=== PATIENT | male | born 1940 | race Caucasian/White ===

== ENCOUNTER 2017-12-10 13:46 | Inpatient (IN) | payer MEDICARE, OTHER ==
--- NOTE | 2017-12-10 14:18 | ED Physician Chart ---
ED Chief Complaint/HPI - Patient Information Date Seen:: 12/10/17 Time Seen:: 14:05 Chief Complaint:: depression History of Present Illness:: Last night patient stated he couldn't breathe so he told the nurse it his custodial facility that he likely would shoot himself. He denies any self -harm ideation at present. Allergies:: Allergies Allergy/AdvReac Type Severity Reaction Status Date / Time No Known Allergies Allergy Verified 12/10/17 14:01 Vitals:: Vital Signs - 8 hr 12/10/17 14:02 Temp 98.8 F HR 81 RR 16 BP 121/72 O2 Sat % 90 Historian:: Patient Review:: Transfer documents Reviewed ED Review of Systems - Review of Systems General/Constitutional: No fever, No chills Skin: Skin lesions Head: No headache Eyes: No loss of vision ENT: No earache Neck: No neck pain Cardio Vascular: No chest pain Pulmonary: No SOB GI: No nausea, No vomiting, No diarrhea G/U: No dysuria Musculoskeletal: No bone or joint pain Endocrine: No polyuria, No polydipsia Psychiatric: Prior psych history, Depression, Suicidal ideation Hematopoietic: No bruising Allergic/Immuno: No urticaria Neurological: No syncope, No focal symptoms, No weakness ED Past Medical History - Past Medical History Past Medical History: HTN, DM, Asthma/COPD, Other (.) Family History: None Social History: Non Smoker, No Alcohol, Care Facility, Other (patient states he used to smoke cigarettes and formerly drank alcohol in moderation) Surgical History: other (malignant melanoma with lymph node dissection left groin) Psychiatricy History: Depression Medication: Reviewed Family Medical History - Family Member Mother History Unknown: Yes ED Physical Exam - Physical Examination General/Constitutional: Alert Other Gen/Cons comments:: Chronically ill-appearing; in no acute distress; states the year is either 2016 oh 2018 Head: Atraumatic Eyes: Lids, conjuctiva normal Other Skin comments:: Facial capillaries noted; skin (especially legs) are pale ENMT: External ears, nose nl Other ENMT comments:: Declines examination of his throat Neck: No nuchal rigidity Respiratory: Nl effort/Exclusion Other Respiratory comments:: 1 out of 4 scattered expiratory wheezing Other Cardio Vascular comments:: Heart sounds are faint; pulse is regular GI: No tenderness/rebounding/guarding : No CVA tenderness Other Extremities comments:: Redness and crusting distal left lower leg; 4 out of 4 swelling left ankle and left foot Neuro/Psych: No focal deficits Misc: Normal back ED Labs/Radiology/EKG Results - Lab Results Results: Laboratory Results - last 24 hr 12/10/17 12/10/17 14:20 14:20 WBC 7.2 RBC 2.68 L Hgb 8.1 L Hct 24.5 L MCV 91.4 MCH 30.4 MCHC Differential 33.2 RDW 20.8 H Plt Count 157 MPV 6.1 Neutrophils % 87.2 H Lymphocytes % 5.6 L Monocytes % 4.2 Eosinophils % 2.6 Basophils % 0.4 Sodium 135 L Potassium 4.6 Chloride 94 L Carbon Dioxide 41.3 H Anion Gap 4.3 L BUN 25 Creatinine 0.9 Est GFR ( Amer) TNP Est GFR (Non-Af Amer) TNP BUN/Creatinine Ratio 27.8 Glucose 118 H Calcium 9.0 Total Bilirubin 0.5 AST 18 ALT 45 Alkaline Phosphatase 126 H Total Protein 6.1 Albumin 2.5 L Globulin 3.6 Albumin/Globulin Ratio 0.7 L Triglycerides 109 Cholesterol 145 LDL Cholesterol Direct 89 HDL Cholesterol 37 - EKG Interpretations Rate & Rhythm: normal sinus rhythm with a rate of 74; [place]: normal Comments:: ST segment elevation in inferior leads most likely due to early repolarization. ED Assessment - Assessment General Assessment: Patient refuses venous Doppler of left leg ED Septic Shock - . Is Septic Shock (SBP<90, OR Lactate>4 mmol\L) present?: No - <6hrs of presentation: Vital Signs: Vital Signs - 8 hr 12/10/17 14:02 Temp 98.8 F HR 81 RR 16 BP 121/72 O2 Sat % 90 ED Reassessment (Disposition) - Reassessment Reassessment Condition:: Unchanged - Diagnosis Diagnosis:: Suicide ideation; depression; anemia; COPD - Patient Disposition Admitted to:: [facility] Admitting Medical Physician:: Alan Fleming Admitting Psych Physician:: Drea Spencer Condition at Disposition:: Stable, Improved
[2017-12-10 14:37] LABS: % BASOPHILS 0.4 % (0.0-2.0); % EOSINOPHILS 2.6 % (0.0-5.0); % LYMPHOCYTES 5.6 % (20.0-50.0); % MONOCYTES 4.2 % (2.0-10.0); % NEUTROPHILS 87.2 % (40.0-80.0); EOSINOPHILE ABSOLUTE 0.2 Th/cmm (0.1-0.4); HEMATOCRIT 24.5 % (41.0-60); HEMOGLOBIN 8.1 gm/dL (12-16); LYMPHOCYTE ABSOLUTE 0.4 Th/cmm (1.5-3.0); MEAN CELL VOLUME 91.4 fl (80-99); MEAN CORPUSCULAR HEMOGLOBIN 30.4 pg (27.0-31.0); MEAN CORPUSCULAR HGB CONC 33.2 pg (28.0-36.0); MEAN PLATELET VOLUME 6.1 fl; MONOCYTE ABSOLUTE 0.3 Th/cmm (0.3-1.0); NEUTROPHILE ABSOLUTE 6.3 Th/cmm (1.8-8.0); PLATELET COUNT 157 Th/cmm (150-400); RED BLOOD COUNT 2.68 Mil/cmm (3.80-5.80); RED CELL DISTRIBUTION WIDTH 20.8 % (11.5-20.0); WHITE BLOOD COUNT 7.2 Th/cmm (4.8-10.8)
[2017-12-10 14:48] LABS: ALB/GLOB RATIO 0.7 (1.0-1.8); ALBUMIN 2.5 gm/dL (4.2-5.5); ALKALINE PHOSPHATASE 126 U/L (34-104); BILIRUBIN,TOTAL 0.5 mg/dL (0.3-1.0); BUN - UREA NITROGEN 25 mg/dL (7-25); CHLORIDE 94 mEq/L (98-107); CHOLESTEROL 145 mg/dL (<200); CREATININE - SERUM 0.9 mg/dL (0.7-1.3); GLUCOSE 118 mg/dL (70-105); HDL -HIGH DENSITY LIPOPROTEIN 37 mg/dL (23-92); POTASSIUM SERUM 4.6 mEq/L (3.5-5.1); SGOT 18 U/L (13-39); SGPT/ALT 45 U/L (7-52); SODIUM SERUM 135 mEq/L (136-145); TOTAL PROTEIN,SERUM 6.1 gm/dL (6.0-8.3); TRIGLYCERIDES 109 mg/dL (<150)
[2017-12-10 15:10] LABS: ANION GAP 4.3 (7.0-16.0); CARBON DIOXIDE 41.3 mEq/L (21.0-31.0)
[2017-12-10 17:01] LABS: A1C % 6.3 % (4.0-6.0)
[2017-12-10 20:03] VITALS: BP 124/60
[2017-12-10] MEDS ORDERED: Non-Formulary Item 1 EA (Acetaminophen [Pain Reliever] 650 MG) PO PRN (21:38)
[2017-12-10] MEDS ORDERED: ALBUTEROL SULFATE HHN PRN (21:38)
[2017-12-10] MEDS ORDERED: INSULIN ASPART SLIDING SCALE 100 UNITS/ML UNIT SUBQ SCH (21:45)
[2017-12-10] MEDS: Albuterol/Ipratropium Neb 3 ML AERS HHN PRN (22:32)
[2017-12-11] MEDS: Albuterol/Ipratropium Neb 3 ML AERS HHN PRN (00:38)
[2017-12-11] MEDS ORDERED: Albuterol Nebulizer 2.5mg/3mL HHN SCH (07:00)
[2017-12-11] MEDS: Albuterol Nebulizer 2.5mg/3mL HHN SCH ×2 (07:02→11:06)
[2017-12-11] MEDS ORDERED: INSULIN ASPART SLIDING SCALE 100 UNITS/ML UNIT SUBQ SCH (07:30)
--- NOTE | 2017-12-11 08:36 | History and Physical ---
History of Present Illness - HPI Chief Complaint: depression w/ suicidal ideations HPI: 77 year old male who is severely depression noted at the SNF to have told the nurse that he likely "shoot himself." Patient has a previous history of HTN,DM, Asthma,COPD, malignant melanoma w/ lymph node dissection L groin. 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 Pertinent Hx GI: Report: No Pertinent Hx Psych: Report: Depression Musculoskeletal: Report: No Pertinent Hx Rheumatologic: Report: No pertinent Hx Infectious Disease: Report: No Pertinent Hx Renal/: Report: No Pertinent Hx Endocrine: Report: Diabetes Dermatology: Report: Melanoma - Past Surgical History Past Surgical History: Other (L groin dissection for malignant melanoma) Family Medical History - Family Member Mother History Unknown: Yes Social History Smoke: No Alcohol: None Drugs: None Lives: [facility] - Medications Home Medications: Home Medication Medication Instructions Recorded Type Acetaminophen [Pain Reliever] 650 mg PO Q4H PRN 12/10/17 History Acetaminophen [Pain Reliever] 650 mg PO Q6H PRN 12/10/17 History Acetylcysteine 20% [Mucomyst 20%] 0.5 ml INH Q4H PRN 12/10/17 History Albuterol Sulfate 3 ml HHN Q4H PRN 12/10/17 History Amiodarone HCl 200 mg PO BID 12/10/17 History Ascorbic Acid [Vitamin C] 500 mg PO DAILY 12/10/17 History Citalopram Hydrobromide [Celexa] 20 mg PO DAILY 12/10/17 History Diltiazem [Cardizem] 30 mg PO TID 12/10/17 History Furosemide [Lasix] 20 mg PO Q12H 12/10/17 History Guaifenesin [Mucus Relief] 600 mg PO BID 12/10/17 History Insulin Aspart Sliding Scale See Protocol SUBQ PRN 12/10/17 History [NovoLOG INSULIN SLIDING SCALE] Insulin Detemir [Levemir Insulin] 35 iu SUBQ HS 12/10/17 History Ipratropium/Albuterol Sulfate 3 ml INH Q2H PRN 12/10/17 History [Iprat-Albut 0.5-3(2.5) mg/3 ml] Menthol-Zinc Oxide 0.44 - 20.625 % TP BID 12/10/17 History Metoprolol Tartrate 25 mg PO BID 12/10/17 History Midodrine HCl 1 tab PO Q8H PRN 12/10/17 History Multivitamin with Minerals 1 tab PO DAILY 12/10/17 History [Multivitamins with Minerals] Pantoprazole Sodium 1 tab PO DAILY 12/10/17 History Rivaroxaban [Xarelto] 20 mg PO DAILY 12/10/17 History Trazodone HCl 1 tab PO HS 12/10/17 History - Allergies Allergies/Adverse Reactions: Allergies Allergy/AdvReac Type Severity Reaction Status Date / Time No Known Allergies Allergy Verified 12/10/17 14:01 Review of Systems - Review of Systems Constitutional: Report: No Significant Eyes: Report: No Significant ENT: Report: No Significant Respiratory: Report: No Significant Cardiovascular: Report: No Significant Gastrointestinal: Report: No Significant Genitourinary: Report: No Significant Musculoskeletal: Report: No Significant Skin: Report: No Significant Neurological: Report: No Significant Physical Exam - Physical Exam HEENT: Report: Ears Nose Throat within normal limits, Pharnyx within normal limits Neck: Report: Within normal limits Cardiovascular Systems: Report: +s1/s2 noted, Regular, Rate and Rhythm Respiratory: Report: Breath Sounds are within normal limits, Clear to Auscultation of lung gomez Abdomen: Report: Non-tender to palpation Back: Report: Inspection of back is within normal limits. Skin: Report: Color of skin is within normal limits Neuro/Psych: Report: Depressed affect - Assessment Assessment: severe depression HTN DM Anemia r/o GIB r/o CA h/o malignant melanoma w/ lymph node dissection L groin - Plan Plan: will order stool occult cbc, cmp tomorrow hem/onc consult GI consult chest xray KUB PT/PTT/INR doppler US venous pending
[2017-12-11] MEDS ORDERED: Diltiazem 30 mg Tab PO SCH (09:00)
[2017-12-11] MEDS ORDERED: Menthol/Zinc Oxide Oint 113gm Tube TP SCH (09:00)
[2017-12-11] MEDS ORDERED: Pantoprazole 40 mg EC Tab PO SCH ×2 (09:00)
[2017-12-11] MEDS ORDERED: Multivitamin w/ Minerals Tab PO SCH (09:00)
[2017-12-11 09:30] LABS: INR 1.02 (0.5-1.4); PROTHROMBIN TIME (TEST) 10.6 SECONDS (9.5-11.5)
[2017-12-11 10:11] LABS: HEMATOCRIT 24.1 % (41.0-60); MEAN CELL VOLUME 92.1 fl (80-99); MEAN CORPUSCULAR HEMOGLOBIN 29.4 pg (27.0-31.0); MEAN CORPUSCULAR HGB CONC 31.9 pg (28.0-36.0); MEAN PLATELET VOLUME 6.4 fl; PLATELET COUNT 166 Th/cmm (150-400); RED BLOOD COUNT 2.62 Mil/cmm (3.80-5.80); RED CELL DISTRIBUTION WIDTH 20.9 % (11.5-20.0); WHITE BLOOD COUNT 7.2 Th/cmm (4.8-10.8)
[2017-12-11 10:24] LABS: ALB/GLOB RATIO 0.7 (1.0-1.8); ALBUMIN 2.4 gm/dL (4.2-5.5); ALKALINE PHOSPHATASE 115 U/L (34-104); ANION GAP 6.4 (7.0-16.0); BILIRUBIN,TOTAL 0.5 mg/dL (0.3-1.0); BUN - UREA NITROGEN 21 mg/dL (7-25); CALCIUM SERUM 8.9 mg/dL (8.6-10.3); CHLORIDE 96 mEq/L (98-107); CREATININE - SERUM 0.9 mg/dL (0.7-1.3); GLUCOSE 159 mg/dL (70-105); POTASSIUM SERUM 4.4 mEq/L (3.5-5.1); SGOT 14 U/L (13-39); SGPT/ALT 35 U/L (7-52); SODIUM SERUM 137 mEq/L (136-145)
[2017-12-11 10:27] LABS: HEMOGLOBIN 7.7 gm/dL (12-16)
--- NOTE | 2017-12-11 10:28 | Diagnostic Imaging Report ---
Portable chest x-ray HISTORY: Shortness of breath The heart size is difficult to assess with portable technique. There is severe bilateral pulmonary infiltrates (right greater than left). The overall appearance suggests chronic change. Pleural thickening along with abnormal streaky pulmonary parenchymal density noted within the left upper hemithorax. Again, the findings appear chronic. Atherosclerotic calcination seen in the aorta. Diffuse degenerative changes are seen to the spine. IMPRESSION: 1. Severe bilateral interstitial lung changes along with pleural thickening within the left apical area. The overall appearance suggests chronic change. Superimposed pneumonia cannot be excluded. Clinical correlation is needed.
--- NOTE | 2017-12-11 10:29 | Diagnostic Imaging Report ---
KUB abdominal film HISTORY: Pain, melanoma There is a nonspecific gas pattern of nondilated bowel. Stool noted within the ascending colon and rectal regions. No free. No air. Surgical clips are seen in the right upper quadrant of the abdomen consistent with a prior cholecystectomy. IMPRESSION: 1. Nonspecific bowel gas pattern 2. Findings consistent with a prior cholecystectomy
[2017-12-11 11:09] LABS: BAND NEUTROPHILE 3 % (0-10); LYMPHOCYTE 3 % (20-50); MONOCYTE 4 % (2-10); NEUTROPHILS 90 % (40-80); PLATELET ESTIMATE ADEQUATE (NORMAL); TOTAL CELLS COUNTED 100
--- NOTE | 2017-12-11 13:18 | Psychosocial Evaluation ---
DATE OF SERVICE: 12/11/2017 Also, this is a discharge summary as the patient was sent to the med/surg unit because of low oxygen. IDENTIFYING INFORMATION: The patient is a 77-year-old male. REASON FOR ADMISSION: The patient was admitted because of depression. When I talked to the patient, he answered all my questions "I don't know." He was not interested in answering any of my questions. He asked me to leave. He was very irritable. I was unable to get any information from this patient because of his behavior. The patient was sent from the [facility] because of depression. He reported to them that he wanted to harm himself; however, when I asked the patient about that, he would not answer me. He would not answer any question regarding sleep, appetite, suicide, or homicide. He was irritable. PAST PSYCHIATRIC HISTORY: Depression. The patient has been on citalopram 20 mg a day and trazodone. MEDICAL HISTORY: He has a history of hypertension and COPD. He is on oxygen. Apparently, oxygen went down to 86, so he has to be transferred to medical floor. ALLERGIES: The patient has no known drug allergies. FAMILY AND SOCIAL HISTORY: Unobtainable because the patient refused to participate. Apparently, he has been living in a nursing facility at the [facility]. MENTAL STATUS EXAMINATION: The patient was alert, but irritable. He would not tell me the date, where he is, and why he is here. He has been reported to be depressed and told the staff at the care home that he was suicidal. Unable to test his intelligence. He denies about suicide or homicide, but would not answer me. He would not participate in memory testing or do any formal mental status exam. His insight and judgment are impaired. IMPRESSION: AXIS I: Depression, not otherwise specified. ASSETS: He was accepting. Negative poor coping skills. PLAN: The patient will be transferred to the medical floor. We will keep him on suicide precaution. We will continue with Celexa. The patient was discharged to the med/surg unit. Expect him to come back when he is medically cleared to adjust his medications. JOB# [id number]
--- NOTE | 2017-12-11 20:57 | Consultation ---
DATE OF CONSULTATION: 12/11/2017 REFERRING PHYSICIAN: Alan Fleming D.O. REASON FOR CONSULTATION: Melanoma and anemia. HISTORY OF PRESENT ILLNESS: The patient is a 77-year-old male who was admitted to geropsych unit because of saying he is going to shoot himself. The patient was found to be anemic and history of melanoma. Therefore, I was asked to evaluate. PAST MEDICAL HISTORY: Hypertension, diabetes, asthma, COPD, psychosis, melanoma as mentioned above. MEDICATIONS: Reviewed. SOCIAL HISTORY: Resides in a nursing facility. PAST SURGICAL HISTORY: Melanoma resection and lymph node dissection from left groin. PHYSICAL EXAMINATION: GENERAL: The patient is not in a good mood, not very cooperative, but he let me examine his back to previous melanoma that he said it is in the upper back. VITAL SIGNS: Stable. HEENT: Atraumatic. NECK: No lymphadenopathy. CHEST: Good air entry. ABDOMEN: Soft. No organomegaly, obese. BACK: Scars of previous infection on the upper abdomen. EXTREMITIES: Edema of left lower extremity. LABORATORY DATA: Hemoglobin 7.7, normal MCV, white count and platelets are normal PT, PTT normal. Creatinine 0.9. Chest x-ray was reviewed, no neoplasm or interstitial infiltrate. ASSESSMENT: 1. Anemia of normocytic index. Stool occult blood was ordered. I will get ferritin, iron binding capacity, B12 and folate level. 2. History of melanoma with lymph node dissection from left groin. The swelling in left lower extremity could be related to lymph node dissection, left groin. However, venous duplex to evaluate for deep vein thrombosis will be required. Initial order was placed and the patient refused. I will place another order and I spoke with the patient. He seems to agree and follow CBC. There is no need for transfusion today. There is no clinical evidence of recurrence of melanoma at this time. Thank you, Dr. Fleming for the opportunity to participate in the care of this interesting case for you. JOB# [id number]
[2017-12-11] MEDS ORDERED: Insulin Detemir 100 units/mL 10mL Vial SUBQ SCH (21:00)
[2017-12-13 04:08] LABS: FOLIC ACID 13.7 ng/mL (>3.0)
[2017-12-13 04:08] LABS: FERRITIN 209 ng/mL (30-400); IRON LC 52 ug/dL (38-169); TIBC (LC) 187 ug/dL (250-450); UIBC 135 ug/dL (111-343)
--- NOTE | 2017-12-20 17:27 | Progress Notes ---
DATE: 12/20/2017 Case was discussed with staff of the patient, reviewed records. The patient continued to be depressed, continues to be ____ himself, but in general, he is better. His affect is more animated. He is able to converse more. He denies any current intent to harm himself or anybody. He is eating better, 75% of his meals. The swelling in his left lower extremity and he did the study, it was negative for DVT. So far, he is compliant with the medication with no side effects. He is on Remeron 7.5 mg at bedtime with no side effects. Thank you very much for allowing me to participate in the care of this most interesting gentleman. JOB# [id number]
== END 2017-12-11 11:26 | DRG 885 ==
LOC: ER 13:46 → GERO2 16:00
PROVIDERS: ADMIT Psychiatry & Neurology Psychiatry; ATTEND Psychiatry & Neurology Psychiatry
DX: F32.2 Major depressive disorder, single episode, severe without psychotic features (principal); E43 Unspecified severe protein-calorie malnutrition; R45.851 Suicidal ideations; D64.9 Anemia, unspecified; E11.9 Type 2 diabetes mellitus without complications; J44.9 Chronic obstructive pulmonary disease, unspecified; I10 Essential (primary) hypertension; Z79.4 Long term (current) use of insulin; Z87.891 Personal history of nicotine dependence; Z85.820 Personal history of malignant melanoma of skin
CPT/HCPCS: 36415-UA; 71045-TC; 74000-TC; 80053-TC; 80061-TC; 82607-90; 82728-90; 82746-90; 83036-90; 83540-90; 83550-90; 83880-TC; 84443-TC; 85007-TC; 85025-TC; 85027-TC; 85610-TC; 85730-TC; 86592-TC; 93005; 94640; 94760; J0696; J1815; J7613; Z7610

== ENCOUNTER 2017-12-11 09:56 | Inpatient (IN) | payer MEDICARE, OTHER ==
[2017-12-11 12:17] VITALS: BP 116/54
[2017-12-11] MEDS ORDERED: ERYTHROMYCIN LACT IV SCH (12:45)
[2017-12-11] MEDS ORDERED: SODIUM CHLORIDE 0.9% IV SCH (12:45)
[2017-12-11 13:34] LABS: HEMATOCRIT 24.1 % (41.0-60); MEAN CELL VOLUME 92.2 fl (80-99); MEAN CORPUSCULAR HEMOGLOBIN 30.2 pg (27.0-31.0); MEAN CORPUSCULAR HGB CONC 32.8 pg (28.0-36.0); MEAN PLATELET VOLUME 6.3 fl; PLATELET COUNT 189 Th/cmm (150-400); RED BLOOD COUNT 2.62 Mil/cmm (3.80-5.80); RED CELL DISTRIBUTION WIDTH 20.6 % (11.5-20.0)
[2017-12-11 13:46] LABS: HEMOGLOBIN 7.9 gm/dL (12-16); MANUAL DIFF REQUIRED? YES
[2017-12-11 14:08] LABS: BAND NEUTROPHILE 2 % (0-10); LYMPHOCYTE 7 % (20-50); MONOCYTE 4 % (2-10); NEUTROPHILS 86 % (40-80); TOTAL CELLS COUNTED 100
[2017-12-11 14:09] LABS: EOSINOPHIL 1 % (0-5); PLATELET ESTIMATE ADEQUATE (NORMAL)
[2017-12-11 15:15] LABS: ALB/GLOB RATIO 0.7 (1.0-1.8); ALBUMIN 2.4 gm/dL (4.2-5.5); ALKALINE PHOSPHATASE 114 U/L (34-104); BILIRUBIN,TOTAL 0.5 mg/dL (0.3-1.0); BUN - UREA NITROGEN 21 mg/dL (7-25); CALCIUM SERUM 9.1 mg/dL (8.6-10.3); CHLORIDE 96 mEq/L (98-107); CREATININE - SERUM 0.9 mg/dL (0.7-1.3); GLUCOSE 129 mg/dL (70-105); POTASSIUM SERUM 4.4 mEq/L (3.5-5.1); SGOT 14 U/L (13-39); SGPT/ALT 34 U/L (7-52); SODIUM SERUM 137 mEq/L (136-145)
[2017-12-11 15:20] LABS: CARBON DIOXIDE 40.4 mEq/L (21.0-31.0)
[2017-12-11] MEDS: Albuterol Nebulizer 2.5mg/3mL HHN PRN ×2 (15:22→18:44)
[2017-12-11] MEDS ORDERED: INSULIN ASPART SLIDING SCALE 100 UNITS/ML UNIT SUBQ SCH (16:30)
--- NOTE | 2017-12-11 17:01 | History and Physical ---
History of Present Illness - HPI Chief Complaint: Low O2 HPI: 77 year old male who is was originally admitted to [facility] for severe depression and for possible thoughts of hurting himself. Patient was noted to have increased chest congestion and low O2 and was subsequently transferred to med/surg for further evaluation and treatment. Patient has a history of HTN,DM, Asthma, COPD, malignant melonoma w/ lymph node dissection to the L groin. 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 Pertinent Hx GI: Report: No Pertinent Hx Psych: Report: Depression Musculoskeletal: Report: No Pertinent Hx Rheumatologic: Report: No pertinent Hx Infectious Disease: Report: No Pertinent Hx Renal/: Report: No Pertinent Hx Endocrine: Report: Diabetes Dermatology: Report: Melanoma - Past Surgical History Past Surgical History: Other (s/p L groin dissection of a malignant melonoma) Family Medical History - Family Member Mother History Unknown: Yes Social History Smoke: No Alcohol: None Drugs: None Lives: Senior Living - Medications Home Medications: Home Medication Medication Instructions Recorded Type Acetaminophen [Pain Reliever] 650 mg PO Q4H PRN 12/10/17 History Pantoprazole Sodium 1 tab PO DAILY 12/10/17 History Acetaminophen [Tylenol] 650 mg PO Q6H PRN tab 12/11/17 Rx Acetylcysteine 20% [Mucomyst 20%] 0.5 ml HHN [id number] vial 12/11/17 Rx Albuterol Nebulizer 2.5mg/3mL 1.25 mg HHN [id number] each 12/11/17 Rx [Albuterol Neb UD*] Albuterol/Ipratropium Neb [Duoneb 3 ml HHN Q2H PRN aers 12/11/17 Rx Neb] Amiodarone [Cordarone] 200 mg PO BID tab 12/11/17 Rx Ascorbic Acid [Vitamin C] 500 mg PO DAILY tab 12/11/17 Rx Citalopram Hydrobromide [celeXA] 20 mg PO DAILY tab 12/11/17 Rx Diltiazem [Cardizem*] 30 mg PO TID tab 12/11/17 Rx Furosemide [Lasix] 20 mg PO Q12H tab 12/11/17 Rx Insulin Aspart Sliding Scale See Protocol SUBQ ACHS unit 12/11/17 Rx [NovoLOG INSULIN SLIDING SCALE] Insulin Detemir [Levemir Insulin] 35 units SUBQ HS vial 12/11/17 Rx Lorazepam [Ativan] 0.5 mg PO Q6HR PRN tab 12/11/17 Rx Menthol/Zinc Oxide [Calmoseptine] 0 - 1 appl TP BID appl 12/11/17 Rx Metoprolol Tartrate [Lopressor] 25 mg PO BID tab 12/11/17 Rx Midodrine [Proamatine] 5 mg PO Q8H PRN tab 12/11/17 Rx Multivitamin w/ Minerals 1 tab PO DAILY tab 12/11/17 Rx [Theragran M] Pantoprazole [Protonix] 40 mg PO DAILY ect 12/11/17 Rx Rivaroxaban [Xarelto] 20 mg PO DAILY tab 12/11/17 Rx Zolpidem Tartrate [Ambien] 5 mg PO HS PRN tab 12/11/17 Rx guaiFENesin [Mucinex] [address] 12/11/17 Rx traZODone HCl [Desyrel*] 50 mg PO HS tab 12/11/17 Rx - Allergies Allergies/Adverse Reactions: Allergies Allergy/AdvReac Type Severity Reaction Status Date / Time No Known Allergies Allergy Verified 12/10/17 14:01 Review of Systems - Review of Systems Constitutional: Report: No Significant Eyes: Report: No Significant ENT: Report: No Significant Respiratory: Report: No Significant Cardiovascular: Report: No Significant Gastrointestinal: Report: No Significant Genitourinary: Report: No Significant Musculoskeletal: Report: No Significant Skin: Report: No Significant Neurological: Report: No Significant Physical Exam - Physical Exam HEENT: Report: Ears Nose Throat within normal limits, Pharnyx within normal limits Neck: Report: Within normal limits Cardiovascular Systems: Report: +s1/s2 noted, Regular, Rate and Rhythm Respiratory: Report: Other (decreased breath sounds) Abdomen: Report: Non-tender to palpation, Tender to palpation Back: Report: Inspection of back is within normal limits. Extremities: Report: Non-tender to palpation. - Lab Results All Lab Results last 24 hours: Laboratory Results - last 24 hr 12/11/17 12/11/17 12/11/17 12:38 13:20 13:20 WBC 8.0 RBC 2.62 L Hgb 7.9 L* Hct 24.1 L MCV 92.2 MCH 30.2 MCHC Differential 32.8 RDW 20.6 H Plt Count 189 MPV 6.3 Band Neutrophils % 2 Neutrophils (Manual) 86 H Lymphocytes 7 L Monocytes 4 Eosinophils 1 Platelet Estimate ADEQUATE Sodium 137 Potassium 4.4 Chloride 96 L Carbon Dioxide 40.4 H Anion Gap 5.0 L BUN 21 Creatinine 0.9 Est GFR ( Amer) TNP Est GFR (Non-Af Amer) TNP BUN/Creatinine Ratio 23.3 Glucose 129 H POC Glucose 130 H Calcium 9.1 Total Bilirubin 0.5 AST 14 ALT 34 Alkaline Phosphatase 114 H Total Protein 6.0 Albumin 2.4 L Globulin 3.6 Albumin/Globulin Ratio 0.7 L - Assessment Assessment: acute bronchitis COPD asthma HTN DM Anemia r/o GIB h/o malignant melanoma w/ lymph node dissection of the L groin - Plan Plan: see orders
[2017-12-11] MEDS: INSULIN ASPART SLIDING SCALE 100 UNITS/ML UNIT SUBQ SCH ×2 (18:19→22:00)
[2017-12-11] MEDS ORDERED: Pneumococcal Vaccine 0.5 mL Vial IM ONE (19:26)
--- NOTE | 2017-12-11 23:19 | Consultation ---
DATE OF CONSULTATION: 12/11/2017 GASTROENTEROLOGY CONSULTATION TYPE OF CONSULTATION: Gastroenterology. REQUESTING PHYSICIAN: Alan Fleming DO REASON FOR CONSULTATION: Anemia. HISTORY OF PRESENT ILLNESS: A 77-year-old male admitted [facility] to the [facility]. We were asked to evaluate the patient for anemia. The patient is a poor historian. He reports never having had an upper endoscopy, but perhaps a colonoscopy 10 years ago that was unremarkable. He denies abdominal pain, nausea, vomiting, diarrhea or constipation. He does have poor oral intake and complains of early satiety after 2 bites of food. Past medical history notable for diabetes mellitus, hypertension, asthma, COPD, and malignant melanoma of the back, status post removal. PAST MEDICAL HISTORY: As above, also notable for asthma, COPD, and cholecystectomy. SOCIAL HISTORY: Past tobacco, past alcohol, no drugs. FAMILY HISTORY: Noncontributory. REVIEW OF SYSTEMS: A comprehensive 12-point review of system was conducted and is only positive for those signs and symptoms present in present illness. MEDICATIONS: Here are albuterol, azithromycin, Rocephin and insulin sliding scale. PHYSICAL EXAMINATION: VITAL SIGNS: Temperature of 97.8, blood pressure 116/54, pulse of 76, respirations 20, O2 sat 94% on 3 liters O2 nasal cannula. GENERAL: The patient is well-developed elderly male in no acute distress. HEENT: Sclerae nonicteric. Oropharynx is clear. CARDIOVASCULAR: Regular rate and rhythm. LUNGS: Clear to auscultation bilaterally. ABDOMEN: Soft, nontender, nondistended. EXTREMITIES: No clubbing, cyanosis or edema. RECTAL: Deferred. LABORATORY DATA AND IMAGING: WBC 8, hemoglobin 7.9, MCV is 92, and platelet count is 189. Creatinine is 0.9. Liver enzymes are normal except for alkaline phosphatase mildly elevated to 114, albumin is 2.4. KUB done earlier today shows nonspecific bowel gas pattern with findings consistent with cholecystectomy. IMPRESSION: 1. Anemia, multifactorial, could be from slow gastrointestinal blood loss including peptic ulcer disease, gastritis, neoplasm, angiodysplasia, hemorrhoids, etc. 2. Depression with possible suicidal ideation. 3. History of malignant melanoma status post removal. 4. History of diabetes mellitus and hypertension. RECOMMENDATIONS: 1. Check anemia labs. 2. Upper endoscopy and colonoscopy offered to the patient, but he refuses. He is aware of risk of missed or delayed diagnosis of potential polyp or bleeding lesion that can be corrected right away. He is aware that a delay in diagnosis may result in untimely care including morbidity and mortality. I will try to convince the patient further if stool OB is positive and/or there is evidence of iron deficiency. 3. Monitor hemoglobin, transfuse as necessary. 4. Diet as tolerated. Thank you, Dr. Alan Fleming for involving us in the care of your patient. If you have any further questions, please call us. JOB# [id number]
--- NOTE | 2017-12-12 00:34 | Consultation ---
DATE OF CONSULTATION: 12/11/[address] Alan Fleming. HISTORY AND PHYSICAL: This 77-year-old male patient came to the Emergency Room in the nursing home facility. The patient said he would shoot himself. He could inflict injury to himself and hence patient was transferred to the hospital. The patient complained of chest pain, shortness of breath and cardiac consult is requested. PAST MEDICAL HISTORY: Congestive heart failure, major depression, bipolar, COPD, hypertension, diabetes mellitus type 2, asthma, malignant melanoma with resection of the groin. FAMILY HISTORY: Unremarkable. SOCIAL HISTORY: No history of smoking, alcohol abuse. ALLERGIES: No known allergies. PHYSICAL EXAMINATION: VITAL SIGNS: Blood pressure 130/80, pulse 70, respirations 20. HEAD: Normocephalic. No lumps or bumps. EYES: Pupils equal, reactive to light. Fundi showing nicking. Sclerae white, conjunctivae pink. NECK: Carotid 2+. Normal upstroke. JVD flat. Thyroid not palpable. Lymph nodes not palpable. CHEST: Shows increased AP diameter. No kyphosis, scoliosis. LUNGS: Bilateral bronchovesicular breath sounds. HEART: PMI fifth intercostal space with lateral to midclavicular line. S1, S2. No S3, S4, soft systolic murmur. ABDOMEN: Soft. Liver, spleen not palpable. No organomegaly. Bowel sounds active. NEUROLOGIC: Unremarkable. EXTREMITIES: Peripheral pulses 2+. No pedal edema. CLINICAL IMPRESSION: Acute respiratory failure, acute exacerbation of chronic obstructive pulmonary disease, congestive heart failure, diastolic dysfunction, chronic, iron deficiency anemia, diabetes mellitus type 2, hypertension, asthma, malignant melanoma resection. PLAN: Admit the patient. We will put on the monitor, echocardiogram, control the heart rate and continue present care. JOB# [id number]
[2017-12-12] MEDS: Azithromycin 250 MG in Sodium Chloride 0.9% 250 ML IV SCH ×2 (02:05→14:47)
--- NOTE | 2017-12-12 02:40 | Consultation ---
DATE OF CONSULTATION: 12/11/2017 PULMONARY/CRITICAL CARE CONSULTATION REASON FOR CONSULTATION: Help the patient with abnormal chest x-ray and hypoxemia. CONSULT NOTE: This is a 77-year-old gentleman who was transferred from other facility because of threatening himself for shooting himself subsequently, reason not clear. The patient was brought to the [facility] up here. Subsequently, initially workup reported abnormal chest x-ray and/or hypoxemia. Subsequently, the patient was started to Med-Surg unit, where I was asked to see this patient for further evaluation and necessary treatment. The patient is awake. He does not know where he is, does not know why he is here. He denies of any smoking. He denies of any chest pain and [place] Very minimal history from the patient is available to me at this particular time. On reviewing the record, there may possibly history of malignant melanoma with possibly left groin dissection, though he does not have the time frame, etc. PAST MEDICAL HISTORY: History of hypertension, history of diabetes mellitus, asthma, COPD. This is by history and other history is very sketchy. SOCIAL HISTORY: He does not know where he lives, but lives separately in a convalescent home and other occupational history, etc. are very minimal. HOME MEDICATIONS: On reviewing the record of home medicines, he has been taking multiple antihypertensive and antiarrhythmic medications and also taking antidepressants as well as insulin as well as breathing treatment as well as other multiple medications at home. PHYSICAL FINDINGS: GENERAL: This is an elderly looking gentleman, awake, does not answer much of question, appears to be hard of hearing. No respiratory distress, etc. VITAL SIGNS: The patient's recorded vitals: Temperature is 97.8, heart rate is 76, blood pressure is 116/74, respirations 20, saturation is mid 90s on 3 liters. HEENT: Examination of the head is essentially unremarkable. Pupils appear to be equal and reacting to light. Conjunctivae are pallor. Oral cavity shows poor dental hygiene with small oropharyngeal opening. No palpable nodes in the neck could be palpated. CHEST: Shows slightly increase in the PA diameter. On auscultation, occasional rales and occasional rhonchi, but otherwise unremarkable. HEART: Irregular. ABDOMEN: Soft, nontender. EXTREMITIES: Left english shows some swelling, presumably from trauma, but some slight calf tenderness on the left leg. Poor pulsations. LABORATORY DATA: The patient's CBC: White count is 7.2, hemoglobin 7.9 and neutrophils 96. INR is 0.02. Electrolytes are okay with CO2 content 40, BUN is 21, sugar is borderline high. The patient's chest x-ray: Extensive bilateral infiltrate, chronic with some cicatricial changes in the left upper lobe. Cardiac size is normal. IMPRESSION: 1. The patient has extensive pulmonary fibrosis. The exact nature is not clear, difference is because occupational versus possibly amiodarone causing pulmonary fibrosis if it is not watched for a long time. 2. Question chronic obstructive pulmonary disease. 3. Hypoxemia secondary to above. 4. Psychosis, questionable hypercarbia. 5. Questionable deep venous thrombosis of left leg. PLANS AND SUGGESTIONS: We will institute aggressive respiratory care. We will give inhalation treatment. We will check blood gases in the morning. We will get a HRCT of the chest and also DVT studies on the left leg and watch other electrolytes, etc. and see what it is, how it is and go from there for further recommendations. Thank you very much for letting me to see this patient. I will be glad to follow along with you. JOB# [id number]
[2017-12-12] MEDS: INSULIN ASPART SLIDING SCALE 100 UNITS/ML UNIT SUBQ SCH ×2 (06:43→22:38)
[2017-12-12] MEDS: Budesonide 0.5 Mg/2 mL Ud HHN SCH ×2 (07:31→19:28)
[2017-12-12] MEDS: Albuterol/Ipratropium Neb 3 ML AERS HHN SCH ×4 (07:31→19:08)
--- NOTE | 2017-12-12 08:23 | Diagnostic Imaging Report ---
CT Chest without IV contrast HISTORY: Interstitial lung disease COMPARISON: Chest x-ray performed earlier the same day. Technique: Axial images were obtained from the base of the neck to the upper abdomen without IV contrast. Reconstructions were made. Total DLP to 87, CTD I 6.6 Findings: Evaluation of the mediastinum is limited due to lack of IV contrast. Borderline prominent mediastinal lymph nodes are noted, the largest along the right paratracheal region measuring 1.3 x 0.7 cm. Moderate atherosclerotic vascular disease is noted. The aorta measures up to 3.8 cm. Heart size is normal. No pericardial effusion identified. Evaluation of the lungs demonstrates extensive emphysematous changes throughout the lungs with scattered areas of scarring. Multifocal bilateral nodular infiltrates are seen with mild bibasal consolidative changes and small bilateral pleural effusions. There is also consolidative changes and abnormal opacity of the left apex extending to the pleura with this region measuring 4.1 x 2.5 cm. The upper abdomen demonstrates small hepatic cysts. Cholecystectomy clips are noted. Degenerative changes of spine are noted. There is a 5 mm sclerotic lesion of the T10 vertebral body. IMPRESSION: Extensive emphysematous changes of the lungs with superimposed small multifocal nodular infiltrates. Additional more confluent right basal infiltrates are seen with bibasal consolidative changes and small bilateral effusions. Findings suggest pneumonia. Clinical correlation and follow-up is recommended to exclude neoplastic process. Left apical infiltrate extending to the pleura measuring 4.1 x 2.5 cm probably related to pneumonia and scarring. Neoplastic process is considered less likely. Correlation with old exams would be helpful for comparison. Follow-up is also recommended. Mild atherosclerotic vascular disease with ectatic aorta measuring up to 3.8 cm Borderline prominent mediastinal lymph nodes, nonspecific. Evidence of prior cholecystectomy. 5 mm sclerotic lesion of the T10 vertebral body, possibly a bone island. Please correlate with clinical history and old exams. Follow up surveillance is suggested.
[2017-12-12] MEDS ORDERED: D5-0.9%NS 1,000 ML IV ONE (08:32)
--- NOTE | 2017-12-12 08:34 | General Progress Note ---
Subjective - Review of Systems Service Date: 12/12/17 Subjective: Patient is awake, alert, no acute distress. However patient is irritable this AM. He has decrease appetite this AM. Objective - Results Result Diagrams: 12/11/17 13:20 12/11/17 13:20 Recent Labs: Laboratory Last Values WBC 8.0 Th/cmm (4.8-10.8) 12/11/17 13:20 RBC 2.62 Mil/cmm (3.80-5.80) L 12/11/17 13:20 Hgb 7.9 gm/dL (12-16) L* 12/11/17 13:20 Hct 24.1 % (41.0-60) L 12/11/17 13:20 MCV 92.2 fl (80-99) 12/11/17 13:20 MCH 30.2 pg (27.0-31.0) 12/11/17 13:20 MCHC Differential 32.8 pg (28.0-36.0) 12/11/17 13:20 RDW 20.6 % (11.5-20.0) H 12/11/17 13:20 Plt Count 189 Th/cmm (150-400) 12/11/17 13:20 MPV 6.3 fl 12/11/17 13:20 Band Neutrophils % 2 % (0-10) 12/11/17 13:20 Neutrophils (Manual) 86 % (40-80) H 12/11/17 13:20 Lymphocytes 7 % (20-50) L 12/11/17 13:20 Monocytes 4 % (2-10) 12/11/17 13:20 Eosinophils 1 % (0-5) 12/11/17 13:20 Platelet Estimate ADEQUATE (NORMAL) 12/11/17 13:20 Sodium 137 mEq/L (136-145) 12/11/17 13:20 Potassium 4.4 mEq/L (3.5-5.1) 12/11/17 13:20 Chloride 96 mEq/L (98-107) L 12/11/17 13:20 Carbon Dioxide 40.4 mEq/L (21.0-31.0) H 12/11/17 13:20 Anion Gap 5.0 (7.0-16.0) L 12/11/17 13:20 BUN 21 mg/dL (7-25) 12/11/17 13:20 Creatinine 0.9 mg/dL (0.7-1.3) 12/11/17 13:20 Est GFR ( Amer) TNP 12/11/17 13:20 Est GFR (Non-Af Amer) TNP 12/11/17 13:20 BUN/Creatinine Ratio 23.3 12/11/17 13:20 Glucose 129 mg/dL (70-105) H 12/11/17 13:20 POC Glucose 99 MG/DL (70 - 105) 12/12/17 06:37 Calcium 9.1 mg/dL (8.6-10.3) 12/11/17 13:20 Total Bilirubin 0.5 mg/dL (0.3-1.0) 12/11/17 13:20 AST 14 U/L (13-39) 12/11/17 13:20 ALT 34 U/L (7-52) 12/11/17 13:20 Alkaline Phosphatase 114 U/L (34-104) H 12/11/17 13:20 Total Protein 6.0 gm/dL (6.0-8.3) 12/11/17 13:20 Albumin 2.4 gm/dL (4.2-5.5) L 12/11/17 13:20 Globulin 3.6 gm/dL 12/11/17 13:20 Albumin/Globulin Ratio 0.7 (1.0-1.8) L 12/11/17 13:20 - Physical Exam Vitals and I&O: Vital Signs Temp 97.2 F 12/12/17 04:00 Pulse 89 12/12/17 07:32 Resp 20 12/12/17 07:32 BP 115/64 12/12/17 04:00 Pulse Ox 94 12/12/17 07:32 Intake & Output 12/11/17 12/12/17 12/12/17 18:59 06:59 18:59 Intake Total 200 Output Total 0 Balance 200 Weight (lbs) 77.111 kg Intake: Oral 200 Output: Stool 0 Other: # Voids 3 # Bowel Movements 0 Active Medications: Current Medications Albuterol Sulfate (Albuterol 2.5mg/3ml Neb Ud) 2.5 mg HHN Q4HRT PRN PRN Reason: Shortness of Breath or Wheeze Stop: 02/09/18 13:17 Last Admin: 12/11/17 18:44 Dose: 2.5 mg Albuterol/Ipratropium (Duoneb Neb) 3 ml HHN [id number] COUNT INCLUDES THE [facility] Stop: 02/10/18 06:59 Last Admin: 12/12/17 07:31 Dose: 3 ml Budesonide (Pulmicort) 0.5 mg HHN BIDRT COUNT INCLUDES THE [facility] Stop: 02/10/18 06:59 Last Admin: 12/12/17 07:31 Dose: 0.5 mg Ceftriaxone Sodium 1 gm/ (Sodium Chloride) 50 mls @ 100 mls/hr IV Q24HR COUNT INCLUDES THE [facility] Stop: 02/09/18 12:29 Azithromycin 250 mg/ Sodium (Chloride) 250 mls @ 250 mls/hr IV Q24HR COUNT INCLUDES THE [facility] Stop: 02/09/18 14:14 Last Admin: 12/12/17 02:05 Dose: 250 mls/hr Insulin Aspart (Novolog Insulin Sliding Scale) 0 units SUBQ ACHS DARIANA PRN Reason: Protocol Stop: 02/09/18 16:29 Last Admin: 12/12/17 06:43 Dose: Not Given General: Alert, No acute distress HEENT: Atraumatic, PERRLA, EOMI Neck: Supple Cardiovascular: Regular rate, Normal S1, Normal S2 Lungs: Other (decreased breath sounds) Abdomen: Bowel sounds, Soft, no Distended, no Obese Extremities: Edema (left lower extremity), no Clubbing, no Cyanosis Neurological: Normal gait, Normal speech Assessment/Plan - Assessment Assessment: acute bronchitis COPD/emphysema asthma HTN DM Anemia r/o GIB h/o malignant melanoma w/ lymph node dissection of the L groin left LE edema. - Plan Plan: see orders Doppler US venous to the Left LE
[2017-12-12 09:06] LABS: pH 7.43 (7.35-7.45)
[2017-12-12 09:07] LABS: ALLEN TEST YES
[2017-12-12 10:03] LABS: EOSINOPHILE ABSOLUTE 0.2 Th/cmm (0.1-0.4)
[2017-12-12 10:27] LABS: ALB/GLOB RATIO 0.8 (1.0-1.8); ALBUMIN 2.7 gm/dL (4.2-5.5); ALKALINE PHOSPHATASE 106 U/L (34-104); ANION GAP 4.9 (7.0-16.0); BILIRUBIN,DIRECT 0.14 mg/dL (0.0-0.2); BILIRUBIN,TOTAL 0.5 mg/dL (0.3-1.0); BUN - UREA NITROGEN 20 mg/dL (7-25); CALCIUM SERUM 8.9 mg/dL (8.6-10.3); CARBON DIOXIDE 38.5 mEq/L (21.0-31.0); CHLORIDE 99 mEq/L (98-107); CHOLESTEROL 141 mg/dL (<200); GLUCOSE 161 mg/dL (70-105); HDL -HIGH DENSITY LIPOPROTEIN 39 mg/dL (23-92); LDH = LACTIC DEHYDROGENASE 119 U/L (140-271); POTASSIUM SERUM 4.4 mEq/L (3.5-5.1); SGOT 12 U/L (13-39); SGPT/ALT 27 U/L (7-52); SODIUM SERUM 138 mEq/L (136-145); TOTAL PROTEIN,SERUM 5.9 gm/dL (6.0-8.3); TRIGLYCERIDES 101 mg/dL (<150)
[2017-12-12 10:38] LABS: LYMPHOCYTE ABSOLUTE 0.4 Th/cmm (1.5-3.0); MONOCYTE ABSOLUTE 0.4 Th/cmm (0.3-1.0)
[2017-12-12 10:39] LABS: RED BLOOD COUNT 2.49 Mil/cmm (3.80-5.80)
[2017-12-12 10:40] LABS: % NEUTROPHILS 89.2 % (40.0-80.0); MEAN CELL VOLUME 92.5 fl (80-99); MEAN CORPUSCULAR HEMOGLOBIN 30.2 pg (27.0-31.0); MEAN CORPUSCULAR HGB CONC 32.7 pg (28.0-36.0); MEAN PLATELET VOLUME 5.8 fl; PLATELET COUNT 248 Th/cmm (150-400); RED CELL DISTRIBUTION WIDTH 20.9 % (11.5-20.0)
[2017-12-12 10:41] LABS: % BASOPHILS 0.3 % (0.0-2.0); % EOSINOPHILS 2.1 % (0.0-5.0); % LYMPHOCYTES 3.9 % (20.0-50.0); % MONOCYTES 4.5 % (2.0-10.0); NEUTROPHILE ABSOLUTE 8.2 Th/cmm (1.8-8.0)
[2017-12-12 10:43] LABS: WHITE BLOOD COUNT 9.2 Th/cmm (4.8-10.8)
[2017-12-12 11:19] LABS: RBC RETICULOCYTE COUNT 2.49 Mil/cmm
[2017-12-12 11:26] LABS: ABSOLUTE RETICULOCYTE 67.2 Th/cmm; CORRECTED RETICULOCYTE COUNT 1.4 % (0.5-1.5); RETICULOCYTES % COUNTED 2.7 % (0.5-1.5)
--- NOTE | 2017-12-12 13:01 | GI Progress Note ---
Subjective - Review of Systems Service Date: 12/12/17 Subjective: EVENTS NOTED. POOR ORAL INTAKE. Objective - Results Result Diagrams: 12/12/17 09:30 12/12/17 09:30 Recent Labs: Laboratory Last Values WBC 9.2 Th/cmm (4.8-10.8) 12/12/17 09:30 RBC 2.49 Mil/cmm (3.80-5.80) L 12/12/17:30 Hgb 7.5 gm/dL (12-16) L* 12/12/17:30 Hct 23.0 % (40.0-54.0) L* 12/12/17:30 MCV 92.5 fl (80-99) 12/12/17:30 MCH 30.2 pg (27.0-31.0) 12/12/17:30 MCHC Differential 32.7 pg (28.0-36.0) 12/12/17:30 RDW 20.9 % (11.5-20.0) H 12/12/17:30 Plt Count 248 Th/cmm (150-400) D 12/12/17 09:30 MPV 5.8 fl 12/12/17 09:30 Neutrophils % 89.2 % (40.0-80.0) H 12/12/17:30 Band Neutrophils % 2 % (0-10) 12/11/17 13:20 Lymphocytes % 3.9 % (20.0-50.0) L 12/12/17:30 Monocytes % 4.5 % (2.0-10.0) 12/12/17 09:30 Eosinophils % 2.1 % (0.0-5.0) 12/12/17 09:30 Basophils % 0.3 % (0.0-2.0) 12/12/17 09:30 Neutrophils (Manual) 86 % (40-80) H 12/11/17 13:20 Lymphocytes 7 % (20-50) L 12/11/17 13:20 Monocytes 4 % (2-10) 12/11/17 13:20 Eosinophils 1 % (0-5) 12/11/17 13:20 Platelet Estimate ADEQUATE (NORMAL) 12/11/17 13:20 ESR > 105 mm/hr (0-20) H 12/12/17 09:30 Total Retics Counted 2.7 % (0.5-1.5) H 12/12/17 09:30 Absolute Retic 67.2 Th/cmm 12/12/17 09:30 Corrected Retic Count 1.4 % (0.5-1.5) 12/12/17 09:30 Specimen Source Arterial 12/12/17 08:55 Sample Site Left Radial 12/12/17 08:55 pH 7.43 (7.35-7.45) 12/12/17 08:55 pCO2 65.0 mmHg (35.0-45.0) H* 12/12/17 08:55 pO2 75.0 mmHg (80.0-100.0) L 12/12/17 08:55 HCO3 37.2 mEq/L (20.0-26.0) H 12/12/17 08:55 Base Excess 15.8 mEq/L (-3.0-3.0) H 12/12/17 08:55 O2 Saturation 95.0 % (92.0-100.0) 12/12/17 08:55 Lan Test YES 12/12/17 08:55 Vent Rate NA 12/12/17 08:55 Inspired O2 40 12/12/17 08:55 Tidal Volume NA 12/12/17 08:55 PEEP NA 12/12/17 08:55 Pressure (ins/psv/peep) NA 12/12/17 08:55 Critical Value E.MCGOWAN 12/12/17 08:55 Sodium 138 mEq/L (136-145) 12/12/17 09:30 Potassium 4.4 mEq/L (3.5-5.1) 12/12/17 09:30 Chloride 99 mEq/L (98-107) 12/12/17 09:30 Carbon Dioxide 38.5 mEq/L (21.0-31.0) H 12/12/17 09:30 Anion Gap 4.9 (7.0-16.0) L 12/12/17 09:30 BUN 20 mg/dL (7-25) 12/12/17 09:30 Creatinine 1.0 mg/dL (0.7-1.3) 12/12/17 09:30 Est GFR ( Amer) TNP 12/12/17 09:30 Est GFR (Non-Af Amer) TNP 12/12/17 09:30 BUN/Creatinine Ratio 20.0 12/12/17 09:30 Glucose 161 mg/dL (70-105) H 12/12/17 09:30 POC Glucose 140 MG/DL (70 - 105) H 12/12/17 12:15 Calcium 8.9 mg/dL (8.6-10.3) 12/12/17 09:30 Total Bilirubin 0.5 mg/dL (0.3-1.0) 12/12/17 09:30 Direct Bilirubin 0.14 mg/dL (0.0-0.2) 12/12/17 09:30 AST 12 U/L (13-39) L 12/12/17 09:30 ALT 27 U/L (7-52) 12/12/17 09:30 Alkaline Phosphatase 106 U/L (34-104) H 12/12/17 09:30 Lactate Dehydrogenase 119 U/L (140-271) L 12/12/17 09:30 B-Natriuretic Peptide 94.1 pg/mL (5.0-100.0) 12/12/17 09:30 Total Protein 5.9 gm/dL (6.0-8.3) L 12/12/17 09:30 Albumin 2.7 gm/dL (4.2-5.5) L 12/12/17 09:30 Globulin 3.2 gm/dL 12/12/17 09:30 Albumin/Globulin Ratio 0.8 (1.0-1.8) L 12/12/17 09:30 Triglycerides 101 mg/dL (<150) 12/12/17 09:30 Cholesterol 141 mg/dL (<200) 12/12/17 09:30 LDL Cholesterol Direct 82 mg/dL (75-193) 12/12/17 09:30 HDL Cholesterol 39 mg/dL (23-92) 12/12/17 09:30 TSH 1.64 uIU/ml (0.34-5.60) 12/12/17 09:30 - Physical Exam Vitals and I&O: Vital Signs Temp 97.4 F 12/12/17 08:00 Pulse 91 12/12/17 12:33 Resp 20 12/12/17 12:33 BP 140/87 12/12/17 08:00 Pulse Ox 94 12/12/17 12:33 Intake & Output 12/11/17 12/12/17 12/12/17 18:59 06:59 18:59 Intake Total 200 Output Total 0 Balance 200 Weight (lbs) 77.111 kg Intake: Oral 200 Output: Stool 0 Other: # Voids 3 # Bowel Movements 0 Active Medications: Current Medications Albuterol Sulfate (Albuterol 2.5mg/3ml Neb Ud) 2.5 mg HHN Q4HRT PRN PRN Reason: Shortness of Breath or Wheeze Stop: 02/09/18 13:17 Last Admin: 12/11/17 18:44 Dose: 2.5 mg Albuterol/Ipratropium (Duoneb Neb) 3 ml HHN [id number] [facility] Stop: 02/10/18 06:59 Last Admin: 12/12/17 12:32 Dose: 3 ml Budesonide (Pulmicort) 0.5 mg HHN BIDRT [facility] Stop: 02/10/18 06:59 Last Admin: 12/12/17 07:31 Dose: 0.5 mg Ceftriaxone Sodium 1 gm/ (Sodium Chloride) 50 mls @ 100 mls/hr IV Q24HR DARIANA Stop: 02/09/18 12:29 Azithromycin 250 mg/ Sodium (Chloride) 250 mls @ 250 mls/hr IV Q24HR [facility] Stop: 02/09/18 14:14 Last Admin: 12/12/17 02:05 Dose: 250 mls/hr Dextrose/Sodium Chloride (D5-0.9%Ns) 1,000 mls @ 50 mls/hr IV .Q20H ONE Stop: 12/13/17 04:31 Last Admin: 12/12/17 09:32 Dose: 50 mls/hr Insulin Aspart (Novolog Insulin Sliding Scale) 0 units SUBQ ACHS DARIANA PRN Reason: Protocol Stop: 02/09/18 16:29 Last Admin: 12/12/17 06:43 Dose: Not Given Mirtazapine (Remeron) 7.5 mg PO HS DARIANA PRN Reason: Protocol Stop: 02/10/18 20:59 General: Alert Neck: Supple Cardiovascular: Regular rate, Normal S1, Normal S2 Lungs: Other (decreased breath sounds) Abdomen: Bowel sounds, Soft, no Distended, no Obese Extremities: no Clubbing, no Cyanosis Assessment/Plan - Assessment Assessment: IMPRESSION: 1. ANEMIA - MULTIFACTORIAL; R/O SLOW GI BLOOD LOSS VS. ACD VS. HEME DISORDER, ETC. 2. HX DM AND HTN. 3. ANOREXIA. 4. DEPRESSION. RECS: 1. F/U ANEMIA LABS. 2. PATIENT OFFERED EGD AND COLONOSCOPY - HE REFUSES. 3. MONITOR HGB; TRANSFUSE PRN. 4. PER PSYCH.
[2017-12-12] MEDS: cefTRIAXone 1 GM in Sodium Chloride 0.9% 50 ML IV SCH (14:47)
[2017-12-12] MEDS ORDERED: Probiotic Screen MC PRN (15:21)
[2017-12-12] MEDS: Albuterol Nebulizer 2.5mg/3mL HHN PRN (22:24)
--- NOTE | 2017-12-13 00:11 | Consultation ---
DATE OF CONSULTATION: 12/12/2017 IDENTIFYING INFORMATION: The patient is a 77-year-old male. REASON FOR CONSULTATION: I was asked to see this patient because he was admitted first to [facility] for severe depression with thoughts of suicide; however, his oxygen level went down, so he was transferred to the medical floor. When I tried talk to the patient yesterday and today he was extremely uncooperative, did not want to participate in any meaningful conversation, though he admits to feeling depressed, but not give any further information. He wants to shoot himself and that the reason he was transferred to this facility. PAST PSYCHIATRIC HISTORY: Bipolar, depression. MEDICAL HISTORY: Congestive heart failure, chronic obstructive pulmonary disease, hypertension, diabetes mellitus type 2, asthma, malignant melanoma with resection of the groin. FAMILY AND SOCIAL HISTORY: The patient would not give me any information about his family. No substance abuse. MENTAL STATUS EXAMINATION: The patient was appropriately dressed, not well groomed. His mood is depressed. Affect is constricted. Thoughts are concrete. He would not participate in meaningful conversation and would not participate with me in a meaningful conversation, needing redirection. His insight and judgment is impaired. IMPRESSION: AXIS I: Major depression, recurrent, severe with possible psychosis. MEDICAL DIAGNOSES: Deferred to the medical doctor. His assets, he wants to get help. Negative poor coping skills. INITIAL TREATMENT PLAN: The patient will be started on Remeron. We will do group therapy, milieu therapy, and individual therapy. PLAN: The patient need to stay on 1:1 because of his intent to harm himself. The patient needs to go back to [facility] when medically cleared. Thank you very much for allowing me to participate in the care of this most interesting gentleman. JOB# [id number]
--- NOTE | 2017-12-13 02:22 | Progress Notes ---
DATE: 12/12/2017 PULMONARY/CRITICAL CARE PROGRESS NOTE PROBLEM LIST: 1. Acute respiratory failure on chronic. 2. Extensive pulmonary fibrosis. 3. 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 4. Cellulitis, question DVT of left lower extremity. 5. Psychosis. 6. History of previous cardiac arrhythmia. SUBJECTIVE: The patient is feeling okay, offers no specific new symptoms of coughing, wheezing or chest pain. He appears to be little bit more lucid today. PHYSICAL EXAMINATION: VITAL SIGNS: Temperature is 97.8, respirations 18, saturation 100% on 2 liters per minute. NECK: Veins not visualized. CHEST: Shows occasional rales with diminished air entry. HEART: Regular. ABDOMEN: Soft, nontender. EXTREMITIES: Left leg is swollen with some cellulitis in the left mid leg area. LABORATORY DATA: White count is 9.2, hemoglobin is 7.5. The patient's ABG shows compensated respiratory acidemia with pCO2 of 65, pO2 of 75 and the patient's electrolytes are okay with CO2 content of 38. Alkaline phosphatase is borderline, slightly elevated. ASSESSMENT: The patient has acute on chronic respiratory failure, possibly precipitated by multifactorial including underlying obstructive sleep apnea syndrome, psychosis, question like component with chronic obstructive pulmonary disease. PLANS AND SUGGESTIONS: We will go ahead and continue conservative inhalation treatment. Overall, prognosis is very poor. Consideration to discontinue amiodarone and substitute something else would be advised, as we do not know the amiodarone might have caused his problem and we will follow through other labs and chest x-ray, etc. in the next few days' time and go from there. JOB# [id number]
[2017-12-13] MEDS: INSULIN ASPART SLIDING SCALE 100 UNITS/ML UNIT SUBQ SCH ×4 (06:57→20:46)
[2017-12-13] MEDS: Budesonide 0.5 Mg/2 mL Ud HHN SCH ×2 (07:13→21:05)
[2017-12-13] MEDS: Albuterol/Ipratropium Neb 3 ML AERS HHN SCH ×4 (07:13→21:05)
[2017-12-13 08:08] LABS: T3 FREE 1.7 pg/mL (2.0-4.4); T4 FREE 1.23 ng/dL (0.82-1.77)
--- NOTE | 2017-12-13 08:47 | General Progress Note ---
Subjective - Review of Systems Service Date: 12/13/17 Subjective: Patient is more awake, more alert today, no acute distress. However patient is still very irritable this AM. He has decrease appetite. coughing up very little sputum Objective - Results Result Diagrams: 12/12/17 09:30 12/12/17 09:30 Recent Labs: Laboratory Last Values WBC 9.2 Th/cmm (4.8-10.8) 12/12/17 09:30 RBC 2.49 Mil/cmm (3.80-5.80) L 12/12/17 09:30 Hgb 7.5 gm/dL (12-16) L* 12/12/17 09:30 Hct 23.0 % (40.0-54.0) L* 12/12/17 09:30 MCV 92.5 fl (80-99) 12/12/17 09:30 MCH 30.2 pg (27.0-31.0) 12/12/17 09:30 MCHC Differential 32.7 pg (28.0-36.0) 12/12/17 09:30 RDW 20.9 % (11.5-20.0) H 12/12/17 09:30 Plt Count 248 Th/cmm (150-400) D 12/12/17 09:30 MPV 5.8 fl 12/12/17 09:30 Neutrophils % 89.2 % (40.0-80.0) H 12/12/17 09:30 Band Neutrophils % 2 % (0-10) 12/11/17 13:20 Lymphocytes % 3.9 % (20.0-50.0) L 12/12/17 09:30 Monocytes % 4.5 % (2.0-10.0) 12/12/17 09:30 Eosinophils % 2.1 % (0.0-5.0) 12/12/17 09:30 Basophils % 0.3 % (0.0-2.0) 12/12/17 09:30 Neutrophils (Manual) 86 % (40-80) H 12/11/17 13:20 Lymphocytes 7 % (20-50) L 12/11/17 13:20 Monocytes 4 % (2-10) 12/11/17 13:20 Eosinophils 1 % (0-5) 12/11/17 13:20 Platelet Estimate ADEQUATE (NORMAL) 12/11/17 13:20 ESR > 105 mm/hr (0-20) H 12/12/17 09:30 Total Retics Counted 2.7 % (0.5-1.5) H 12/12/17 09:30 Absolute Retic 67.2 Th/cmm 12/12/17 09:30 Corrected Retic Count 1.4 % (0.5-1.5) 12/12/17 09:30 Specimen Source Arterial 12/12/17 08:55 Sample Site Left Radial 12/12/17 08:55 pH 7.43 (7.35-7.45) 12/12/17 08:55 pCO2 65.0 mmHg (35.0-45.0) H* 12/12/17 08:55 pO2 75.0 mmHg (80.0-100.0) L 12/12/17 08:55 HCO3 37.2 mEq/L (20.0-26.0) H 12/12/17 08:55 Base Excess 15.8 mEq/L (-3.0-3.0) H 12/12/17 08:55 O2 Saturation 95.0 % (92.0-100.0) 12/12/17 08:55 Lan Test YES 12/12/17 08:55 Vent Rate NA 12/12/17 08:55 Inspired O2 40 12/12/17 08:55 Tidal Volume NA 12/12/17 08:55 PEEP NA 12/12/17 08:55 Pressure (ins/psv/peep) NA 12/12/17 08:55 Critical Value E.MCGOWAN 12/12/17 08:55 Sodium 138 mEq/L (136-145) 12/12/17 09:30 Potassium 4.4 mEq/L (3.5-5.1) 12/12/17 09:30 Chloride 99 mEq/L (98-107) 12/12/17 09:30 Carbon Dioxide 38.5 mEq/L (21.0-31.0) H 12/12/17 09:30 Anion Gap 4.9 (7.0-16.0) L 12/12/17 09:30 BUN 20 mg/dL (7-25) 12/12/17 09:30 Creatinine 1.0 mg/dL (0.7-1.3) 12/12/17 09:30 Est GFR ( Amer) TNP 12/12/17 09:30 Est GFR (Non-Af Amer) TNP 12/12/17 09:30 BUN/Creatinine Ratio 20.0 12/12/17 09:30 Glucose 161 mg/dL (70-105) H 12/12/17 09:30 POC Glucose 127 MG/DL (70 - 105) H 12/13/17 06:39 Calcium 8.9 mg/dL (8.6-10.3) 12/12/17:30 Total Bilirubin 0.5 mg/dL (0.3-1.0) 12/12/17:30 Direct Bilirubin 0.14 mg/dL (0.0-0.2) 12/12/17:30 AST 12 U/L (13-39) L 12/12/17:30 ALT 27 U/L (7-52) 12/12/17 09:30 Alkaline Phosphatase 106 U/L (34-104) H 12/12/17:30 Lactate Dehydrogenase 119 U/L (140-271) L 12/12/17 09:30 B-Natriuretic Peptide 94.1 pg/mL (5.0-100.0) 12/12/17:30 Total Protein 5.9 gm/dL (6.0-8.3) L 12/12/17:30 Albumin 2.7 gm/dL (4.2-5.5) L 12/12/17:30 Globulin 3.2 gm/dL 12/12/17:30 Albumin/Globulin Ratio 0.8 (1.0-1.8) L 12/12/17:30 Triglycerides 101 mg/dL (<150) 12/12/17:30 Cholesterol 141 mg/dL (<200) 12/12/17:30 LDL Cholesterol Direct 82 mg/dL (75-193) 12/12/17:30 HDL Cholesterol 39 mg/dL (23-92) 12/12/17:30 Free T4 1.23 ng/dL (0.82-1.77) 12/12/17:30 Free T3 1.7 pg/mL (2.0-4.4) L 12/12/17:30 TSH 1.64 uIU/ml (0.34-5.60) 12/12/17 09:30 - Physical Exam Vitals and I&O: Vital Signs Temp 98.0 F 12/13/17 04:00 Pulse 100 12/13/17 07:30 Resp 14 12/13/17 07:30 BP 120/56 12/13/17 04:00 Pulse Ox 90 12/13/17 07:30 Intake & Output 12/12/17 12/13/17 12/13/17 18:59 06:59 18:59 Intake Total 750 Output Total 0 Balance 750 Weight (lbs) 78.471 kg Intake: Oral 750 Output: Stool 0 Other: # Voids 3 # Bowel Movements 0 Active Medications: Current Medications Albuterol Sulfate (Albuterol 2.5mg/3ml Neb Ud) 2.5 mg HHN Q4HRT PRN PRN Reason: Shortness of Breath or Wheeze Stop: 02/09/18 13:17 Last Admin: 12/12/17 22:24 Dose: 2.5 mg Albuterol/Ipratropium (Duoneb Neb) 3 ml HHN [id number] [facility] Stop: 02/10/18 06:59 Last Admin: 12/13/17 07:13 Dose: 3 ml Budesonide (Pulmicort) 0.5 mg HHN BIDRT [facility] Stop: 02/10/18 06:59 Last Admin: 12/13/17 07:13 Dose: 0.5 mg Ceftriaxone Sodium 1 gm/ (Sodium Chloride) 50 mls @ 100 mls/hr IV Q24HR [facility] Stop: 02/09/18 12:29 Last Admin: 12/12/17 14:47 Dose: 100 mls/hr Azithromycin 250 mg/ Sodium (Chloride) 250 mls @ 250 mls/hr IV Q24HR [facility] Stop: 02/09/18 14:14 Last Admin: 12/12/17 14:47 Dose: 250 mls/hr Insulin Aspart (Novolog Insulin Sliding Scale) 0 units SUBQ ACHS [facility] PRN Reason: Protocol Stop: 02/09/18 16:29 Last Admin: 12/13/17 06:57 Dose: Not Given Lactobacillus Rhamnosus (Culturelle 15b) 1 each PO DAILY [facility] Stop: 02/11/18 08:59 Mirtazapine (Remeron) 7.5 mg PO HS [facility] PRN Reason: Protocol Stop: 02/10/18 20:59 Miscellaneous (Probiotic Screen) 1 ea PRN PRN PRN Reason: PROTOCOL Stop: 02/10/18 15:20 General: Alert HEENT: Atraumatic, PERRLA, EOMI Neck: Supple Cardiovascular: Regular rate, Normal S1, Normal S2 Lungs: Other (decreased breath sounds) Abdomen: Bowel sounds, Soft, no Distended, no Obese Extremities: no Clubbing, no Cyanosis Neurological: Normal gait, Normal speech Assessment/Plan - Assessment Assessment: chronic interstitial lung disease/pulmonary fibrosis CHF Cellulitis to Lower extremity psychosis dementia COPD/emphysema asthma HTN DM Chronic Anemia r/o GIB h/o malignant melanoma w/ lymph node dissection of the L groin left LE edema r/o DVT elevated ESR ?Systemic Lupus Erythematosis will check ACOSTA - Plan Plan: see orders Doppler US venous to the Left LE ACOSTA, uric acid, RA pending continue Azithromycin IV and rocephin IV
[2017-12-13] MEDS: Lactobacillus Rhamnosus GG 15 Billion CFU CAP.SPRINK PO SCH (08:52)
--- NOTE | 2017-12-13 09:05 | Diagnostic Imaging Report ---
Bilateral lower extremity DVT study HISTORY: Left calf swelling COMPARISON: None Technique: Longitudinal and transverse sonographic images of the bilateral lower extremity veins were obtained with doppler analysis. FINDINGS: Exam is limited as patient was uncooperative, refusing assessment of the left posterior tibial and peroneal vein. In addition, the right posterior tibial and peroneal veins were not visualized. The remaining veins of the bilateral lower extremity extending from the common femoral veins to popliteal vein demonstrate no evidence of DVT formation. IMPRESSION: Limited examination. The Right posterior tibial and peroneal veins were not visualized. Patient also refused assessment of the left posterior tibial and peroneal vein regions. There is no evidence of DVT within the remaining veins of the bilateral lower extremity venous system. If necessary short-term follow-up repeat exam the also be obtained.
[2017-12-13 09:50] LABS: HEMOGLOBIN 7.5 gm/dL (12-16)
--- NOTE | 2017-12-13 10:15 | GI Progress Note ---
Subjective - Review of Systems Service Date: 12/13/17 Subjective: EVENTS NOTED. POOR ORAL INTAKE. Objective - Results Result Diagrams: 12/12/17 09:30 12/12/17 09:30 Recent Labs: Laboratory Last Values WBC 9.2 Th/cmm (4.8-10.8) 12/12/17 09:30 RBC 2.49 Mil/cmm (3.80-5.80) L 12/12/17:30 Hgb 7.5 gm/dL (12-16) L* 12/12/17:30 Hct 23.0 % (40.0-54.0) L* 12/12/17:30 MCV 92.5 fl (80-99) 12/12/17:30 MCH 30.2 pg (27.0-31.0) 12/12/17:30 MCHC Differential 32.7 pg (28.0-36.0) 12/12/17:30 RDW 20.9 % (11.5-20.0) H 12/12/17:30 Plt Count 248 Th/cmm (150-400) D 12/12/17:30 MPV 5.8 fl 12/12/17 09:30 Neutrophils % 89.2 % (40.0-80.0) H 12/12/17:30 Band Neutrophils % 2 % (0-10) 12/11/17 13:20 Lymphocytes % 3.9 % (20.0-50.0) L 12/12/17:30 Monocytes % 4.5 % (2.0-10.0) 12/12/17 09:30 Eosinophils % 2.1 % (0.0-5.0) 12/12/17 09:30 Basophils % 0.3 % (0.0-2.0) 12/12/17 09:30 Neutrophils (Manual) 86 % (40-80) H 12/11/17 13:20 Lymphocytes 7 % (20-50) L 12/11/17 13:20 Monocytes 4 % (2-10) 12/11/17 13:20 Eosinophils 1 % (0-5) 12/11/17 13:20 Platelet Estimate ADEQUATE (NORMAL) 12/11/17 13:20 ESR > 105 mm/hr (0-20) H 12/12/17 09:30 Total Retics Counted 2.7 % (0.5-1.5) H 12/12/17 09:30 Absolute Retic 67.2 Th/cmm 12/12/17 09:30 Corrected Retic Count 1.4 % (0.5-1.5) 12/12/17 09:30 Specimen Source Arterial 12/12/17 08:55 Sample Site Left Radial 12/12/17 08:55 pH 7.43 (7.35-7.45) 12/12/17 08:55 pCO2 65.0 mmHg (35.0-45.0) H* 12/12/17 08:55 pO2 75.0 mmHg (80.0-100.0) L 12/12/17 08:55 HCO3 37.2 mEq/L (20.0-26.0) H 12/12/17 08:55 Base Excess 15.8 mEq/L (-3.0-3.0) H 12/12/17 08:55 O2 Saturation 95.0 % (92.0-100.0) 12/12/17 08:55 Lan Test YES 12/12/17 08:55 Vent Rate NA 12/12/17 08:55 Inspired O2 40 12/12/17 08:55 Tidal Volume NA 12/12/17 08:55 PEEP NA 12/12/17 08:55 Pressure (ins/psv/peep) NA 12/12/17 08:55 Critical Value E.MCGOWAN 12/12/17 08:55 Sodium 138 mEq/L (136-145) 12/12/17 09:30 Potassium 4.4 mEq/L (3.5-5.1) 12/12/17 09:30 Chloride 99 mEq/L (98-107) 12/12/17 09:30 Carbon Dioxide 38.5 mEq/L (21.0-31.0) H 12/12/17 09:30 Anion Gap 4.9 (7.0-16.0) L 12/12/17 09:30 BUN 20 mg/dL (7-25) 12/12/17 09:30 Creatinine 1.0 mg/dL (0.7-1.3) 12/12/17 09:30 Est GFR ( Amer) TNP 12/12/17 09:30 Est GFR (Non-Af Amer) TNP 12/12/17 09:30 BUN/Creatinine Ratio 20.0 12/12/17 09:30 Glucose 161 mg/dL (70-105) H 12/12/17 09:30 POC Glucose 127 MG/DL (70 - 105) H 12/13/17 06:39 Calcium 8.9 mg/dL (8.6-10.3) 12/12/17 09:30 Total Bilirubin 0.5 mg/dL (0.3-1.0) 12/12/17 09:30 Direct Bilirubin 0.14 mg/dL (0.0-0.2) 12/12/17 09:30 AST 12 U/L (13-39) L 12/12/17 09:30 ALT 27 U/L (7-52) 12/12/17 09:30 Alkaline Phosphatase 106 U/L (34-104) H 12/12/17 09:30 Lactate Dehydrogenase 119 U/L (140-271) L 12/12/17 09:30 B-Natriuretic Peptide 94.1 pg/mL (5.0-100.0) 12/12/17 09:30 Total Protein 5.9 gm/dL (6.0-8.3) L 12/12/17 09:30 Albumin 2.7 gm/dL (4.2-5.5) L 12/12/17:30 Globulin 3.2 gm/dL 12/12/17 09:30 Albumin/Globulin Ratio 0.8 (1.0-1.8) L 12/12/17 09:30 Triglycerides 101 mg/dL (<150) 12/12/17 09:30 Cholesterol 141 mg/dL (<200) 12/12/17 09:30 LDL Cholesterol Direct 82 mg/dL (75-193) 12/12/17 09:30 HDL Cholesterol 39 mg/dL (23-92) 12/12/17 09:30 Free T4 1.23 ng/dL (0.82-1.77) 12/12/17:30 Free T3 1.7 pg/mL (2.0-4.4) L 12/12/17 09:30 TSH 1.64 uIU/ml (0.34-5.60) 12/12/17 09:30 - Physical Exam Vitals and I&O: Vital Signs Temp 98.0 F 12/13/17 04:00 Pulse 100 12/13/17 07:30 Resp 14 12/13/17 07:30 BP 120/56 12/13/17 04:00 Pulse Ox 90 12/13/17 07:30 Intake & Output 12/12/17 12/13/17 12/13/17 18:59 06:59 18:59 Intake Total 750 Output Total 0 Balance 750 Weight (lbs) 78.471 kg Intake: Oral 750 Output: Stool 0 Other: # Voids 3 # Bowel Movements 0 Active Medications: Current Medications Albuterol Sulfate (Albuterol 2.5mg/3ml Neb Ud) 2.5 mg HHN Q4HRT PRN PRN Reason: Shortness of Breath or Wheeze Stop: 02/09/18 13:17 Last Admin: 12/12/17 22:24 Dose: 2.5 mg Albuterol/Ipratropium (Duoneb Neb) 3 ml HHN [id number] [facility] Stop: 02/10/18 06:59 Last Admin: 12/13/17 07:13 Dose: 3 ml Budesonide (Pulmicort) 0.5 mg HHN BIDRT [facility] Stop: 02/10/18 06:59 Last Admin: 12/13/17 07:13 Dose: 0.5 mg Ceftriaxone Sodium 1 gm/ (Sodium Chloride) 50 mls @ 100 mls/hr IV Q24HR [facility] Stop: 02/09/18 12:29 Last Admin: 12/12/17 14:47 Dose: 100 mls/hr Azithromycin 250 mg/ Sodium (Chloride) 250 mls @ 250 mls/hr IV Q24HR [facility] Stop: 02/09/18 14:14 Last Admin: 12/12/17 14:47 Dose: 250 mls/hr Insulin Aspart (Novolog Insulin Sliding Scale) 0 units SUBQ ACHS [facility] PRN Reason: Protocol Stop: 02/09/18 16:29 Last Admin: 12/13/17 06:57 Dose: Not Given Lactobacillus Rhamnosus (Culturelle 15b) 1 each PO DAILY [facility] Stop: 02/11/18 08:59 Last Admin: 12/13/17 08:52 Dose: 1 each Mirtazapine (Remeron) 7.5 mg PO HS [facility] PRN Reason: Protocol Stop: 02/10/18 20:59 Miscellaneous (Probiotic Screen) 1 ea MC PRN PRN PRN Reason: PROTOCOL Stop: 02/10/18 15:20 Mupirocin (Bactroban Oint) 1 appl NS BID [facility] Stop: 12/18/17 09:01 General: No acute distress Neck: Supple Cardiovascular: Regular rate Lungs: Clear to auscultation Abdomen: Bowel sounds, Soft, no Distended, no Obese Extremities: no Clubbing, no Cyanosis Neurological: Normal speech Assessment/Plan - Assessment Assessment: IMPRESSION: 1. ANEMIA - MULTIFACTORIAL; R/O SLOW GI BLOOD LOSS VS. ACD VS. HEME DISORDER, ETC. 2. HX DM AND HTN. 3. ANOREXIA. 4. DEPRESSION. RECS: 1. F/U ANEMIA LABS. 2. PATIENT OFFERED EGD AND COLONOSCOPY - HE REFUSES. 3. MONITOR HGB; TRANSFUSE PRN. 4. PER PSYCH.
[2017-12-13 12:11] LABS: FERRITIN 184 ng/mL (30-400); IRON LC 27 ug/dL (38-169); TIBC (LC) 206 ug/dL (250-450); UIBC 179 ug/dL (111-343)
[2017-12-13] MEDS: cefTRIAXone 1 GM in Sodium Chloride 0.9% 50 ML IV SCH (12:59)
[2017-12-13] MEDS: Azithromycin 250 MG in Sodium Chloride 0.9% 250 ML IV SCH (13:37)
--- NOTE | 2017-12-14 01:48 | Progress Notes ---
DATE: 12/13/2017 PROBLEM LIST: 1. Acute on chronic respiratory failure. 2. Extensive pulmonary fibrosis. 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 SYMPTOMS: Nil, feeling okay taking a breathing treatment, no respiratory distress, etc. PHYSICAL EXAMINATION: VITAL SIGNS: T-max 98.3, blood pressure 113/56 and saturation is 93 on 3 liters. NECK: Veins not visualized. CHEST: Shows diminished air entry. No other adventitious with occasional rhonchi. HEART: Regular. ABDOMEN: Soft, nontender. EXTREMITIES: Left leg still shows inflammatory changes, etc. LABORATORY DATA: The patient's so far no evidence of DVT in the system, which was reviewed. ASSESSMENT: The patient is clinically stable with persistent respiratory failure, psychosis, pulmonary fibrosis, question etiology not clear. PLANS AND SUGGESTIONS: We will continue supportive care, inhalation treatment, etc. We will recheck couple of things out on Friday and see how it is and go from there. JOB# [id number]
[2017-12-14] MEDS: INSULIN ASPART SLIDING SCALE 100 UNITS/ML UNIT SUBQ SCH ×4 (06:32→21:40)
[2017-12-14] MEDS: Budesonide 0.5 Mg/2 mL Ud HHN SCH ×2 (06:49→19:13)
[2017-12-14] MEDS: Albuterol/Ipratropium Neb 3 ML AERS HHN SCH ×4 (06:49→19:13)
[2017-12-14] MEDS: Lactobacillus Rhamnosus GG 15 Billion CFU CAP.SPRINK PO SCH (08:58)
--- NOTE | 2017-12-14 10:14 | General Progress Note ---
Subjective - Review of Systems Service Date: 12/14/17 Subjective: Patient is more awake, more alert today, no acute distress. However patient is still very irritable this AM. He has decrease appetite.more depressed. more weak. coughing up very little sputum. Objective - Results Result Diagrams: 12/12/17 09:30 12/12/17 09:30 Recent Labs: Laboratory Last Values WBC 9.2 Th/cmm (4.8-10.8) 12/12/17 09:30 RBC 2.49 Mil/cmm (3.80-5.80) L 12/12/17 09:30 Hgb 7.5 gm/dL (12-16) L* 12/12/17 09:30 Hct 23.0 % (40.0-54.0) L* 12/12/17 09:30 MCV 92.5 fl (80-99) 12/12/17 09:30 MCH 30.2 pg (27.0-31.0) 12/12/17 09:30 MCHC Differential 32.7 pg (28.0-36.0) 12/12/17 09:30 RDW 20.9 % (11.5-20.0) H 12/12/17 09:30 Plt Count 248 Th/cmm (150-400) D 12/12/17 09:30 MPV 5.8 fl 12/12/17 09:30 Neutrophils % 89.2 % (40.0-80.0) H 12/12/17 09:30 Band Neutrophils % 2 % (0-10) 12/11/17 13:20 Lymphocytes % 3.9 % (20.0-50.0) L 12/12/17 09:30 Monocytes % 4.5 % (2.0-10.0) 12/12/17 09:30 Eosinophils % 2.1 % (0.0-5.0) 12/12/17 09:30 Basophils % 0.3 % (0.0-2.0) 12/12/17 09:30 Neutrophils (Manual) 86 % (40-80) H 12/11/17 13:20 Lymphocytes 7 % (20-50) L 12/11/17 13:20 Monocytes 4 % (2-10) 12/11/17 13:20 Eosinophils 1 % (0-5) 12/11/17 13:20 Platelet Estimate ADEQUATE (NORMAL) 12/11/17 13:20 ESR > 105 mm/hr (0-20) H 12/12/17 09:30 Total Retics Counted 2.7 % (0.5-1.5) H 12/12/17 09:30 Absolute Retic 67.2 Th/cmm 12/12/17 09:30 Corrected Retic Count 1.4 % (0.5-1.5) 12/12/17 09:30 Specimen Source Arterial 12/12/17 08:55 Sample Site Left Radial 12/12/17 08:55 pH 7.43 (7.35-7.45) 12/12/17 08:55 pCO2 65.0 mmHg (35.0-45.0) H* 12/12/17 08:55 pO2 75.0 mmHg (80.0-100.0) L 12/12/17 08:55 HCO3 37.2 mEq/L (20.0-26.0) H 12/12/17 08:55 Base Excess 15.8 mEq/L (-3.0-3.0) H 12/12/17 08:55 O2 Saturation 95.0 % (92.0-100.0) 12/12/17 08:55 Lan Test YES 12/12/17 08:55 Vent Rate NA 12/12/17 08:55 Inspired O2 40 12/12/17 08:55 Tidal Volume NA 12/12/17 08:55 PEEP NA 12/12/17 08:55 Pressure (ins/psv/peep) NA 12/12/17 08:55 Critical Value E.MCGOWAN 12/12/17 08:55 Sodium 138 mEq/L (136-145) 12/12/17 09:30 Potassium 4.4 mEq/L (3.5-5.1) 12/12/17 09:30 Chloride 99 mEq/L (98-107) 12/12/17 09:30 Carbon Dioxide 38.5 mEq/L (21.0-31.0) H 12/12/17 09:30 Anion Gap 4.9 (7.0-16.0) L 12/12/17 09:30 BUN 20 mg/dL (7-25) 12/12/17 09:30 Creatinine 1.0 mg/dL (0.7-1.3) 12/12/17 09:30 Est GFR ( Amer) TNP 12/12/17 09:30 Est GFR (Non-Af Amer) TNP 12/12/17 09:30 BUN/Creatinine Ratio 20.0 12/12/17 09:30 Glucose 161 mg/dL (70-105) H 12/12/17 09:30 POC Glucose 92 MG/DL (70 - 105) 12/14/17 05:49 Calcium 8.9 mg/dL (8.6-10.3) 12/12/17 09:30 Iron 27 ug/dL (38-169) L 12/12/17:30 TIBC 206 ug/dL (250-450) L 12/12/17:30 Iron Saturation 13 % (15-55) L 12/12/17:30 Unsaturated IBC 179 ug/dL (111-343) 12/12/17:30 Ferritin 184 ng/mL (30-400) 12/12/17:30 Total Bilirubin 0.5 mg/dL (0.3-1.0) 12/12/17:30 Direct Bilirubin 0.14 mg/dL (0.0-0.2) 12/12/17 09:30 AST 12 U/L (13-39) L 12/12/17:30 ALT 27 U/L (7-52) 12/12/17 09:30 Alkaline Phosphatase 106 U/L (34-104) H 12/12/17 09:30 Lactate Dehydrogenase 119 U/L (140-271) L 12/12/17:30 B-Natriuretic Peptide 94.1 pg/mL (5.0-100.0) 12/12/17 09:30 Total Protein 5.9 gm/dL (6.0-8.3) L 12/12/17:30 Albumin 2.7 gm/dL (4.2-5.5) L 12/12/17:30 Globulin 3.2 gm/dL 12/12/17:30 Albumin/Globulin Ratio 0.8 (1.0-1.8) L 12/12/17 09:30 Triglycerides 101 mg/dL (<150) 12/12/17:30 Cholesterol 141 mg/dL (<200) 12/12/17:30 LDL Cholesterol Direct 82 mg/dL (75-193) 12/12/17 09:30 HDL Cholesterol 39 mg/dL (23-92) 12/12/17 09:30 Free T4 1.23 ng/dL (0.82-1.77) 12/12/17 09:30 Free T3 1.7 pg/mL (2.0-4.4) L 12/12/17 09:30 TSH 1.64 uIU/ml (0.34-5.60) 12/12/17 09:30 Anti-Ribosomal Ab <0.2 12/12/17 09:30 - Physical Exam Vitals and I&O: Vital Signs Temp 98.2 F 12/14/17 04:00 Pulse 106 12/14/17 07:05 Resp 14 12/14/17 07:05 BP 131/66 12/14/17 04:00 Pulse Ox 88 12/14/17 07:05 Intake & Output 12/13/17 12/14/17 12/14/17 18:59 06:59 18:59 Intake Total 550 240 Output Total 0 Balance 550 240 Weight (lbs) 78.471 kg 78.789 kg Intake: Intake, IV Amount 300 Azithromycin 250 mg In 250 Sodium Chloride 0.9% 250 ml @ 250 mls/hr IV Q24HR [facility] Rx#:[id number] cefTRIAXone 1 gm In 50 Sodium Chloride 0.9% 50 ml @ 100 mls/hr IV Q24HR [facility] Rx#:[id number] Oral 250 240 Output: Stool 0 Other: # Voids 2 3 # Bowel Movements 1 Stool Characteristics Soft Active Medications: Current Medications Albuterol Sulfate (Albuterol 2.5mg/3ml Neb Ud) 2.5 mg HHN Q4HRT PRN PRN Reason: Shortness of Breath or Wheeze Stop: 02/09/18 13:17 Last Admin: 12/12/17 22:24 Dose: 2.5 mg Albuterol/Ipratropium (Duoneb Neb) 3 ml HHN [id number] [facility] Stop: 02/10/18 06:59 Last Admin: 12/14/17 06:49 Dose: 3 ml Budesonide (Pulmicort) 0.5 mg HHN BIDRT [facility] Stop: 02/10/18 06:59 Last Admin: 12/14/17 06:49 Dose: 0.5 mg Ceftriaxone Sodium 1 gm/ (Sodium Chloride) 50 mls @ 100 mls/hr IV Q24HR [facility] Stop: 02/09/18 12:29 Last Infusion: 12/13/17 18:14 Dose: Infused Azithromycin 250 mg/ Sodium (Chloride) 250 mls @ 250 mls/hr IV Q24HR [facility] Stop: 02/09/18 14:14 Last Infusion: 12/13/17 18:14 Dose: Infused Insulin Aspart (Novolog Insulin Sliding Scale) 0 units SUBQ ACHS [facility] PRN Reason: Protocol Stop: 02/09/18 16:29 Last Admin: 12/14/17 06:32 Dose: Not Given Lactobacillus Rhamnosus (Culturelle 15b) 1 each PO DAILY [facility] Stop: 02/11/18 08:59 Last Admin: 12/14/17 08:58 Dose: 1 each Mirtazapine (Remeron) 7.5 mg PO HS [facility] PRN Reason: Protocol Stop: 02/10/18 20:59 Last Admin: 12/13/17 20:41 Dose: 7.5 mg Miscellaneous (Probiotic Screen) 1 ea PRN PRN PRN Reason: PROTOCOL Stop: 02/10/18 15:20 Mupirocin (Bactroban Oint) 1 appl NS BID [facility] Stop: 12/18/17 09:01 Last Admin: 12/14/17 08:59 Dose: 1 appl General: No acute distress HEENT: Atraumatic, PERRLA, EOMI Neck: Supple Cardiovascular: Regular rate Lungs: Clear to auscultation Abdomen: Bowel sounds, Soft, no Distended, no Obese Extremities: no Clubbing, no Cyanosis Neurological: Normal speech Assessment/Plan - Assessment Assessment: chronic interstitial lung disease/pulmonary fibrosis CHF Cellulitis to Lower extremity psychosis dementia COPD/emphysema asthma HTN DM Chronic Anemia r/o GIB h/o malignant melanoma w/ lymph node dissection of the L groin left LE edema r/o DVT elevated ESR ?Systemic Lupus Erythematosis will check ACOSTA malnutrition/dehydration ... poor PO intake. - Plan Plan: see orders Doppler US venous to the Left LE ACOSTA, uric acid, RA pending continue Azithromycin IV and rocephin IV
[2017-12-14] MEDS: D5-0.9%NS 1,000 ML IV SCH (10:16)
[2017-12-14 10:37] LABS: NEUTROPHILE ABSOLUTE 5.8 Th/cmm (1.8-8.0); RED BLOOD COUNT 2.43 Mil/cmm (3.80-5.80); RED CELL DISTRIBUTION WIDTH 20.3 % (11.5-20.0)
[2017-12-14 10:41] LABS: % BASOPHILS 0.4 % (0.0-2.0); % EOSINOPHILS 3.7 % (0.0-5.0); % LYMPHOCYTES 3.8 % (20.0-50.0); % MONOCYTES 8.2 % (2.0-10.0); % NEUTROPHILS 83.9 % (40.0-80.0); ALB/GLOB RATIO 0.8 (1.0-1.8); ALBUMIN 2.5 gm/dL (4.2-5.5); ALKALINE PHOSPHATASE 92 U/L (34-104); ANION GAP 3.9 (7.0-16.0); BILIRUBIN,TOTAL 0.4 mg/dL (0.3-1.0); BUN - UREA NITROGEN 16 mg/dL (7-25); CALCIUM SERUM 8.8 mg/dL (8.6-10.3); CARBON DIOXIDE 38.8 mEq/L (21.0-31.0); CHLORIDE 97 mEq/L (98-107); EOSINOPHILE ABSOLUTE 0.3 Th/cmm (0.1-0.4); GLUCOSE 146 mg/dL (70-105); LYMPHOCYTE ABSOLUTE 0.3 Th/cmm (1.5-3.0); MEAN CELL VOLUME 92.1 fl (80-99); MEAN CORPUSCULAR HEMOGLOBIN 30.2 pg (27.0-31.0); MEAN CORPUSCULAR HGB CONC 32.8 pg (28.0-36.0); MEAN PLATELET VOLUME 5.6 fl; MONOCYTE ABSOLUTE 0.6 Th/cmm (0.3-1.0); POTASSIUM SERUM 4.7 mEq/L (3.5-5.1); SGOT 13 U/L (13-39); SGPT/ALT 19 U/L (7-52); SODIUM SERUM 135 mEq/L (136-145); TOTAL PROTEIN,SERUM 5.7 gm/dL (6.0-8.3)
[2017-12-14 10:45] LABS: HEMATOCRIT 22.3 % (41.0-60); HEMOGLOBIN 7.3 gm/dL (12-16)
[2017-12-14 10:46] LABS: PLATELET COUNT 308 Th/cmm (150-400)
[2017-12-14] MEDS: cefTRIAXone 1 GM in Sodium Chloride 0.9% 50 ML IV SCH (11:56)
[2017-12-14] MEDS: Albuterol Nebulizer 2.5mg/3mL HHN PRN ×2 (13:21→22:40)
[2017-12-14] MEDS: Azithromycin 250 MG in Sodium Chloride 0.9% 250 ML IV SCH (14:20)
--- NOTE | 2017-12-15 00:10 | Progress Notes ---
DATE: 12/14/2017 PROBLEM LIST: 1. Acute on chronic respiratory failure, improving. 2. Extensive pulmonary fibrosis, etiology not clear. 3. CPAP dental emphysema and/or possibly associated smoking history. 4. Underlying psychosis. 5. Cellulitis on the left mid leg. SYMPTOMS: Nil, feeling okay, offers no specific new symptoms. PHYSICAL EXAMINATION: VITAL SIGNS: Temperature is 97.8, blood pressure 113/60, respirations in mid teens, saturation 99 on 2-3 liters per minute. NECK: Veins not visualized. CHEST: Shows diminished air entry with occasional rhonchi. HEART: Regular. ABDOMEN: Soft, nontender. LABORATORY DATA: The patient's white count is 7000, hemoglobin 7.3, and platelet is 308. Electrolytes are okay. ASSESSMENT: The patient is clinically stable, slightly improving. PLANS AND SUGGESTIONS: We will check, need for OT tomorrow including chest x-ray and see how it is and if is reasonably stable, unchanged can be discharged or go to [facility]. JOB# [id number]
[2017-12-15] MEDS: Albuterol Nebulizer 2.5mg/3mL HHN PRN ×2 (02:24→22:30)
[2017-12-15] MEDS: Albuterol/Ipratropium Neb 3 ML AERS HHN SCH ×4 (06:59→19:22)
[2017-12-15] MEDS: Budesonide 0.5 Mg/2 mL Ud HHN SCH ×2 (07:14→19:28)
[2017-12-15] MEDS: INSULIN ASPART SLIDING SCALE 100 UNITS/ML UNIT SUBQ SCH ×3 (07:15→16:41)
--- NOTE | 2017-12-15 08:37 | General Progress Note ---
Subjective - Review of Systems Service Date: 12/15/17 Subjective: Patient appears weak and fatigued. Patient appears pale in appearance. Hb 7.3 yesterday. consider transfusion of Packed RBC's today. flat effect, more depressed. more weak. coughing up very little today. Objective - Results Result Diagrams: 12/14/17 10:19 12/14/17 10:19 Recent Labs: Laboratory Last Values WBC 7.0 Th/cmm (4.8-10.8) D 12/14/17 10:19 RBC 2.43 Mil/cmm (3.80-5.80) L 12/14/17 10:19 Hgb 7.3 gm/dL (12-16) L* 12/14/17 10:19 Hct 22.3 % (41.0-60) L 12/14/17 10:19 MCV 92.1 fl (80-99) 12/14/17 10:19 MCH 30.2 pg (27.0-31.0) 12/14/17 10:19 MCHC Differential 32.8 pg (28.0-36.0) 12/14/17 10:19 RDW 20.3 % (11.5-20.0) H 12/14/17 10:19 Plt Count 308 Th/cmm (150-400) D 12/14/17 10:19 MPV 5.6 fl 12/14/17 10:19 Neutrophils % 83.9 % (40.0-80.0) H 12/14/17 10:19 Band Neutrophils % 2 % (0-10) 12/11/17 13:20 Lymphocytes % 3.8 % (20.0-50.0) L 12/14/17 10:19 Monocytes % 8.2 % (2.0-10.0) 12/14/17 10:19 Eosinophils % 3.7 % (0.0-5.0) 12/14/17 10:19 Basophils % 0.4 % (0.0-2.0) 12/14/17 10:19 Neutrophils (Manual) 86 % (40-80) H 12/11/17 13:20 Lymphocytes 7 % (20-50) L 12/11/17 13:20 Monocytes 4 % (2-10) 12/11/17 13:20 Eosinophils 1 % (0-5) 12/11/17 13:20 Platelet Estimate ADEQUATE (NORMAL) 12/11/17 13:20 ESR > 105 mm/hr (0-20) H 12/12/17 09:30 Total Retics Counted 2.7 % (0.5-1.5) H 12/12/17 09:30 Absolute Retic 67.2 Th/cmm 12/12/17 09:30 Corrected Retic Count 1.4 % (0.5-1.5) 12/12/17 09:30 Specimen Source Arterial 12/12/17 08:55 Sample Site Left Radial 12/12/17 08:55 pH 7.43 (7.35-7.45) 12/12/17 08:55 pCO2 65.0 mmHg (35.0-45.0) H* 12/12/17 08:55 pO2 75.0 mmHg (80.0-100.0) L 12/12/17 08:55 HCO3 37.2 mEq/L (20.0-26.0) H 12/12/17 08:55 Base Excess 15.8 mEq/L (-3.0-3.0) H 12/12/17 08:55 O2 Saturation 95.0 % (92.0-100.0) 12/12/17 08:55 Lan Test YES 12/12/17 08:55 Vent Rate NA 12/12/17 08:55 Inspired O2 40 12/12/17 08:55 Tidal Volume NA 12/12/17 08:55 PEEP NA 12/12/17 08:55 Pressure (ins/psv/peep) NA 12/12/17 08:55 Critical Value E.MCGOWAN 12/12/17 08:55 Sodium 135 mEq/L (136-145) L 12/14/17 10:19 Potassium 4.7 mEq/L (3.5-5.1) 12/14/17 10:19 Chloride 97 mEq/L (98-107) L 12/14/17 10:19 Carbon Dioxide 38.8 mEq/L (21.0-31.0) H 12/14/17 10:19 Anion Gap 3.9 (7.0-16.0) L 12/14/17 10:19 BUN 16 mg/dL (7-25) 12/14/17 10:19 Creatinine 1.0 mg/dL (0.7-1.3) 12/14/17 10:19 Est GFR ( Amer) TNP 12/14/17 10:19 Est GFR (Non-Af Amer) TNP 12/14/17 10:19 BUN/Creatinine Ratio 16.0 12/14/17 10:19 Glucose 146 mg/dL (70-105) H 12/14/17 10:19 POC Glucose 104 MG/DL (70 - 105) 12/15/17 05:29 Calcium 8.8 mg/dL (8.6-10.3) 12/14/17 10:19 Iron 27 ug/dL (38-169) L 12/12/17 09:30 TIBC 206 ug/dL (250-450) L 12/12/17 09:30 Iron Saturation 13 % (15-55) L 12/12/17 09:30 Unsaturated IBC 179 ug/dL (111-343) 12/12/17 09:30 Ferritin 184 ng/mL (30-400) 12/12/17 09:30 Total Bilirubin 0.4 mg/dL (0.3-1.0) 12/14/17 10:19 Direct Bilirubin 0.14 mg/dL (0.0-0.2) 12/12/17 09:30 AST 13 U/L (13-39) 12/14/17 10:19 ALT 19 U/L (7-52) 12/14/17 10:19 Alkaline Phosphatase 92 U/L (34-104) 12/14/17 10:19 Lactate Dehydrogenase 119 U/L (140-271) L 12/12/17 09:30 B-Natriuretic Peptide 94.1 pg/mL (5.0-100.0) 12/12/17 09:30 Total Protein 5.7 gm/dL (6.0-8.3) L 12/14/17 10:19 Albumin 2.5 gm/dL (4.2-5.5) L 12/14/17 10:19 Globulin 3.2 gm/dL 12/14/17 10:19 Albumin/Globulin Ratio 0.8 (1.0-1.8) L 12/14/17 10:19 Triglycerides 101 mg/dL (<150) 12/12/17 09:30 Cholesterol 141 mg/dL (<200) 12/12/17 09:30 LDL Cholesterol Direct 82 mg/dL (75-193) 12/12/17 09:30 HDL Cholesterol 39 mg/dL (23-92) 12/12/17 09:30 Free T4 1.23 ng/dL (0.82-1.77) 12/12/17 09:30 Free T3 1.7 pg/mL (2.0-4.4) L 12/12/17 09:30 TSH 1.64 uIU/ml (0.34-5.60) 12/12/17 09:30 Anti-Ribosomal Ab <0.2 12/12/17 09:30 - Physical Exam Vitals and I&O: Vital Signs Temp 98.0 F 12/15/17 04:00 Pulse 98 12/15/17 07:15 Resp 20 12/15/17 07:15 BP 104/62 12/15/17 04:00 Pulse Ox 95 12/15/17 07:15 Intake & Output 12/14/17 12/15/17 12/15/17 18:59 06:59 18:59 Intake Total 200 1060.833 Balance 200 1060.833 Weight (lbs) 78.562 kg 78.018 kg Intake: Intake, IV Amount 820.833 Azithromycin 250 mg In 250 Sodium Chloride 0.9% 250 ml @ 250 mls/hr IV Q24HR [facility] Rx#:[id number] D5-0.9%Ns 1,000 ml @ 50 520.833 mls/hr IV .Q20H [facility] Rx#: [id number] cefTRIAXone 1 gm In 50 Sodium Chloride 0.9% 50 ml @ 100 mls/hr IV Q24HR [facility] Rx#:[id number] Oral 200 240 Other: # Voids 2 # Bowel Movements 0 Active Medications: Current Medications Albuterol Sulfate (Albuterol 2.5mg/3ml Neb Ud) 2.5 mg HHN Q4HRT PRN PRN Reason: Shortness of Breath or Wheeze Stop: 02/09/18 13:17 Last Admin: 12/15/17 02:24 Dose: 2.5 mg Albuterol/Ipratropium (Duoneb Neb) 3 ml HHN [id number] [facility] Stop: 02/10/18 06:59 Last Admin: 12/15/17 06:59 Dose: 3 ml Budesonide (Pulmicort) 0.5 mg HHN BIDRT [facility] Stop: 02/10/18 06:59 Last Admin: 12/15/17 07:14 Dose: 0.5 mg Ceftriaxone Sodium 1 gm/ (Sodium Chloride) 50 mls @ 100 mls/hr IV Q24HR [facility] Stop: 02/09/18 12:29 Last Infusion: 12/14/17 20:40 Dose: Infused Azithromycin 250 mg/ Sodium (Chloride) 250 mls @ 250 mls/hr IV Q24HR [facility] Stop: 02/09/18 14:14 Last Infusion: 12/14/17 20:41 Dose: Infused Dextrose/Sodium Chloride (D5-0.9%Ns) 1,000 mls @ 50 mls/hr IV .Q20H [facility] Stop: 02/12/18 10:11 Last Infusion: 12/14/17 20:41 Dose: 50 mls/hr Insulin Aspart (Novolog Insulin Sliding Scale) 0 units SUBQ ACHS [facility] PRN Reason: Protocol Stop: 02/09/18 16:29 Last Admin: 12/14/17 21:40 Dose: Not Given Lactobacillus Rhamnosus (Culturelle 15b) 1 each PO DAILY [facility] Stop: 02/11/18 08:59 Last Admin: 12/14/17 08:58 Dose: 1 each Mirtazapine (Remeron) 7.5 mg PO HS [facility] PRN Reason: Protocol Stop: 02/10/18 20:59 Last Admin: 12/14/17 21:35 Dose: 7.5 mg Miscellaneous (Probiotic Screen) 1 ea MC PRN PRN PRN Reason: PROTOCOL Stop: 02/10/18 15:20 Mupirocin (Bactroban Oint) 1 appl NS BID [facility] Stop: 12/18/17 09:01 Last Admin: 12/14/17 17:34 Dose: Not Given General: No acute distress HEENT: Atraumatic, PERRLA, EOMI Neck: Supple Cardiovascular: Regular rate Lungs: Clear to auscultation Abdomen: Bowel sounds, Soft, no Distended, no Obese Extremities: no Clubbing, no Cyanosis Neurological: Normal speech Assessment/Plan - Assessment Assessment: chronic interstitial lung disease/pulmonary fibrosis CHF cellulitis to lower extremity psychosis dementia COPD/emphysema asthma HTN DM chronic anemia r/o GIB h/o malignant melanoma w/ lymph node dissection of the L groin left LE edema elevated ESR r/o SLE will check ACOSTA malnutrition/dehydration ... poor PO intake. - Plan Plan: see orders Doppler US venous to the Left LE ACOSTA, uric acid, RA pending continue Azithromycin IV and rocephin IV anemia ... will order type and screen 2 units and transfused 2 units packed RBC' s
[2017-12-15] MEDS: Lactobacillus Rhamnosus GG 15 Billion CFU CAP.SPRINK PO SCH (09:04)
--- NOTE | 2017-12-15 09:39 | Diagnostic Imaging Report ---
Portable chest x-ray HISTORY: Shortness of breath Compared to the prior exam of December 11, 2017, no change to severe diffuse bilateral interstitial lung changes along the pleural thickening in the left apical area. Findings suggest a chronic etiology. IMPRESSION: 1. No change from December 11, 2017 as noted above
[2017-12-15 13:17] LABS: BASOPHILE ABSOLUTE 0.1 Th/cumm (0-0.2); EOSINOPHILE ABSOLUTE 0.2 Th/cmm (0.1-0.4); LYMPHOCYTE ABSOLUTE 0.4 Th/cmm (1.5-3.0); MEAN CELL VOLUME 92.5 fl (80-99); MEAN CORPUSCULAR HGB CONC 32.4 pg (28.0-36.0); MEAN PLATELET VOLUME 5.6 fl; MONOCYTE ABSOLUTE 0.6 Th/cmm (0.3-1.0); PLATELET COUNT 286 Th/cmm (150-400); RED BLOOD COUNT 2.35 Mil/cmm (3.80-5.80); RED CELL DISTRIBUTION WIDTH 19.9 % (11.5-20.0); WHITE BLOOD COUNT 6.3 Th/cmm (4.8-10.8)
[2017-12-15 13:27] LABS: HEMATOCRIT 21.8 % (41.0-60)
[2017-12-15 13:31] LABS: HEMOGLOBIN 7.1 gm/dL (12-16)
[2017-12-15 14:11] LABS: BAND NEUTROPHILE 2 % (0-10); EOSINOPHIL 3 % (0-5); LYMPHOCYTE 7 % (20-50); MONOCYTE 6 % (2-10); NEUTROPHILS 82 % (40-80)
[2017-12-15 14:12] LABS: BASOPHIL 0 % (0-3)
[2017-12-15 14:13] LABS: TOTAL CELLS COUNTED 100
[2017-12-15 18:13] LABS: ANTI-NUCLEAR AB SCREEN Negative
[2017-12-15] MEDS: Azithromycin 250 MG in Sodium Chloride 0.9% 250 ML IV SCH (20:55)
[2017-12-16] MEDS: INSULIN ASPART SLIDING SCALE 100 UNITS/ML UNIT SUBQ SCH ×5 (00:02→20:57)
--- NOTE | 2017-12-16 00:15 | Progress Notes ---
DATE: 12/15/2017 SUBJECTIVE: Case discussed with staff of the patient, reviewed records. The patient has been weak, fatigued, pale with low hemoglobin and low oxygen. He had a blood transfusion. He continues to be depressed with cough. He continues to be unpredictable and impulsive. He did express suicidal ideation. He is on one-to-one and I did initiate Remeron on him with no side effects. The patient needs to stay on one-to-one. The patient needs to go to [facility] when medically cleared if he continues to be depressed and suicidal and so far he is not participating in any meaningful conversation. Thank you very much for allowing me to participate in the care of this most interesting gentleman. [facility]# [id number]
--- NOTE | 2017-12-16 00:48 | Progress Notes ---
DATE: 12/15/2017 PROBLEM LIST: 1. Acute on chronic respiratory failure. 2. Hypoxemia. 3. Underlying extensive pulmonary fibrosis with chronic obstructive pulmonary disease. SYMPTOMS: Nil, feeling okay. Denied of any symptoms, though patient using high flow oxygenation at this particular time. PHYSICAL EXAMINATION: GENERAL: Not in acute distress. VITAL SIGNS: The patient's temperature is 98, respirations 22, pulse is 100. NECK: Veins not visualized. CHEST: Shows occasional rhonchi with diminished air entry. HEART: Regular. ABDOMEN: Soft, nontender. EXTREMITIES: Shows no peripheral edema. LABORATORY DATA: The patient's white count is 6.3, hemoglobin 7.1 and patient's chest x-ray exhibits no new changes. ASSESSMENT: The patient is clinically stable. PLANS AND SUGGESTIONS: We will discuss with RT, etc., decrease FIO2 to BiPAP, etc. and see how he does and go from there. JOB# [id number]
[2017-12-16] MEDS: Albuterol Nebulizer 2.5mg/3mL HHN PRN (02:30)
[2017-12-16 06:04] LABS: RED BLOOD COUNT 2.46 Mil/cmm (3.80-5.80)
[2017-12-16 06:08] LABS: MEAN CELL VOLUME 91.8 fl (80-99); MEAN CORPUSCULAR HEMOGLOBIN 29.9 pg (27.0-31.0); MEAN CORPUSCULAR HGB CONC 32.5 pg (28.0-36.0); MEAN PLATELET VOLUME 5.9 fl; RED CELL DISTRIBUTION WIDTH 19.9 % (11.5-20.0); WHITE BLOOD COUNT 6.3 Th/cmm (4.8-10.8)
[2017-12-16 06:11] LABS: FOLIC ACID 12.3 ng/mL (>3.0)
[2017-12-16 06:15] LABS: HEMATOCRIT 22.6 % (41.0-60); HEMOGLOBIN 7.4 gm/dL (12-16); MANUAL DIFF REQUIRED? YES; PLATELET COUNT 393 Th/cmm (150-400)
[2017-12-16 06:27] LABS: ALB/GLOB RATIO 0.8 (1.0-1.8); ALBUMIN 2.5 gm/dL (4.2-5.5); ALKALINE PHOSPHATASE 83 U/L (34-104); ANION GAP 4.5 (7.0-16.0); BILIRUBIN,TOTAL 0.4 mg/dL (0.3-1.0); BUN - UREA NITROGEN 15 mg/dL (7-25); CALCIUM SERUM 9.1 mg/dL (8.6-10.3); CARBON DIOXIDE 38.3 mEq/L (21.0-31.0); CHLORIDE 99 mEq/L (98-107); GLUCOSE 86 mg/dL (70-105); POTASSIUM SERUM 4.8 mEq/L (3.5-5.1); SGOT 12 U/L (13-39); SGPT/ALT 16 U/L (7-52); SODIUM SERUM 137 mEq/L (136-145); TOTAL PROTEIN,SERUM 5.8 gm/dL (6.0-8.3)
[2017-12-16 07:08] LABS: BAND NEUTROPHILE 2 % (0-10); BASOPHIL 1 % (0-3); EOSINOPHIL 8 % (0-5); HYPOCHROMIA 1+; LYMPHOCYTE 15 % (20-50); MONOCYTE 7 % (2-10); NEUTROPHILS 67 % (40-80); OVALOCYTES 1+; PLATELET ESTIMATE ADEQUATE (NORMAL); POLYCHROMASIA 1+; TEAR DROP CELLS 1+; TOTAL CELLS COUNTED 100
[2017-12-16] MEDS: Budesonide 0.5 Mg/2 mL Ud HHN SCH ×2 (07:56→19:03)
[2017-12-16] MEDS: Albuterol/Ipratropium Neb 3 ML AERS HHN SCH ×4 (07:56→19:03)
--- NOTE | 2017-12-16 08:17 | General Progress Note ---
Subjective - Review of Systems Service Date: 12/16/17 Subjective: Patient appears weak and fatigued. Patient appears pale in appearance. Hb 7.1 yesterday. consider transfusion of Packed RBC's today. flat effect, more depressed. more weak. coughing up very little today. Patient to have PICC line insertion today for transfusion. Patient RA factor elevated. Objective - Results Result Diagrams: 12/16/17 05:40 12/16/17 05:40 Recent Labs: Laboratory Last Values WBC 6.3 Th/cmm (4.8-10.8) 12/16/17 05:40 RBC 2.46 Mil/cmm (3.80-5.80) L 12/16/17 05:40 Hgb 7.4 gm/dL (12-16) L* 12/16/17 05:40 Hct 22.6 % (41.0-60) L 12/16/17 05:40 MCV 91.8 fl (80-99) 12/16/17 05:40 MCH 29.9 pg (27.0-31.0) 12/16/17 05:40 MCHC Differential 32.5 pg (28.0-36.0) 12/16/17 05:40 RDW 19.9 % (11.5-20.0) 12/16/17 05:40 Plt Count 393 Th/cmm (150-400) D 12/16/17 05:40 MPV 5.9 fl 12/16/17 05:40 Neutrophils % [employer]BLER 12/15/17 13:10 Band Neutrophils % 2 % (0-10) 12/16/17 05:40 Lymphocytes % [employer]ER 12/15/17 13:10 Monocytes % [employer]ER 12/15/17 13:10 Eosinophils % [employer]ER 12/15/17 13:10 Basophils % [employer] ASSEMBLER 12/15/17 13:10 Neutrophils (Manual) 67 % (40-80) 12/16/17 05:40 Lymphocytes 15 % (20-50) L 12/16/17 05:40 Monocytes 7 % (2-10) 12/16/17 05:40 Eosinophils 8 % (0-5) H 12/16/17 05:40 Basophils 1 % (0-3) 12/16/17 05:40 Hypochromia 1+ 12/16/17 05:40 Platelet Estimate ADEQUATE (NORMAL) 12/16/17 05:40 Polychromasia 1+ 12/16/17 05:40 Tear Drop Cells 1+ 12/16/17 05:40 Ovalocytes 1+ 12/16/17 05:40 ESR > 105 mm/hr (0-20) H 12/12/17 09:30 Total Retics Counted 2.7 % (0.5-1.5) H 12/12/17 09:30 Absolute Retic 67.2 Th/cmm 12/12/17 09:30 Corrected Retic Count 1.4 % (0.5-1.5) 12/12/17 09:30 Specimen Source Arterial 12/12/17 08:55 Sample Site Left Radial 12/12/17 08:55 pH 7.43 (7.35-7.45) 12/12/17 08:55 pCO2 65.0 mmHg (35.0-45.0) H* 12/12/17 08:55 pO2 75.0 mmHg (80.0-100.0) L 12/12/17 08:55 HCO3 37.2 mEq/L (20.0-26.0) H 12/12/17 08:55 Base Excess 15.8 mEq/L (-3.0-3.0) H 12/12/17 08:55 O2 Saturation 95.0 % (92.0-100.0) 12/12/17 08:55 Lan Test YES 12/12/17 08:55 Vent Rate NA 12/12/17 08:55 Inspired O2 40 12/12/17 08:55 Tidal Volume NA 12/12/17 08:55 PEEP NA 12/12/17 08:55 Pressure (ins/psv/peep) NA 12/12/17 08:55 Critical Value E.MCGOWAN 12/12/17 08:55 Sodium 137 mEq/L (136-145) 12/16/17 05:40 Potassium 4.8 mEq/L (3.5-5.1) 12/16/17 05:40 Chloride 99 mEq/L (98-107) 12/16/17 05:40 Carbon Dioxide 38.3 mEq/L (21.0-31.0) H 12/16/17 05:40 Anion Gap 4.5 (7.0-16.0) L 12/16/17 05:40 BUN 15 mg/dL (7-25) 12/16/17 05:40 Creatinine 1.0 mg/dL (0.7-1.3) 12/16/17 05:40 Est GFR ( Amer) TNP 12/16/17 05:40 Est GFR (Non-Af Amer) TNP 12/16/17 05:40 BUN/Creatinine Ratio 15.0 12/16/17 05:40 Glucose 86 mg/dL (70-105) 12/16/17 05:40 POC Glucose 90 MG/DL (70 - 105) 12/16/17 06:13 Uric Acid 4.4 mg/dL (4.4-7.6) 12/15/17 13:10 Calcium 9.1 mg/dL (8.6-10.3) 12/16/17 05:40 Iron 27 ug/dL (38-169) L 12/12/17 09:30 TIBC 206 ug/dL (250-450) L 12/12/17 09:30 Iron Saturation 13 % (15-55) L 12/12/17 09:30 Unsaturated IBC 179 ug/dL (111-343) 12/12/17 09:30 Ferritin 184 ng/mL (30-400) 12/12/17 09:30 Total Bilirubin 0.4 mg/dL (0.3-1.0) 12/16/17 05:40 Direct Bilirubin 0.14 mg/dL (0.0-0.2) 12/12/17 09:30 AST 12 U/L (13-39) L 12/16/17 05:40 ALT 16 U/L (7-52) 12/16/17 05:40 Alkaline Phosphatase 83 U/L (34-104) 12/16/17 05:40 Ammonia 38 umol/L (16-53) 12/15/17 13:10 Lactate Dehydrogenase 119 U/L (140-271) L 12/12/17 09:30 B-Natriuretic Peptide 61.9 pg/mL (5.0-100.0) 12/16/17 05:40 Total Protein 5.8 gm/dL (6.0-8.3) L 12/16/17 05:40 Albumin 2.5 gm/dL (4.2-5.5) L 12/16/17 05:40 Globulin 3.3 gm/dL 12/16/17 05:40 Albumin/Globulin Ratio 0.8 (1.0-1.8) L 12/16/17 05:40 Triglycerides 101 mg/dL (<150) 12/12/17 09:30 Cholesterol 141 mg/dL (<200) 12/12/17 09:30 LDL Cholesterol Direct 82 mg/dL (75-193) 12/12/17 09:30 HDL Cholesterol 39 mg/dL (23-92) 12/12/17 09:30 Vitamin B12 1546 pg/mL (232-1245) H 12/12/17 09:30 Folic Acid 12.3 ng/mL (>3.0) 12/12/17 09:30 Free T4 1.23 ng/dL (0.82-1.77) 12/12/17 09:30 Free T3 1.7 pg/mL (2.0-4.4) L 12/12/17 09:30 TSH 1.64 uIU/ml (0.34-5.60) 12/12/17 09:30 Rheumatoid Factor 16.1 IU/mL (0.0-13.9) H 12/15/17 13:10 ACOSTA Screen Negative 12/12/17 09:30 Anti-Ribosomal Ab <0.2 12/12/17 09:30 Blood Type O NEGATIVE 12/15/17 13:10 Antibody Screen NEGATIVE 12/15/17 13:10 Crossmatch See Detail 12/15/17 13:10 - Physical Exam Vitals and I&O: Vital Signs Temp 98 F 12/16/17 04:00 Pulse 105 12/16/17 08:03 Resp 18 12/16/17 08:03 BP 113/52 12/16/17 04:00 Pulse Ox 100 12/16/17 08:03 Intake & Output 12/15/17 12/16/17 12/16/17 18:59 06:59 18:59 Intake Total 479.167 120 Balance 479.167 120 Weight (lbs) 78.018 kg Intake: Intake, IV Amount 479.167 D5-0.9%Ns 1,000 ml @ 50 479.167 mls/hr IV .Q20H [facility] Rx#: [id number] Oral 120 Other: # Voids 2 # Bowel Movements 0 Active Medications: Current Medications Albuterol Sulfate (Albuterol 2.5mg/3ml Neb Ud) 2.5 mg HHN Q4HRT PRN PRN Reason: Shortness of Breath or Wheeze Stop: 02/09/18 13:17 Last Admin: 12/16/17 02:30 Dose: 2.5 mg Albuterol/Ipratropium (Duoneb Neb) 3 ml HHN [id number] [facility] Stop: 02/10/18 06:59 Last Admin: 12/16/17 07:56 Dose: 3 ml Budesonide (Pulmicort) 0.5 mg HHN BIDRT [facility] Stop: 02/10/18 06:59 Last Admin: 12/16/17 07:56 Dose: 0.5 mg Dextrose/Sodium Chloride (D5-0.9%Ns) 1,000 mls @ 50 mls/hr IV .Q20H [facility] Stop: 02/12/18 10:11 Last Infusion: 12/15/17 14:06 Dose: Infused Azithromycin 250 mg/ Sodium (Chloride) 250 mls @ 250 mls/hr IV Q24HR [facility] Stop: 02/14/18 00:00 Ceftriaxone Sodium 1 gm/ (Sodium Chloride) 50 mls @ 100 mls/hr IV Q24HR [facility] Stop: 02/14/18 12:29 Insulin Aspart (Novolog Insulin Sliding Scale) 0 units SUBQ ACHS [facility] PRN Reason: Protocol Stop: 02/09/18 16:29 Last Admin: 12/16/17 00:02 Dose: Not Given Lactobacillus Rhamnosus (Culturelle 15b) 1 each PO DAILY [facility] Stop: 02/11/18 08:59 Last Admin: 12/15/17 09:04 Dose: 1 each Mirtazapine (Remeron) 7.5 mg PO HS [facility] PRN Reason: Protocol Stop: 02/10/18 20:59 Last Admin: 12/15/17 21:27 Dose: 7.5 mg Miscellaneous (Probiotic Screen) 1 ea MC PRN PRN PRN Reason: PROTOCOL Stop: 02/10/18 15:20 Mupirocin (Bactroban Oint) 1 appl NS BID [facility] Stop: 12/18/17 09:01 Last Admin: 12/15/17 17:59 Dose: 1 appl General: No acute distress HEENT: Atraumatic, PERRLA, EOMI Neck: Supple Cardiovascular: Regular rate Lungs: Clear to auscultation Abdomen: Bowel sounds, Soft, no Distended, no Obese Extremities: no Clubbing, no Cyanosis Neurological: Normal speech Assessment/Plan - Assessment Assessment: chronic interstitial lung disease/pulmonary fibrosis CHF cellulitis to lower extremity psychosis dementia COPD/emphysema asthma HTN DM chronic anemia r/o GIB h/o malignant melanoma w/ lymph node dissection of the L groin left LE edema Elevated Rheimatoid factor elevated ESR r/o SLE will check ACOSTA malnutrition/dehydration ... poor PO intake. - Plan Plan: see orders Doppler US venous to the Left LE ACOSTA, uric acid, RA pending continue Azithromycin IV and rocephin IV anemia ... will order type and screen 2 units and transfused 2 units packed RBC' s start solumedrol 80mg IV q12
[2017-12-16] MEDS: Lactobacillus Rhamnosus GG 15 Billion CFU CAP.SPRINK PO SCH (08:25)
[2017-12-16] MEDS ORDERED: cefTRIAXone 1 GM in Sodium Chloride 0.9% 50 ML IV SCH (12:30)
[2017-12-16 14:40] LABS: ANCA MYELOPEROXIDASE SEE REF. LAB REPORT; ANTI-CHROMATIN AUTO AB SEE REF. LAB REPORT; ASCA IGG-ANCA SEE REF. LAB REPORT
[2017-12-16] MEDS: methylPREDNISolone SS 40 mg Vial IV SCH (20:44)
[2017-12-16] MEDS: Azithromycin 250 MG in Sodium Chloride 0.9% 250 ML IV SCH ×2 (20:45→23:29)
--- NOTE | 2017-12-16 21:11 | GI Progress Note ---
Subjective - Review of Systems Service Date: 12/16/17 Subjective: EVENTS NOTED. POOR ORAL INTAKE. MORE LETHARGIC TODAY. Objective - Results Result Diagrams: 12/16/17 05:40 12/16/17 05:40 Recent Labs: Laboratory Last Values WBC 6.3 Th/cmm (4.8-10.8) 12/16/17 05:40 RBC 2.46 Mil/cmm (3.80-5.80) L 12/16/17 05:40 Hgb 7.4 gm/dL (12-16) L* 12/16/17 05:40 Hct 22.6 % (41.0-60) L 12/16/17 05:40 MCV 91.8 fl (80-99) 12/16/17 05:40 MCH 29.9 pg (27.0-31.0) 12/16/17 05:40 MCHC Differential 32.5 pg (28.0-36.0) 12/16/17 05:40 RDW 19.9 % (11.5-20.0) 12/16/17 05:40 Plt Count 393 Th/cmm (150-400) D 12/16/17 05:40 MPV 5.9 fl 12/16/17 05:40 Neutrophils % [employer]IMAL [employer] E[employer]CEMENT OFFICER 12/15/17 13:10 Band Neutrophils % 2 % (0-10) 12/16/17 05:40 Lymphocytes % [employer]IMAL [employer] OFFICER 12/15/17 13:10 Monocytes % ANIMAL [employer]CEMENT OFFICER 12/15/17 13:10 Eosinophils % ANIMAL [employer]CEMENT OFFICER 12/15/17 13:10 Basophils % ANIMAL [employer] OFFICER 12/15/17 13:10 Neutrophils (Manual) 67 % (40-80) 12/16/17 05:40 Lymphocytes 15 % (20-50) L 12/16/17 05:40 Monocytes 7 % (2-10) 12/16/17 05:40 Eosinophils 8 % (0-5) H 12/16/17 05:40 Basophils 1 % (0-3) 12/16/17 05:40 Hypochromia 1+ 12/16/17 05:40 Platelet Estimate ADEQUATE (NORMAL) 12/16/17 05:40 Polychromasia 1+ 12/16/17 05:40 Tear Drop Cells 1+ 12/16/17 05:40 Ovalocytes 1+ 12/16/17 05:40 ESR > 105 mm/hr (0-20) H 12/12/17 09:30 Total Retics Counted 2.7 % (0.5-1.5) H 12/12/17 09:30 Absolute Retic 67.2 Th/cmm 12/12/17 09:30 Corrected Retic Count 1.4 % (0.5-1.5) 12/12/17 09:30 Specimen Source Arterial 12/12/17 08:55 Sample Site Left Radial 12/12/17 08:55 pH 7.43 (7.35-7.45) 12/12/17 08:55 pCO2 65.0 mmHg (35.0-45.0) H* 12/12/17 08:55 pO2 75.0 mmHg (80.0-100.0) L 12/12/17 08:55 HCO3 37.2 mEq/L (20.0-26.0) H 12/12/17 08:55 Base Excess 15.8 mEq/L (-3.0-3.0) H 12/12/17 08:55 O2 Saturation 95.0 % (92.0-100.0) 12/12/17 08:55 Lan Test YES 12/12/17 08:55 Vent Rate NA 12/12/17 08:55 Inspired O2 40 12/12/17 08:55 Tidal Volume NA 12/12/17 08:55 PEEP NA 12/12/17 08:55 Pressure (ins/psv/peep) NA 12/12/17 08:55 Critical Value E.MCGOWAN 12/12/17 08:55 Sodium 137 mEq/L (136-145) 12/16/17 05:40 Potassium 4.8 mEq/L (3.5-5.1) 12/16/17 05:40 Chloride 99 mEq/L (98-107) 12/16/17 05:40 Carbon Dioxide 38.3 mEq/L (21.0-31.0) H 12/16/17 05:40 Anion Gap 4.5 (7.0-16.0) L 12/16/17 05:40 BUN 15 mg/dL (7-25) 12/16/17 05:40 Creatinine 1.0 mg/dL (0.7-1.3) 12/16/17 05:40 Est GFR ( Amer) TNP 12/16/17 05:40 Est GFR (Non-Af Amer) TNP 12/16/17 05:40 BUN/Creatinine Ratio 15.0 12/16/17 05:40 Glucose 86 mg/dL (70-105) 12/16/17 05:40 POC Glucose 162 MG/DL (70 - 105) H 12/16/17 20:18 Uric Acid 4.4 mg/dL (4.4-7.6) 12/15/17 13:10 Calcium 9.1 mg/dL (8.6-10.3) 12/16/17 05:40 Iron 27 ug/dL (38-169) L 12/12/17 09:30 TIBC 206 ug/dL (250-450) L 12/12/17 09:30 Iron Saturation 13 % (15-55) L 12/12/17 09:30 Unsaturated IBC 179 ug/dL (111-343) 12/12/17 09:30 Ferritin 184 ng/mL (30-400) 12/12/17 09:30 Total Bilirubin 0.4 mg/dL (0.3-1.0) 12/16/17 05:40 Direct Bilirubin 0.14 mg/dL (0.0-0.2) 12/12/17 09:30 AST 12 U/L (13-39) L 12/16/17 05:40 ALT 16 U/L (7-52) 12/16/17 05:40 Alkaline Phosphatase 83 U/L (34-104) 12/16/17 05:40 Ammonia 38 umol/L (16-53) 12/15/17 13:10 Lactate Dehydrogenase 119 U/L (140-271) L 12/12/17 09:30 B-Natriuretic Peptide 61.9 pg/mL (5.0-100.0) 12/16/17 05:40 Total Protein 5.8 gm/dL (6.0-8.3) L 12/16/17 05:40 Albumin 2.5 gm/dL (4.2-5.5) L 12/16/17 05:40 Globulin 3.3 gm/dL 12/16/17 05:40 Albumin/Globulin Ratio 0.8 (1.0-1.8) L 12/16/17 05:40 Triglycerides 101 mg/dL (<150) 12/12/17 09:30 Cholesterol 141 mg/dL (<200) 12/12/17 09:30 LDL Cholesterol Direct 82 mg/dL (75-193) 12/12/17 09:30 HDL Cholesterol 39 mg/dL (23-92) 12/12/17 09:30 Vitamin B12 1546 pg/mL (232-1245) H 12/12/17 09:30 Folic Acid 12.3 ng/mL (>3.0) 12/12/17 09:30 Free T4 1.23 ng/dL (0.82-1.77) 12/12/17 09:30 Free T3 1.7 pg/mL (2.0-4.4) L 12/12/17 09:30 TSH 1.64 uIU/ml (0.34-5.60) 12/12/17 09:30 Rheumatoid Factor 16.1 IU/mL (0.0-13.9) H 12/15/17 13:10 ACOSTA Screen Negative 12/12/17 09:30 ANCA Screen SEE REF REPORT 12/12/17 09:30 Proteinase 3 (PR3) SEE REF. LAB REPORT 12/12/17 09:30 Anti-Myeloperoxidase SEE REF. LAB REPORT 12/12/17 09:30 Anti-Ribosomal Ab <0.2 12/12/17 09:30 Chromatin Antibody SEE REF. LAB REPORT 12/12/17 09:30 S.cerevisiae IgG Ab SEE REF. LAB REPORT 12/12/17 09:30 S.cerevisiae IgA Ab SEE REF. LAB REPORT 12/12/17 09:30 Blood Type O NEGATIVE 12/15/17 13:10 Antibody Screen NEGATIVE 12/15/17 13:10 Crossmatch See Detail 12/15/17 13:10 - Physical Exam Vitals and I&O: Vital Signs Temp 98.3 F 12/16/17 16:00 Pulse 100 12/16/17 16:00 Resp 20 12/16/17 18:25 BP 120/53 12/16/17 16:00 Pulse Ox 100 12/16/17 18:25 Intake & Output 12/16/17 12/16/17 12/17/17 06:59 18:59 06:59 Intake Total 120 650 50 Balance 120 650 50 Weight (lbs) 78.018 kg 78.018 kg Intake: Intake, IV Amount 50 [id number] 1 gm In 50 Sodium Chloride 0.9% 50 ml @ 100 mls/hr IV Q24HR PENDING SALE TO [facility] Rx#:[id number] Oral 120 400 Blood Product 250 Other: # Voids 2 2 # Bowel Movements 0 1 Active Medications: Current Medications Albuterol Sulfate (Albuterol 2.5mg/3ml Neb Ud) 2.5 mg HHN Q4HRT PRN PRN Reason: Shortness of Breath or Wheeze Stop: 02/09/18 13:17 Last Admin: 12/16/17 02:30 Dose: 2.5 mg Albuterol/Ipratropium (Duoneb Neb) 3 ml HHN [id number] PENDING SALE TO [facility] Stop: 02/10/18 06:59 Last Admin: 12/16/17 19:03 Dose: 3 ml Budesonide (Pulmicort) 0.5 mg HHN BIDRT PENDING SALE TO [facility] Stop: 02/10/18 06:59 Last Admin: 12/16/17 19:03 Dose: 0.5 mg Dextrose/Sodium Chloride (D5-0.9%Ns) 1,000 mls @ 50 mls/hr IV .Q20H PENDING SALE TO [facility] Stop: 02/12/18 10:11 Last Infusion: 12/15/17 14:06 Dose: Infused Azithromycin 250 mg/ Sodium (Chloride) 250 mls @ 250 mls/hr IV Q24HR PENDING SALE TO [facility] Stop: 02/14/18 00:00 Last Admin: 12/16/17 20:45 Dose: Not Given Ceftriaxone Sodium 1 gm/ (Sodium Chloride) 50 mls @ 100 mls/hr IV Q24HR PENDING SALE TO [facility] Stop: 02/14/18 12:29 Last Infusion: 12/16/17 19:34 Dose: Infused Insulin Aspart (Novolog Insulin Sliding Scale) 0 units SUBQ ACHS PENDING SALE TO [facility] PRN Reason: Protocol Stop: 02/09/18 16:29 Last Admin: 12/16/17 20:57 Dose: Not Given Lactobacillus Rhamnosus (Culturelle 15b) 1 each PO DAILY PENDING SALE TO [facility] Stop: 02/11/18 08:59 Last Admin: 12/16/17 08:25 Dose: 1 each Methylprednisolone Sodium Succinate (Solu-Medrol) 40 mg IV Q8HR PENDING SALE TO [facility] Stop: 12/20/17 13:01 Last Admin: 12/16/17 20:44 Dose: 40 mg Mirtazapine (Remeron) 7.5 mg PO HS DARIANA PRN Reason: Protocol Stop: 02/10/18 20:59 Last Admin: 12/16/17 20:44 Dose: 7.5 mg Miscellaneous (Probiotic Screen) 1 ea MC PRN PRN PRN Reason: PROTOCOL Stop: 02/10/18 15:20 Mupirocin (Bactroban Oint) 1 appl NS BID DARIANA Stop: 12/18/17 09:01 Last Admin: 12/16/17 16:37 Dose: 1 appl General: Other (LETHARGIC) Cardiovascular: Regular rate Lungs: Other (OCC RHONCHI) Abdomen: Bowel sounds, Soft, no Distended, no Obese Extremities: no Clubbing, no Cyanosis Assessment/Plan - Assessment Assessment: IMPRESSION: 1. ANEMIA - MULTIFACTORIAL; R/O SLOW GI BLOOD LOSS VS. ACD VS. HEME DISORDER, ETC. 2. HX DM AND HTN. 3. ANOREXIA. 4. DEPRESSION. 5. RESP INSUFFICIENCY WITH PULM FIBROSIS. 6. ELEVATED ESR, RF - R/O COLLAGEN VASCULAR DZ. RECS: 1. F/U [facility] LABS. 2. PATIENT OFFERED EGD AND COLONOSCOPY - HE REFUSES. 3. MONITOR HGB; TRANSFUSE PRN. 4. PER PSYCH. 5. ENCOURAGE ORAL INTAKE.
[2017-12-16 21:14] LABS: % BASOPHILS 0.8 % (0.0-2.0); % EOSINOPHILS 4.8 % (0.0-5.0); % LYMPHOCYTES 10.6 % (20.0-50.0); % MONOCYTES 13.9 % (2.0-10.0); % NEUTROPHILS 69.9 % (40.0-80.0); EOSINOPHILE ABSOLUTE 0.3 Th/cmm (0.1-0.4); LYMPHOCYTE ABSOLUTE 0.6 Th/cmm (1.5-3.0); MEAN CELL VOLUME 90.9 fl (80-99); MONOCYTE ABSOLUTE 0.8 Th/cmm (0.3-1.0); NEUTROPHILE ABSOLUTE 3.9 Th/cmm (1.8-8.0); PLATELET COUNT 290 Th/cmm (150-400); RED BLOOD COUNT 2.61 Mil/cmm (3.80-5.80); WHITE BLOOD COUNT 5.6 Th/cmm (4.8-10.8)
[2017-12-16 21:22] LABS: HEMATOCRIT 23.7 % (41.0-60); HEMOGLOBIN 7.8 gm/dL (12-16)
--- NOTE | 2017-12-16 21:32 | Progress Notes ---
DATE: 12/16/2017 Case was discussed with staff of the patient, reviewed records. The patient continues to be on oxygen and apparently when he eats his oxygen level goes down. He continues to be unable to participate in meaningful conversation. He did express suicidal ideation prior to admission and so far I have him on Remeron and 1:1 supervision because of suicidal ideation and plans wanting to shoot himself and the patient needs to go to [facility] when medically cleared, if his physical condition permits. Thank you very much for allowing me to participate in the care of this most interesting gentleman. JOB# [id number]
--- NOTE | 2017-12-16 23:15 | Progress Notes ---
DATE: 12/16/2017 PROBLEM LIST: 1. Acute on chronic respiratory failure. 2. Psychosis. 3. 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 SYMPTOMS: The patient is noncooperative. Does not let the use of BiPAP or draw blood gases requiring periodically high oxygen to keep his head region at adequate level. Periodically he is quiet, but at this time does not offer much of his symptomatology. PHYSICAL EXAMINATION: VITAL SIGNS: The patient is afebrile, heart rate is 100 range, respiration is 18, patient's saturation is 100% on Venturi mask 50%. NECK: Veins not visualized. CHEST: Shows diminished air entry with occasional rhonchi. HEART: Regular. ABDOMEN: Soft, nontender. EXTREMITIES: Shows no peripheral edema. LABORATORY DATA: The patient's white count is 6.3, hemoglobin 7.4 and the patient has eosinophil very high. ASSESSMENT: The patient is clinically stable, not much changed. PLANS AND SUGGESTIONS: We will go ahead and continue current treatment, try to get repeat blood gasses, etc, we will empirically give high dose of steroid, see how he does and go from there. JOB# [id number]
[2017-12-16] MEDS: D5-0.9%NS 1,000 ML IV SCH (23:31)
[2017-12-17 04:12] LABS: DIL RUSSELL VIPER VENOM TIME 57.2 sec (0.0-47.0); DRVVT CONFIRM 1.2 ratio (0.8-1.2); DRVVT MIX 47.2 sec (0.0-47.0)
[2017-12-17] MEDS: methylPREDNISolone SS 40 mg Vial IV SCH ×3 (05:37→20:12)
[2017-12-17 07:22] LABS: ALB/GLOB RATIO 0.7 (1.0-1.8); ALBUMIN 2.3 gm/dL (4.2-5.5); ALKALINE PHOSPHATASE 72 U/L (34-104); ANION GAP 4.7 (7.0-16.0); BILIRUBIN,TOTAL 0.4 mg/dL (0.3-1.0); BUN - UREA NITROGEN 19 mg/dL (7-25); CALCIUM SERUM 8.8 mg/dL (8.6-10.3); CARBON DIOXIDE 37.7 mEq/L (21.0-31.0); CHLORIDE 99 mEq/L (98-107); CREATININE - SERUM 0.9 mg/dL (0.7-1.3); GLUCOSE 209 mg/dL (70-105); POTASSIUM SERUM 5.4 mEq/L (3.5-5.1); SGOT 11 U/L (13-39); SGPT/ALT 15 U/L (7-52); SODIUM SERUM 136 mEq/L (136-145); TOTAL PROTEIN,SERUM 5.4 gm/dL (6.0-8.3)
[2017-12-17] MEDS: Albuterol/Ipratropium Neb 3 ML AERS HHN SCH ×4 (07:33→18:52)
[2017-12-17] MEDS: Budesonide 0.5 Mg/2 mL Ud HHN SCH ×2 (07:33→19:11)
[2017-12-17 07:34] LABS: MEAN CELL VOLUME 95.7 fl (80-99); MEAN CORPUSCULAR HEMOGLOBIN 31.6 pg (27.0-31.0); PLATELET COUNT 233 Th/cmm (150-400); RED CELL DISTRIBUTION WIDTH 18.9 % (11.5-20.0)
[2017-12-17 07:47] LABS: HEMOGLOBIN 7.6 gm/dL (12-16); WHITE BLOOD COUNT 2.9 Th/cmm (4.8-10.8)
[2017-12-17 07:48] LABS: MANUAL DIFF REQUIRED? YES
[2017-12-17 08:14] LABS: BAND NEUTROPHILE 7 % (0-10); LYMPHOCYTE 10 % (20-50); MONOCYTE 2 % (2-10); NEUTROPHILS 81 % (40-80); TOTAL CELLS COUNTED 100
--- NOTE | 2017-12-17 08:21 | General Progress Note ---
Subjective - Review of Systems Service Date: 12/17/17 Subjective: Patient appears weak and fatigued. Patient appears pale in appearance. Hb 7.6 today after transfusion of 1 unit of Packed RBC's yesterday. flat effect, more depressed. more weak. coughing up very little today. Will transfuse another unit today. Increased swelling to the left lower leg. Objective - Results Result Diagrams: 12/17/17 06:00 12/17/17 06:00 Recent Labs: Laboratory Last Values WBC 2.9 Th/cmm (4.8-10.8) L D 12/17/17 06:00 RBC 2.40 Mil/cmm (3.80-5.80) L 12/17/17 06:00 Hgb 7.6 gm/dL (12-16) L* 12/17/17 06:00 Hct 23.0 % (41.0-60) L 12/17/17 06:00 MCV 95.7 fl (80-99) 12/17/17 06:00 MCH 31.6 pg (27.0-31.0) H 12/17/17 06:00 MCHC Differential 33.0 pg (28.0-36.0) 12/17/17 06:00 RDW 18.9 % (11.5-20.0) 12/17/17 06:00 Plt Count 233 Th/cmm (150-400) 12/17/17 06:00 MPV 6.0 fl 12/17/17 06:00 Neutrophils % 69.9 % (40.0-80.0) 12/16/17 21:00 Band Neutrophils % 7 % (0-10) 12/17/17 06:00 Lymphocytes % 10.6 % (20.0-50.0) L 12/16/17 21:00 Monocytes % 13.9 % (2.0-10.0) H 12/16/17 21:00 Eosinophils % 4.8 % (0.0-5.0) 12/16/17 21:00 Basophils % 0.8 % (0.0-2.0) 12/16/17 21:00 Neutrophils (Manual) 81 % (40-80) H 12/17/17 06:00 Lymphocytes 10 % (20-50) L 12/17/17 06:00 Monocytes 2 % (2-10) 12/17/17 06:00 Eosinophils 8 % (0-5) H 12/16/17 05:40 Basophils 1 % (0-3) 12/16/17 05:40 Hypochromia 1+ 12/16/17 05:40 Platelet Estimate ADEQUATE (NORMAL) 12/16/17 05:40 Polychromasia 1+ 12/16/17 05:40 Tear Drop Cells 1+ 12/16/17 05:40 Ovalocytes 1+ 12/16/17 05:40 ESR > 105 mm/hr (0-20) H 12/12/17 09:30 Total Retics Counted 2.7 % (0.5-1.5) H 12/12/17 09:30 Absolute Retic 67.2 Th/cmm 12/12/17 09:30 Corrected Retic Count 1.4 % (0.5-1.5) 12/12/17 09:30 Lupus Anticoag aPTT 40.5 sec (0.0-51.9) 12/12/17 09:30 dRVVT Screen 57.2 sec (0.0-47.0) H 12/12/17 09:30 dRVVT Confirm Seconds 1.2 ratio (0.8-1.2) 12/12/17 09:30 dRVVT Mix 47.2 sec (0.0-47.0) H 12/12/17 09:30 Lupus Anticoag Interp Comment: 12/12/17 09:30 Specimen Source Arterial 12/12/17 08:55 Sample Site Left Radial 12/12/17 08:55 pH 7.43 (7.35-7.45) 12/12/17 08:55 pCO2 65.0 mmHg (35.0-45.0) H* 12/12/17 08:55 pO2 75.0 mmHg (80.0-100.0) L 12/12/17 08:55 HCO3 37.2 mEq/L (20.0-26.0) H 12/12/17 08:55 Base Excess 15.8 mEq/L (-3.0-3.0) H 12/12/17 08:55 O2 Saturation 95.0 % (92.0-100.0) 12/12/17 08:55 Lan Test YES 12/12/17 08:55 Vent Rate NA 12/12/17 08:55 Inspired O2 40 02/23/18 08:55 Tidal Volume NA 12/12/17 08:55 PEEP NA 12/12/17 08:55 Pressure (ins/psv/peep) NA 12/12/17 08:55 Critical Value E.MCGOWAN 12/12/17 08:55 Sodium 136 mEq/L (136-145) 12/17/17 06:00 Potassium 5.4 mEq/L (3.5-5.1) H 12/17/17 06:00 Chloride 99 mEq/L (98-107) 12/17/17 06:00 Carbon Dioxide 37.7 mEq/L (21.0-31.0) H 12/17/17 06:00 Anion Gap 4.7 (7.0-16.0) L 12/17/17 06:00 BUN 19 mg/dL (7-25) 12/17/17 06:00 Creatinine 0.9 mg/dL (0.7-1.3) 12/17/17 06:00 Est GFR ( Amer) TNP 12/17/17 06:00 Est GFR (Non-Af Amer) TNP 12/17/17 06:00 BUN/Creatinine Ratio 21.1 12/17/17 06:00 Glucose 209 mg/dL (70-105) H 12/17/17 06:00 POC Glucose 206 MG/DL (70 - 105) H 12/17/17 05:40 Uric Acid 4.4 mg/dL (4.4-7.6) 12/15/17 13:10 Calcium 8.8 mg/dL (8.6-10.3) 12/17/17 06:00 Iron 27 ug/dL (38-169) L 12/12/17 09:30 TIBC 206 ug/dL (250-450) L 12/12/17 09:30 Iron Saturation 13 % (15-55) L 12/12/17 09:30 Unsaturated IBC 179 ug/dL (111-343) 12/12/17 09:30 Ferritin 184 ng/mL (30-400) 12/12/17 09:30 Total Bilirubin 0.4 mg/dL (0.3-1.0) 12/17/17 06:00 Direct Bilirubin 0.14 mg/dL (0.0-0.2) 12/12/17 09:30 AST 11 U/L (13-39) L 12/17/17 06:00 ALT 15 U/L (7-52) 12/17/17 06:00 Alkaline Phosphatase 72 U/L (34-104) 12/17/17 06:00 Ammonia 38 umol/L (16-53) 12/15/17 13:10 Lactate Dehydrogenase 119 U/L (140-271) L 12/12/17 09:30 B-Natriuretic Peptide 57.1 pg/mL (5.0-100.0) 12/17/17 06:00 Total Protein 5.4 gm/dL (6.0-8.3) L 12/17/17 06:00 Albumin 2.3 gm/dL (4.2-5.5) L 12/17/17 06:00 Globulin 3.1 gm/dL 12/17/17 06:00 Albumin/Globulin Ratio 0.7 (1.0-1.8) L 12/17/17 06:00 Triglycerides 101 mg/dL (<150) 12/12/17 09:30 Cholesterol 141 mg/dL (<200) 12/12/17 09:30 LDL Cholesterol Direct 82 mg/dL (75-193) 12/12/17 09:30 HDL Cholesterol 39 mg/dL (23-92) 12/12/17 09:30 Vitamin B12 1546 pg/mL (232-1245) H 12/12/17 09:30 Folic Acid 12.3 ng/mL (>3.0) 12/12/17 09:30 Free T4 1.23 ng/dL (0.82-1.77) 12/12/17 09:30 Free T3 1.7 pg/mL (2.0-4.4) L 12/12/17 09:30 TSH 1.64 uIU/ml (0.34-5.60) 12/12/17 09:30 Rheumatoid Factor 16.1 IU/mL (0.0-13.9) H 12/15/17 13:10 ACOSTA Screen Negative 12/12/17 09:30 ANCA Screen SEE REF REPORT 12/12/17 09:30 Proteinase 3 (PR3) SEE REF. LAB REPORT 12/12/17 09:30 Anti-Myeloperoxidase SEE REF. LAB REPORT 12/12/17 09:30 Anti-Ribosomal Ab <0.2 12/12/17 09:30 Chromatin Antibody SEE REF. LAB REPORT 12/12/17 09:30 S.cerevisiae IgG Ab SEE REF. LAB REPORT 12/12/17 09:30 S.cerevisiae IgA Ab SEE REF. LAB REPORT 12/12/17 09:30 Blood Type O NEGATIVE 12/15/17 13:10 Antibody Screen NEGATIVE 12/15/17 13:10 Crossmatch See Detail 12/15/17 13:10 - Physical Exam Vitals and I&O: Vital Signs Temp 98.3 F 12/17/17 04:00 Pulse 79 12/17/17 07:54 Resp 18 12/17/17 07:54 BP 127/77 12/17/17 04:00 Pulse Ox 99 12/17/17 07:54 Intake & Output 12/16/17 12/17/17 12/17/17 18:59 06:59 18:59 Intake Total 650 50 25 Output Total 0 Balance 650 50 25 Weight (lbs) 78.018 kg 78.018 kg Intake: Intake, IV Amount 50 cefTRIAXone 1 gm In 50 Sodium Chloride 0.9% 50 ml @ 100 mls/hr IV Q24HR [facility] Rx#:[id number] Oral 400 25 Blood Product 250 Output: Urine/Stool Mix 0 Other: # Voids 2 3 # Bowel Movements 1 Active Medications: Current Medications Albuterol Sulfate (Albuterol 2.5mg/3ml Neb Ud) 2.5 mg HHN Q4HRT PRN PRN Reason: Shortness of Breath or Wheeze Stop: 02/09/18 13:17 Last Admin: 12/16/17 02:30 Dose: 2.5 mg Albuterol/Ipratropium (Duoneb Neb) 3 ml HHN [id number] [facility] Stop: 02/10/18 06:59 Last Admin: 12/17/17 07:33 Dose: 3 ml Budesonide (Pulmicort) 0.5 mg HHN BIDRT [facility] Stop: 02/10/18 06:59 Last Admin: 12/17/17 07:33 Dose: 0.5 mg Dextrose/Sodium Chloride (D5-0.9%Ns) 1,000 mls @ 50 mls/hr IV .Q20H [facility] Stop: 02/12/18 10:11 Last Admin: 12/16/17 23:31 Dose: 50 mls/hr Levofloxacin (Levaquin Pb) 500 mg in 100 mls @ 100 mls/hr IV Q24HR [facility] Stop: 02/15/18 08:59 Insulin Aspart (Novolog Insulin Sliding Scale) 0 units SUBQ ACHS [facility] PRN Reason: Protocol Stop: 02/09/18 16:29 Last Admin: 12/16/17 20:57 Dose: Not Given Lactobacillus Rhamnosus (Culturelle 15b) 1 each PO DAILY [facility] Stop: 02/11/18 08:59 Last Admin: 12/16/17 08:25 Dose: 1 each Methylprednisolone Sodium Succinate (Solu-Medrol) 40 mg IV Q8HR [facility] Stop: 12/20/17 13:01 Last Admin: 12/17/17 05:37 Dose: 40 mg Mirtazapine (Remeron) 7.5 mg PO HS [facility] PRN Reason: Protocol Stop: 02/10/18 20:59 Last Admin: 12/16/17 20:44 Dose: 7.5 mg Miscellaneous (Probiotic Screen) 1 ea MC PRN PRN PRN Reason: PROTOCOL Stop: 02/10/18 15:20 Mupirocin (Bactroban Oint) 1 appl NS BID [facility] Stop: 12/18/17 09:01 Last Admin: 12/16/17 16:37 Dose: 1 appl Pantoprazole Sodium (Protonix) 40 mg IVP DAILY [facility] Stop: 02/15/18 08:59 General: Other (LETHARGIC) HEENT: Atraumatic, PERRLA, EOMI Neck: Supple Cardiovascular: Regular rate Lungs: Other (OCC RHONCHI) Abdomen: Bowel sounds, Soft, no Distended, no Obese Extremities: no Clubbing, no Cyanosis Neurological: Normal speech Assessment/Plan - Assessment Assessment: chronic interstitial lung disease/pulmonary fibrosis CHF cellulitis to lower extremity psychosis dementia COPD/emphysema asthma HTN DM chronic anemia r/o GIB h/o malignant melanoma w/ lymph node dissection of the L groin left LE edema Elevated Rheimatoid factor elevated ESR r/o SLE will check ACOSTA malnutrition/dehydration ... poor PO intake. hyperkalemia - Plan Plan: see orders Doppler US venous to the Left LE ACOSTA, uric acid, RA pending continue Azithromycin IV and rocephin IV anemia ... will order type and screen 2 units and transfused 2 units packed RBC' s start solumedrol 80mg IV q12
[2017-12-17] MEDS: Lactobacillus Rhamnosus GG 15 Billion CFU CAP.SPRINK PO SCH (08:51)
[2017-12-17] MEDS: Levofloxacin 500mg/100mL 500 MG/100 ML BAG IV SCH (08:51)
[2017-12-17] MEDS: INSULIN ASPART SLIDING SCALE 100 UNITS/ML UNIT SUBQ SCH ×4 (08:53→20:13)
[2017-12-17 10:02] LABS: pH 7.34 (7.35-7.45)
--- NOTE | 2017-12-17 10:28 | Diagnostic Imaging Report ---
CHEST X-RAY: AP view INDICATION: Shortness of breath COMPARISON: 12/15/2017 FINDINGS: Diffuse bilateral pulmonary infiltrates are again noted with small effusions. Extensive chronic lung changes are noted with areas of scarring most pronounced along the left apex. Heart size is normal. IMPRESSION: Persistent diffuse infiltrates and small bilateral effusions.
--- NOTE | 2017-12-17 18:18 | GI Progress Note ---
Subjective - Review of Systems Service Date: 12/17/17 Subjective: EVENTS NOTED. NO ORAL INTAKE. MORE LETHARGIC TODAY. NOW ON BIPAP. Objective - Results Result Diagrams: 12/17/17 06:00 12/17/17 06:00 Recent Labs: Laboratory Last Values WBC 2.9 Th/cmm (4.8-10.8) L D 12/17/17 06:00 RBC 2.40 Mil/cmm (3.80-5.80) L 12/17/17 06:00 Hgb 7.6 gm/dL (12-16) L* 12/17/17 06:00 Hct 23.0 % (41.0-60) L 12/17/17 06:00 MCV 95.7 fl (80-99) 12/17/17 06:00 MCH 31.6 pg (27.0-31.0) H 12/17/17 06:00 MCHC Differential 33.0 pg (28.0-36.0) 12/17/17 06:00 RDW 18.9 % (11.5-20.0) 12/17/17 06:00 Plt Count 233 Th/cmm (150-400) 12/17/17 06:00 MPV 6.0 fl 12/17/17 06:00 Neutrophils % 69.9 % (40.0-80.0) 12/16/17 21:00 Band Neutrophils % 7 % (0-10) 12/17/17 06:00 Lymphocytes % 10.6 % (20.0-50.0) L 12/16/17 21:00 Monocytes % 13.9 % (2.0-10.0) H 12/16/17 21:00 Eosinophils % 4.8 % (0.0-5.0) 12/16/17 21:00 Basophils % 0.8 % (0.0-2.0) 12/16/17 21:00 Neutrophils (Manual) 81 % (40-80) H 12/17/17 06:00 Lymphocytes 10 % (20-50) L 12/17/17 06:00 Monocytes 2 % (2-10) 12/17/17 06:00 Eosinophils 8 % (0-5) H 12/16/17 05:40 Basophils 1 % (0-3) 12/16/17 05:40 Hypochromia 1+ 12/16/17 05:40 Platelet Estimate ADEQUATE (NORMAL) 12/16/17 05:40 Polychromasia 1+ 12/16/17 05:40 Tear Drop Cells 1+ 12/16/17 05:40 Ovalocytes 1+ 12/16/17 05:40 ESR > 105 mm/hr (0-20) H 12/12/17 09:30 Total Retics Counted 2.7 % (0.5-1.5) H 12/12/17 09:30 Absolute Retic 67.2 Th/cmm 12/12/17 09:30 Corrected Retic Count 1.4 % (0.5-1.5) 12/12/17 09:30 Lupus Anticoag aPTT 40.5 sec (0.0-51.9) 12/12/17 09:30 dRVVT Screen 57.2 sec (0.0-47.0) H 12/12/17 09:30 dRVVT Confirm Seconds 1.2 ratio (0.8-1.2) 12/12/17 09:30 dRVVT Mix 47.2 sec (0.0-47.0) H 12/12/17 09:30 Lupus Anticoag Interp Comment: 12/12/17 09:30 Specimen Source Arterial 12/17/17 09:55 Sample Site RB 12/17/17 09:55 pH 7.34 (7.35-7.45) L 12/17/17 09:55 pCO2 77.0 mmHg (35.0-45.0) H* 12/17/17 09:55 pO2 81.0 mmHg (80.0-100.0) 12/17/17 09:55 HCO3 34.6 mEq/L (20.0-26.0) H 12/17/17 09:55 Base Excess 12.5 mEq/L (-3.0-3.0) H 12/17/17 09:55 O2 Saturation 95.0 % (92.0-100.0) 12/17/17 09:55 Lan Test NA 12/17/17 09:55 Vent Rate NA 12/17/17 09:55 Inspired O2 50 12/17/17 09:55 Tidal Volume NA 12/17/17 09:55 PEEP NA 12/17/17 09:55 Pressure (ins/psv/peep) NA 12/17/17 09:55 Critical Value YOHANNES 12/17/17 09:55 Sodium 136 mEq/L (136-145) 12/17/17 06:00 Potassium 5.4 mEq/L (3.5-5.1) H 12/17/17 06:00 Chloride 99 mEq/L (98-107) 12/17/17 06:00 Carbon Dioxide 37.7 mEq/L (21.0-31.0) H 12/17/17 06:00 Anion Gap 4.7 (7.0-16.0) L 12/17/17 06:00 BUN 19 mg/dL (7-25) 12/17/17 06:00 Creatinine 0.9 mg/dL (0.7-1.3) 12/17/17 06:00 Est GFR ( Amer) TNP 12/17/17 06:00 Est GFR (Non-Af Amer) TNP 12/17/17 06:00 BUN/Creatinine Ratio 21.1 12/17/17 06:00 Glucose 209 mg/dL (70-105) H 12/17/17 06:00 POC Glucose 203 MG/DL (70 - 105) H 12/17/17 17:17 Uric Acid 4.4 mg/dL (4.4-7.6) 12/15/17 13:10 Calcium 8.8 mg/dL (8.6-10.3) 12/17/17 06:00 Iron 27 ug/dL (38-169) L 12/12/17 09:30 TIBC 206 ug/dL (250-450) L 12/12/17 09:30 Iron Saturation 13 % (15-55) L 12/12/17 09:30 Unsaturated IBC 179 ug/dL (111-343) 12/12/17 09:30 Ferritin 184 ng/mL (30-400) 12/12/17 09:30 Total Bilirubin 0.4 mg/dL (0.3-1.0) 12/17/17 06:00 Direct Bilirubin 0.14 mg/dL (0.0-0.2) 12/12/17 09:30 AST 11 U/L (13-39) L 12/17/17 06:00 ALT 15 U/L (7-52) 12/17/17 06:00 Alkaline Phosphatase 72 U/L (34-104) 12/17/17 06:00 Ammonia 38 umol/L (16-53) 12/15/17 13:10 Lactate Dehydrogenase 119 U/L (140-271) L 12/12/17 09:30 B-Natriuretic Peptide 57.1 pg/mL (5.0-100.0) 12/17/17 06:00 Total Protein 5.4 gm/dL (6.0-8.3) L 12/17/17 06:00 Albumin 2.3 gm/dL (4.2-5.5) L 12/17/17 06:00 Globulin 3.1 gm/dL 12/17/17 06:00 Albumin/Globulin Ratio 0.7 (1.0-1.8) L 12/17/17 06:00 Triglycerides 101 mg/dL (<150) 12/12/17 09:30 Cholesterol 141 mg/dL (<200) 12/12/17 09:30 LDL Cholesterol Direct 82 mg/dL (75-193) 12/12/17 09:30 HDL Cholesterol 39 mg/dL (23-92) 12/12/17 09:30 Vitamin B12 1546 pg/mL (232-1245) H 12/12/17 09:30 Folic Acid 12.3 ng/mL (>3.0) 12/12/17 09:30 Free T4 1.23 ng/dL (0.82-1.77) 12/12/17 09:30 Free T3 1.7 pg/mL (2.0-4.4) L 12/12/17 09:30 TSH 1.64 uIU/ml (0.34-5.60) 12/12/17 09:30 Rheumatoid Factor 16.1 IU/mL (0.0-13.9) H 12/15/17 13:10 ACOSTA Screen Negative 12/12/17 09:30 ANCA Screen SEE REF REPORT 12/12/17 09:30 Proteinase 3 (PR3) SEE REF. LAB REPORT 12/12/17 09:30 Anti-Myeloperoxidase SEE REF. LAB REPORT 12/12/17 09:30 Anti-Ribosomal Ab <0.2 12/12/17 09:30 Chromatin Antibody SEE REF. LAB REPORT 12/12/17 09:30 S.cerevisiae IgG Ab SEE REF. LAB REPORT 12/12/17 09:30 S.cerevisiae IgA Ab SEE REF. LAB REPORT 12/12/17 09:30 Blood Type O NEGATIVE 12/15/17 13:10 Antibody Screen NEGATIVE 12/15/17 13:10 Crossmatch See Detail 12/15/17 13:10 - Physical Exam Vitals and I&O: Vital Signs Temp 97.7 F 12/17/17 12:00 Pulse 68 12/17/17 12:00 Resp 17 12/17/17 18:04 BP 101/80 12/17/17 12:00 Pulse Ox 100 12/17/17 18:04 Intake & Output 12/16/17 12/17/17 12/17/17 18:59 06:59 18:59 Intake Total 650 50 25 Output Total 0 Balance 650 50 25 Weight (lbs) 78.018 kg 78.018 kg Intake: Intake, IV Amount 50 cefTRIAXone 1 gm In 50 Sodium Chloride 0.9% 50 ml @ 100 mls/hr IV Q24HR [facility] Rx#:[id number] Oral 400 25 Blood Product 250 Output: Urine/Stool Mix 0 Other: # Voids 2 3 # Bowel Movements 1 Stool Characteristics Soft Active Medications: Current Medications Albuterol Sulfate (Albuterol 2.5mg/3ml Neb Ud) 2.5 mg HHN Q4HRT PRN PRN Reason: Shortness of Breath or Wheeze Stop: 02/09/18 13:17 Last Admin: 12/16/17 02:30 Dose: 2.5 mg Albuterol/Ipratropium (Duoneb Neb) 3 ml HHN Q1LIRCF [facility] Stop: 02/10/18 06:59 Last Admin: 12/17/17 15:12 Dose: 3 ml Budesonide (Pulmicort) 0.5 mg HHN BIDRT [facility] Stop: 02/10/18 06:59 Last Admin: 12/17/17 07:33 Dose: 0.5 mg Dextrose/Sodium Chloride (D5-0.9%Ns) 1,000 mls @ 50 mls/hr IV .Q20H [facility] Stop: 02/12/18 10:11 Last Admin: 12/16/17 23:31 Dose: 50 mls/hr Levofloxacin (Levaquin Pb) 500 mg in 100 mls @ 100 mls/hr IV Q24HR [facility] Stop: 02/15/18 08:59 Last Admin: 12/17/17 08:51 Dose: 100 mls/hr Insulin Aspart (Novolog Insulin Sliding Scale) 0 units SUBQ ACHS [facility] PRN Reason: Protocol Stop: 02/09/18 16:29 Last Admin: 12/17/17 12:31 Dose: Not Given Methylprednisolone Sodium Succinate (Solu-Medrol) 40 mg IV Q8HR [facility] Stop: 12/20/17 13:01 Last Admin: 12/17/17 13:35 Dose: 40 mg Mirtazapine (Remeron) 7.5 mg PO HS [facility] PRN Reason: Protocol Stop: 02/10/18 20:59 Last Admin: 12/16/17 20:44 Dose: 7.5 mg Miscellaneous (Probiotic Screen) 1 ea PRN PRN PRN Reason: PROTOCOL Stop: 02/10/18 15:20 Miscellaneous (Ppn Per Pharmacy) 1 ea PRN PRN PRN Reason: PROTOCOL Stop: 02/15/18 14:20 Mupirocin (Bactroban Oint) 1 appl NS BID [facility] Stop: 12/18/17 09:01 Last Admin: 12/17/17 17:20 Dose: 1 appl Pantoprazole Sodium (Protonix) 40 mg IVP DAILY [facility] Stop: 02/15/18 08:59 Last Admin: 12/17/17 08:51 Dose: 40 mg General: Other (LETHARGIC) Cardiovascular: Regular rate Lungs: Other (OCC RHONCHI) Abdomen: Bowel sounds, Soft, no Distended, no Obese Extremities: no Clubbing, no Cyanosis Assessment/Plan - Assessment Assessment: IMPRESSION: 1. ANEMIA - MULTIFACTORIAL; R/O SLOW GI BLOOD LOSS VS. ACD VS. HEME DISORDER, ETC. 2. HX DM AND HTN. 3. ANOREXIA. 4. DEPRESSION. 5. RESP INSUFFICIENCY WITH PULM FIBROSIS - NOW ON BIPAP. 6. ELEVATED ESR, RF - R/O COLLAGEN VASCULAR DZ. 7. ALOC. RECS: 1. MONITOR ANEMIA LABS. NO OVERT GI BLEEDING. 2. PATIENT OFFERED EGD AND COLONOSCOPY - HE REFUSES. 3. MONITOR HGB; TRANSFUSE PRN. 4. PER PSYCH. 5. TPN/PPN STARTED.
--- NOTE | 2017-12-17 22:43 | Progress Notes ---
DATE: 12/17/2017 Case was discussed with staff of the patient, reviewed records. The patient continues to be on oxygen. Apparently, he was also using BiPAP with him. He continues to appear to be very weak. He is in bed. He was not participating in any conversation. He did mention that he will harm himself, shoot himself prior to coming here, but when I tried talk to him many times throughout his stay here, he was not participating in meaningful conversation. I have him on remeron 7.5 mg at bedtime. I am not sure we can take him off 1:1 at this point because of his suicidal ideation and plan. The patient had oxygen to surround him and I discussed that with the staff that he needs to stay in 1:1 and woken. He is on antibiotic as well. He is pale. He is anemic. He was transfused a packed red blood cells. Continues to be depressed. He was inserrted PICC line for transfusion yesterday and rH factor is elevated. Please keep him on 1:1 because of his situations as well as transfer to [facility], if appropriate. Thank you very much for allowing me to participate in the care of this most interesting gentleman. JOB# [id number]
[2017-12-18] MEDS: D5-0.9%NS 1,000 ML IV SCH (00:10)
[2017-12-18] MEDS: methylPREDNISolone SS 40 mg Vial IV SCH ×3 (06:00→21:45)
[2017-12-18] MEDS: Budesonide 0.5 Mg/2 mL Ud HHN SCH ×2 (07:33→19:09)
[2017-12-18] MEDS: Albuterol/Ipratropium Neb 3 ML AERS HHN SCH ×4 (07:33→18:55)
[2017-12-18 07:39] LABS: HEMATOCRIT 30.8 % (41.0-60); HEMOGLOBIN 10.1 gm/dL (12-16); MEAN CELL VOLUME 91.6 fl (80-99); MEAN CORPUSCULAR HEMOGLOBIN 30.1 pg (27.0-31.0); MEAN CORPUSCULAR HGB CONC 32.8 pg (28.0-36.0); MEAN PLATELET VOLUME 6.1 fl; PLATELET COUNT 254 Th/cmm (150-400); RED BLOOD COUNT 3.37 Mil/cmm (3.80-5.80); RED CELL DISTRIBUTION WIDTH 18.2 % (11.5-20.0); WHITE BLOOD COUNT 4.2 Th/cmm (4.8-10.8)
[2017-12-18 07:41] LABS: MANUAL DIFF REQUIRED? YES
[2017-12-18 07:57] LABS: ALB/GLOB RATIO 0.7 (1.0-1.8); ALBUMIN 2.5 gm/dL (4.2-5.5); ALKALINE PHOSPHATASE 83 U/L (34-104); ANION GAP 3.1 (7.0-16.0); BILIRUBIN,TOTAL 0.4 mg/dL (0.3-1.0); BUN - UREA NITROGEN 27 mg/dL (7-25); CARBON DIOXIDE 39.5 mEq/L (21.0-31.0); CHLORIDE 101 mEq/L (98-107); CHOLESTEROL 146 mg/dL (<200); CREATININE - SERUM 0.9 mg/dL (0.7-1.3); GLUCOSE 169 mg/dL (70-105); MAGNESIUM 2.1 mg/dL (1.9-2.7); PHOSPHOROUS 3.4 mg/dL (2.5-5.0); POTASSIUM SERUM 4.6 mEq/L (3.5-5.1); SGOT 10 U/L (13-39); SGPT/ALT 14 U/L (7-52); SODIUM SERUM 139 mEq/L (136-145); TOTAL PROTEIN,SERUM 5.9 gm/dL (6.0-8.3); TRIGLYCERIDES 129 mg/dL (<150)
[2017-12-18 08:03] LABS: ANISOCYTOSIS 1+; BAND NEUTROPHILE 4 % (0-10); LYMPHOCYTE 5 % (20-50); MONOCYTE 8 % (2-10); NEUTROPHILS 83 % (40-80); PLATELET ESTIMATE ADEQUATE (NORMAL); TOTAL CELLS COUNTED 100
--- NOTE | 2017-12-18 08:40 | General Progress Note ---
Subjective - Review of Systems Service Date: 12/18/17 Subjective: Patient appears weak and fatigued. Patient appears pale in appearance. Hb 7.6 today after transfusion of 1 unit of Packed RBC's yesterday. flat effect, more depressed. more weak. coughing up very little today. Will transfuse another unit today. Increased swelling to the left lower leg. Patient more depressed. Doesn't want to live Objective - Results Result Diagrams: 12/18/17 06:50 12/18/17 06:50 Recent Labs: Laboratory Last Values WBC 4.2 Th/cmm (4.8-10.8) L D 12/18/17 06:50 RBC 3.37 Mil/cmm (3.80-5.80) L 12/18/17 06:50 Hgb 10.1 gm/dL (12-16) L 12/18/17 06:50 Hct 30.8 % (41.0-60) L D 12/18/17 06:50 MCV 91.6 fl (80-99) 12/18/17 06:50 MCH 30.1 pg (27.0-31.0) 12/18/17 06:50 MCHC Differential 32.8 pg (28.0-36.0) 12/18/17 06:50 RDW 18.2 % (11.5-20.0) 12/18/17 06:50 Plt Count 254 Th/cmm (150-400) 12/18/17 06:50 MPV 6.1 fl 12/18/17 06:50 Neutrophils % 69.9 % (40.0-80.0) 12/16/17 21:00 Band Neutrophils % 4 % (0-10) 12/18/17 06:50 Lymphocytes % 10.6 % (20.0-50.0) L 12/16/17 21:00 Monocytes % 13.9 % (2.0-10.0) H 12/16/17 21:00 Eosinophils % 4.8 % (0.0-5.0) 12/16/17 21:00 Basophils % 0.8 % (0.0-2.0) 12/16/17 21:00 Neutrophils (Manual) 83 % (40-80) H 12/18/17 06:50 Lymphocytes 5 % (20-50) L 12/18/17 06:50 Monocytes 8 % (2-10) 12/18/17 06:50 Eosinophils 8 % (0-5) H 12/16/17 05:40 Basophils 1 % (0-3) 12/16/17 05:40 Hypochromia 1+ 12/16/17 05:40 Platelet Estimate ADEQUATE (NORMAL) 12/18/17 06:50 Polychromasia 1+ 12/16/17 05:40 Anisocytosis 1+ 12/18/17 06:50 Tear Drop Cells 1+ 12/16/17 05:40 Ovalocytes 1+ 12/16/17 05:40 ESR > 105 mm/hr (0-20) H 12/12/17 09:30 Total Retics Counted 2.7 % (0.5-1.5) H 12/12/17 09:30 Absolute Retic 67.2 Th/cmm 12/12/17 09:30 Corrected Retic Count 1.4 % (0.5-1.5) 12/12/17 09:30 Lupus Anticoag aPTT 40.5 sec (0.0-51.9) 12/12/17 09:30 dRVVT Screen 57.2 sec (0.0-47.0) H 12/12/17 09:30 dRVVT Confirm Seconds 1.2 ratio (0.8-1.2) 12/12/17 09:30 dRVVT Mix 47.2 sec (0.0-47.0) H 12/12/17 09:30 Lupus Anticoag Interp Comment: 12/12/17 09:30 Specimen Source Arterial 12/17/17 09:55 Sample Site RB 12/17/17 09:55 pH 7.34 (7.35-7.45) L 12/17/17 09:55 pCO2 77.0 mmHg (35.0-45.0) H* 12/17/17 09:55 pO2 81.0 mmHg (80.0-100.0) 12/17/17 09:55 HCO3 34.6 mEq/L (20.0-26.0) H 12/17/17 09:55 Base Excess 12.5 mEq/L (-3.0-3.0) H 12/17/17 09:55 O2 Saturation 95.0 % (92.0-100.0) 12/17/17 09:55 Lan Test NA 12/17/17 09:55 Vent Rate NA 12/17/17 09:55 Inspired O2 50 12/17/17 09:55 Tidal Volume NA 12/17/17 09:55 PEEP NA 12/17/17 09:55 Pressure (ins/psv/peep) NA 12/17/17 09:55 Critical Value E.MCGOWAN 12/17/17 09:55 Sodium 139 mEq/L (136-145) 12/18/17 06:50 Potassium 4.6 mEq/L (3.5-5.1) 12/18/17 06:50 Chloride 101 mEq/L (98-107) 12/18/17 06:50 Carbon Dioxide 39.5 mEq/L (21.0-31.0) H 12/18/17 06:50 Anion Gap 3.1 (7.0-16.0) L 12/18/17 06:50 BUN 27 mg/dL (7-25) H 12/18/17 06:50 Creatinine 0.9 mg/dL (0.7-1.3) 12/18/17 06:50 Est GFR ( Amer) TNP 12/18/17 06:50 Est GFR (Non-Af Amer) TNP 12/18/17 06:50 BUN/Creatinine Ratio 30.0 12/18/17 06:50 Glucose 169 mg/dL (70-105) H 12/18/17 06:50 POC Glucose 168 MG/DL (70 - 105) H 12/18/17 06:34 Uric Acid 4.4 mg/dL (4.4-7.6) 12/15/17 13:10 Calcium 9.0 mg/dL (8.6-10.3) 12/18/17 06:50 Phosphorus 3.4 mg/dL (2.5-5.0) 12/18/17 06:50 Magnesium 2.1 mg/dL (1.9-2.7) 12/18/17 06:50 Iron 27 ug/dL (38-169) L 12/12/17 09:30 TIBC 206 ug/dL (250-450) L 12/12/17 09:30 Iron Saturation 13 % (15-55) L 12/12/17 09:30 Unsaturated IBC 179 ug/dL (111-343) 12/12/17 09:30 Ferritin 184 ng/mL (30-400) 12/12/17 09:30 Total Bilirubin 0.4 mg/dL (0.3-1.0) 12/18/17 06:50 Direct Bilirubin 0.14 mg/dL (0.0-0.2) 12/12/17 09:30 AST 10 U/L (13-39) L 12/18/17 06:50 ALT 14 U/L (7-52) 12/18/17 06:50 Alkaline Phosphatase 83 U/L (34-104) 12/18/17 06:50 Ammonia 38 umol/L (16-53) 12/15/17 13:10 Lactate Dehydrogenase 119 U/L (140-271) L 12/12/17 09:30 B-Natriuretic Peptide 57.1 pg/mL (5.0-100.0) 12/17/17 06:00 Total Protein 5.9 gm/dL (6.0-8.3) L 12/18/17 06:50 Albumin 2.5 gm/dL (4.2-5.5) L 12/18/17 06:50 Globulin 3.4 gm/dL 12/18/17 06:50 Albumin/Globulin Ratio 0.7 (1.0-1.8) L 12/18/17 06:50 Triglycerides 129 mg/dL (<150) 12/18/17 06:50 Cholesterol 146 mg/dL (<200) 12/18/17 06:50 LDL Cholesterol Direct 82 mg/dL (75-193) 12/12/17 09:30 HDL Cholesterol 39 mg/dL (23-92) 12/12/17 09:30 Vitamin B12 1546 pg/mL (232-1245) H 12/12/17 09:30 Folic Acid 12.3 ng/mL (>3.0) 12/12/17 09:30 Free T4 1.23 ng/dL (0.82-1.77) 12/12/17 09:30 Free T3 1.7 pg/mL (2.0-4.4) L 12/12/17 09:30 TSH 1.64 uIU/ml (0.34-5.60) 12/12/17 09:30 Rheumatoid Factor 16.1 IU/mL (0.0-13.9) H 12/15/17 13:10 ACOSTA Screen Negative 12/12/17 09:30 ANCA Screen SEE REF REPORT 12/12/17 09:30 Proteinase 3 (PR3) SEE REF. LAB REPORT 12/12/17 09:30 Anti-Myeloperoxidase SEE REF. LAB REPORT 12/12/17 09:30 Anti-Ribosomal Ab <0.2 12/12/17 09:30 Chromatin Antibody SEE REF. LAB REPORT 12/12/17 09:30 S.cerevisiae IgG Ab SEE REF. LAB REPORT 12/12/17 09:30 S.cerevisiae IgA Ab SEE REF. LAB REPORT 12/12/17 09:30 Blood Type O NEGATIVE 12/15/17 13:10 Antibody Screen NEGATIVE 12/15/17 13:10 Crossmatch See Detail 12/15/17 13:10 - Physical Exam Vitals and I&O: Vital Signs Temp 97.6 F 12/18/17 04:00 Pulse 85 12/18/17 07:50 Resp 18 12/18/17 07:50 BP 133/71 12/18/17 04:00 Pulse Ox 98 12/18/17 07:50 Intake & Output 12/17/17 12/18/17 12/18/17 18:59 06:59 18:59 Intake Total 25 1000 0 Output Total 3 0 Balance 22 1000 0 Weight (lbs) 78.018 kg 78.471 kg Intake: Intake, IV Amount 1000 D5-0.9%Ns 1,000 ml @ 50 1000 mls/hr IV .Q20H [facility] Rx#: [id number] Oral 25 0 Output: Urine 3 Stool 0 Urine/Stool Mix 0 Other: # Voids 3 4 # Bowel Movements 0 0 Stool Characteristics Soft Active Medications: Current Medications Albuterol Sulfate (Albuterol 2.5mg/3ml Neb Ud) 2.5 mg HHN Q4HRT PRN PRN Reason: Shortness of Breath or Wheeze Stop: 02/09/18 13:17 Last Admin: 12/16/17 02:30 Dose: 2.5 mg Albuterol/Ipratropium (Duoneb Neb) 3 ml HHN [id number] [facility] Stop: 02/10/18 06:59 Last Admin: 12/18/17 07:33 Dose: 3 ml Budesonide (Pulmicort) 0.5 mg HHN BIDRT [facility] Stop: 02/10/18 06:59 Last Admin: 12/18/17 07:33 Dose: 0.5 mg Furosemide (Lasix) 20 mg IVP X1 ONE Stop: 12/18/17 08:34 Levofloxacin (Levaquin Pb) 500 mg in 100 mls @ 100 mls/hr IV Q24HR DARIANA Stop: 02/15/18 08:59 Last Admin: 12/17/17 08:51 Dose: 100 mls/hr Insulin Aspart (Novolog Insulin Sliding Scale) 0 units SUBQ ACHS DARIANA PRN Reason: Protocol Stop: 02/09/18 16:29 Last Admin: 12/17/17 20:13 Dose: 2 units Methylprednisolone Sodium Succinate (Solu-Medrol) 40 mg IV Q8HR DARIANA Stop: 12/20/17 13:01 Last Admin: 12/18/17 06:00 Dose: 40 mg Mirtazapine (Remeron) 7.5 mg PO HS DARIANA PRN Reason: Protocol Stop: 02/10/18 20:59 Last Admin: 12/17/17 20:12 Dose: 7.5 mg Miscellaneous (Probiotic Screen) 1 ea PRN PRN PRN Reason: PROTOCOL Stop: 02/10/18 15:20 Miscellaneous (Ppn Per Pharmacy) 1 [facility] PRN PRN PRN Reason: PROTOCOL Stop: 02/15/18 14:20 Mupirocin (Bactroban Oint) 1 appl NS BID DARIANA Stop: 12/18/17 09:01 Last Admin: 12/17/17 17:20 Dose: 1 appl Pantoprazole Sodium (Protonix) 40 mg IVP DAILY DARIANA Stop: 02/15/18 08:59 Last Admin: 12/17/17 08:51 Dose: 40 mg General: Other (LETHARGIC) HEENT: Atraumatic, PERRLA, EOMI Neck: Supple Cardiovascular: Regular rate Lungs: Other (OCC RHONCHI) Abdomen: Bowel sounds, Soft, no Distended, no Obese Extremities: no Clubbing, no Cyanosis Neurological: Normal speech - Procedures Procedures: Procedures Procedure Code Date BLOOD TRANSFUSION SERVICE 84640 12/11/17 TRANSFUSE NONAUT RED BLOOD CELLS IN PERIPH VEIN, [facility] 54491C4 12/11/17 Assessment/Plan - Assessment Assessment: moderate malnutrition chronic interstitial lung disease/pulmonary fibrosis CHF cellulitis to lower extremity psychosis dementia COPD/emphysema asthma HTN DM chronic anemia r/o GIB h/o malignant melanoma w/ lymph node dissection of the L groin left LE edema Elevated Rheimatoid factor elevated ESR r/o SLE will check ACOSTA malnutrition/dehydration ... poor PO intake. hyperkalemia - Plan Plan: see orders Doppler US venous to the Left LE ACOSTA, uric acid, RA pending continue Azithromycin IV and rocephin IV anemia ... will order type and screen 2 units and transfused 2 units packed RBC' s start solumedrol 40mg IV q8 Start on TPN. Hospice Evaluation Nutritional Asmnt/Malnutr-PDOC - Dietary Evaluation Malnutrition Findings (Please click <Entered> for more info): Nutritional Asmnt/Malnutrition Start: 12/17/17 16: 15 Text: Status: Complete Freq: Document 12/17/17 16:15 LCHENG (Rec: 12/17/17 16:27 LCHENG [email or web address]) Nutritional Asmnt/Malnutrition Patient General Information Nutritional Screening Moderate Risk Diagnosis pulmonary fibrosis, acute resp failure Pertinent Medical Hx/Surgical Hx HTN, asthma/COPD, depression, melanoma, DM Subjective Information Pt seen lying in bed on bipap mask. Per record PO intake 0- 50%. RN reported pt had poor PO intake d/t weakness and MD ordered PPN will start soon. Current Diet Order/ Nutrition Support CCHO-60gm Pertinent Medications D5-0.9ns, novolog, levaquin, remeron, protonix Pertinent Labs 12/17 Na 136, K 5.4, Cl 99, BUN 19, Cr 0.9, glucose 209, POC 206-221 Nutritional Hx/Data Height 1.78 m Height (Calculated Centimeters) 177.8 Current Weight (lbs) 78.018 kg Weight (Calculated Kilograms) 78.0 Weight (Calculated Grams) 35320.9 Body Mass Index (BMI) 24.7 GI Symptoms GI Symptoms None Last BM 12/16 Difficult in: None Skin Integrity/Comment: reddened to sacral coccyx buttocks, left leg, left arm Estimated Nutritional Goals BEE in Kcals: Using Current wt Calories/Kcals/Kg 25-30 Kcals Calculated 6437-2831 Protein: Using Current wt Protein g/k-1.2 Protein Calculated 78-94 Fluid: ml 1950-2340ml (1ml/kcal) Nutritional Problem 1. Problem Problem inadequate food intake Etiology weakness, poor appetite Signs/Symptoms: PO intake <50%, need for PPN Intervention/Recommendation Comments 1. Start PPN. Monitor intake from nutrition support. 2. Monitor wt, labs and skin integrity 3. F/U as high risk in 2-3 days, 3/2-3/3 Expected Outcomes/Goals Expected Outcomes/Goals 1. PO intake to meet at least 75% of nutritional needs from nutrition support. 2. Wt stability, skin to remain intact, labs to approach WNL.
[2017-12-18] MEDS: INSULIN ASPART SLIDING SCALE 100 UNITS/ML UNIT SUBQ SCH ×6 (08:47→21:43)
[2017-12-18] MEDS: Levofloxacin 500mg/100mL 500 MG/100 ML BAG IV SCH (08:52)
--- NOTE | 2017-12-18 11:01 | Progress Notes ---
DATE: 12/17/2017 PROBLEM LIST: 1. Acute on chronic respiratory failure. 2. Severe pulmonary fibrosis for cicatricial emphysema. 3. Underlying history of psychosis. SYMPTOMS: Nil. Currently on a BiPAP. No respiratory distress, still periodic, restless, congested and agitated. PHYSICAL EXAMINATION: VITAL SIGNS: T-max 97.6, blood pressure 127/64 and the patient's respiration 15, saturation 97 on BiPAP. NECK: Veins not visualized. CHEST: Shows diminished air entry with occasional rhonchi. HEART: Regular. ABDOMEN: Soft, nontender. LABORATORY DATA: The patient's white count is 2.9, hemoglobin 7.6. ABG shows partially compensated respiratory acidemia with a pH of 7.3, pCO2 of 77, pO2 is 81 and this is on 50% and the patient's chest x-ray shows bilateral diffuse infiltrate with questionable small effusion which does not look significant change. ASSESSMENT: The patient has acute on chronic respiratory failure, mild degree of tracheobronchitis, superimposed on severe pulmonary fibrosis, not significantly changed. PLANS AND SUGGESTIONS: We will go and continue current treatment, decrease FIO2 and continue rest of the treatment. Overall, prognosis is very much poor for a long time survival. JOB# [id number]
--- NOTE | 2017-12-18 13:22 | GI Progress Note ---
Subjective - Review of Systems Subjective: DENIES GI BLEEDING OR ABD PAIN EATING LUNCH Objective - Results Result Diagrams: 12/18/17 06:50 12/18/17 06:50 Recent Labs: Laboratory Last Values WBC 4.2 Th/cmm (4.8-10.8) L D 12/18/17 06:50 RBC 3.37 Mil/cmm (3.80-5.80) L 12/18/17 06:50 Hgb 10.1 gm/dL (12-16) L 12/18/17 06:50 Hct 30.8 % (41.0-60) L D 12/18/17 06:50 MCV 91.6 fl (80-99) 12/18/17 06:50 MCH 30.1 pg (27.0-31.0) 12/18/17 06:50 MCHC Differential 32.8 pg (28.0-36.0) 12/18/17 06:50 RDW 18.2 % (11.5-20.0) 12/18/17 06:50 Plt Count 254 Th/cmm (150-400) 12/18/17 06:50 MPV 6.1 fl 12/18/17 06:50 Neutrophils % 69.9 % (40.0-80.0) 12/16/17 21:00 Band Neutrophils % 4 % (0-10) 12/18/17 06:50 Lymphocytes % 10.6 % (20.0-50.0) L 12/16/17 21:00 Monocytes % 13.9 % (2.0-10.0) H 12/16/17 21:00 Eosinophils % 4.8 % (0.0-5.0) 12/16/17 21:00 Basophils % 0.8 % (0.0-2.0) 12/16/17 21:00 Neutrophils (Manual) 83 % (40-80) H 12/18/17 06:50 Lymphocytes 5 % (20-50) L 12/18/17 06:50 Monocytes 8 % (2-10) 12/18/17 06:50 Eosinophils 8 % (0-5) H 12/16/17 05:40 Basophils 1 % (0-3) 12/16/17 05:40 Hypochromia 1+ 12/16/17 05:40 Platelet Estimate ADEQUATE (NORMAL) 12/18/17 06:50 Polychromasia 1+ 12/16/17 05:40 Anisocytosis 1+ 12/18/17 06:50 Tear Drop Cells 1+ 12/16/17 05:40 Ovalocytes 1+ 12/16/17 05:40 ESR > 105 mm/hr (0-20) H 12/12/17 09:30 Total Retics Counted 2.7 % (0.5-1.5) H 12/12/17 09:30 Absolute Retic 67.2 Th/cmm 12/12/17 09:30 Corrected Retic Count 1.4 % (0.5-1.5) 12/12/17 09:30 Lupus Anticoag aPTT 40.5 sec (0.0-51.9) 12/12/17 09:30 dRVVT Screen 57.2 sec (0.0-47.0) H 12/12/17 09:30 dRVVT Confirm Seconds 1.2 ratio (0.8-1.2) 12/12/17 09:30 dRVVT Mix 47.2 sec (0.0-47.0) H 12/12/17 09:30 Lupus Anticoag Interp Comment: 12/12/17 09:30 Specimen Source Arterial 12/17/17 09:55 Sample Site RB 12/17/17 09:55 pH 7.34 (7.35-7.45) L 12/17/17 09:55 pCO2 77.0 mmHg (35.0-45.0) H* 12/17/17 09:55 pO2 81.0 mmHg (80.0-100.0) 12/17/17 09:55 HCO3 34.6 mEq/L (20.0-26.0) H 12/17/17 09:55 Base Excess 12.5 mEq/L (-3.0-3.0) H 12/17/17 09:55 O2 Saturation 95.0 % (92.0-100.0) 12/17/17 09:55 Lan Test NA 12/17/17 09:55 Vent Rate NA 12/17/17 09:55 Inspired O2 50 12/17/17 09:55 Tidal Volume NA 12/17/17 09:55 PEEP NA 12/17/17 09:55 Pressure (ins/psv/peep) NA 12/17/17 09:55 Critical Value E.MCGOWAN 12/17/17 09:55 Sodium 139 mEq/L (136-145) 12/18/17 06:50 Potassium 4.6 mEq/L (3.5-5.1) 12/18/17 06:50 Chloride 101 mEq/L (98-107) 12/18/17 06:50 Carbon Dioxide 39.5 mEq/L (21.0-31.0) H 12/18/17 06:50 Anion Gap 3.1 (7.0-16.0) L 12/18/17 06:50 BUN 27 mg/dL (7-25) H 12/18/17 06:50 Creatinine 0.9 mg/dL (0.7-1.3) 12/18/17 06:50 Est GFR ( Amer) TNP 12/18/17 06:50 Est GFR (Non-Af Amer) TNP 12/18/17 06:50 BUN/Creatinine Ratio 30.0 12/18/17 06:50 Glucose 169 mg/dL (70-105) H 12/18/17 06:50 POC Glucose 224 MG/DL (70 - 105) H 12/18/17 12:34 Uric Acid 4.4 mg/dL (4.4-7.6) 12/15/17 13:10 Calcium 9.0 mg/dL (8.6-10.3) 12/18/17 06:50 Phosphorus 3.4 mg/dL (2.5-5.0) 12/18/17 06:50 Magnesium 2.1 mg/dL (1.9-2.7) 12/18/17 06:50 Iron 27 ug/dL (38-169) L 12/12/17 09:30 TIBC 206 ug/dL (250-450) L 12/12/17 09:30 Iron Saturation 13 % (15-55) L 12/12/17 09:30 Unsaturated IBC 179 ug/dL (111-343) 12/12/17 09:30 Ferritin 184 ng/mL (30-400) 12/12/17 09:30 Total Bilirubin 0.4 mg/dL (0.3-1.0) 12/18/17 06:50 Direct Bilirubin 0.14 mg/dL (0.0-0.2) 12/12/17 09:30 AST 10 U/L (13-39) L 12/18/17 06:50 ALT 14 U/L (7-52) 12/18/17 06:50 Alkaline Phosphatase 83 U/L (34-104) 12/18/17 06:50 Ammonia 38 umol/L (16-53) 12/15/17 13:10 Lactate Dehydrogenase 119 U/L (140-271) L 12/12/17 09:30 B-Natriuretic Peptide 57.1 pg/mL (5.0-100.0) 12/17/17 06:00 Total Protein 5.9 gm/dL (6.0-8.3) L 12/18/17 06:50 Albumin 2.5 gm/dL (4.2-5.5) L 12/18/17 06:50 Globulin 3.4 gm/dL 12/18/17 06:50 Albumin/Globulin Ratio 0.7 (1.0-1.8) L 12/18/17 06:50 Triglycerides 129 mg/dL (<150) 12/18/17 06:50 Cholesterol 146 mg/dL (<200) 12/18/17 06:50 LDL Cholesterol Direct 82 mg/dL (75-193) 12/12/17 09:30 HDL Cholesterol 39 mg/dL (23-92) 12/12/17 09:30 Vitamin B12 1546 pg/mL (232-1245) H 12/12/17 09:30 Folic Acid 12.3 ng/mL (>3.0) 12/12/17 09:30 Free T4 1.23 ng/dL (0.82-1.77) 12/12/17 09:30 Free T3 1.7 pg/mL (2.0-4.4) L 12/12/17 09:30 TSH 1.64 uIU/ml (0.34-5.60) 12/12/17 09:30 Rheumatoid Factor 16.1 IU/mL (0.0-13.9) H 12/15/17 13:10 ACOSTA Screen Negative 12/12/17 09:30 ANCA Screen SEE REF REPORT 12/12/17 09:30 Proteinase 3 (PR3) SEE REF. LAB REPORT 12/12/17 09:30 Anti-Myeloperoxidase SEE REF. LAB REPORT 12/12/17 09:30 Anti-Ribosomal Ab <0.2 12/12/17 09:30 Chromatin Antibody SEE REF. LAB REPORT 12/12/17 09:30 S.cerevisiae IgG Ab SEE REF. LAB REPORT 12/12/17 09:30 S.cerevisiae IgA Ab SEE REF. LAB REPORT 12/12/17 09:30 Blood Type O NEGATIVE 12/15/17 13:10 Antibody Screen NEGATIVE 12/15/17 13:10 Crossmatch See Detail 12/15/17 13:10 - Physical Exam Vitals and I&O: Vital Signs Temp 97.6 F 12/18/17 04:00 Pulse 99 12/18/17 11:50 Resp 18 12/18/17 11:50 BP 152/69 12/18/17 08:50 Pulse Ox 98 12/18/17 11:50 Intake & Output 12/17/17 12/18/17 12/18/17 18:59 06:59 18:59 Intake Total 125 1000 100 Output Total 3 0 Balance 122 1000 100 Weight (lbs) 78.018 kg 78.471 kg Intake: Intake, IV Amount 100 1000 100 D5-0.9%Ns 1,000 ml @ 50 1000 mls/hr IV .Q20H [facility] OF [facility] Rx#: [id number] Levofloxacin 500mg/100mL 100 100 500 mg In 100 ml @ 100 mls/hr IV Q24HR ON LICENSE OF [facility] Rx#: [id number] Oral 25 0 Output: Urine 3 Stool 0 Urine/Stool Mix 0 Other: # Voids 3 4 # Bowel Movements 0 0 Stool Characteristics Soft Active Medications: Current Medications Albuterol Sulfate (Albuterol 2.5mg/3ml Neb Ud) 2.5 mg HHN Q4HRT PRN PRN Reason: Shortness of Breath or Wheeze Stop: 02/09/18 13:17 Last Admin: 12/16/17 02:30 Dose: 2.5 mg Albuterol/Ipratropium (Duoneb Neb) 3 ml HHN [id number] [facility] Stop: 02/10/18 06:59 Last Admin: 12/18/17 11:46 Dose: 3 ml Budesonide (Pulmicort) 0.5 mg HHN BIDRT [facility] OF [facility] Stop: 02/10/18 06:59 Last Admin: 12/18/17 07:33 Dose: 0.5 mg Levofloxacin (Levaquin Pb) 500 mg in 100 mls @ 100 mls/hr IV Q24HR DARIANA Stop: 02/15/18 08:59 Last Infusion: 12/18/17 09:30 Dose: Infused Amino Acids/Electrolytes (Procalamine) 1,000 mls @ 60 mls/hr IV .[id number] ON LICENSE OF [facility] Stop: 02/16/18 11:59 Insulin Aspart (Novolog Insulin Sliding Scale) 0 units SUBQ ACHS DARIANA PRN Reason: Protocol Stop: 02/09/18 16:29 Last Admin: 12/18/17 13:01 Dose: 4 units Methylprednisolone Sodium Succinate (Solu-Medrol) 40 mg IV Q8HR DARIANA Stop: 12/20/17 13:01 Last Admin: 12/18/17 13:01 Dose: 40 mg Mirtazapine (Remeron) 7.5 mg PO HS DARIANA PRN Reason: Protocol Stop: 02/10/18 20:59 Last Admin: 12/17/17 20:12 Dose: 7.5 mg Miscellaneous (Probiotic Screen) 1 [facility] PRN PRN PRN Reason: PROTOCOL Stop: 02/10/18 15:20 Miscellaneous (Ppn Per Pharmacy) 1 [facility] PRN PRN PRN Reason: PROTOCOL Stop: 02/15/18 14:20 Pantoprazole Sodium (Protonix) 40 mg IVP DAILY ON [facility] OF [facility] Stop: 02/15/18 08:59 Last Admin: 12/18/17 08:50 Dose: 40 mg General: Other (LETHARGIC) HEENT: Atraumatic, PERRLA, EOMI Neck: Supple Cardiovascular: Regular rate Lungs: Other (OCC RHONCHI) Abdomen: Bowel sounds, Soft, no Distended, no Obese Extremities: no Clubbing, no Cyanosis Neurological: Normal speech - Procedures Procedures: Procedures Procedure Code Date BLOOD TRANSFUSION SERVICE 28202 12/11/17 TRANSFUSE NONAUT RED BLOOD CELLS IN PERIPH VEIN, [facility] [id number] 12/11/17 Assessment/Plan - Assessment Assessment: 77 YO MALE WITH ANEMIA NO OVERT GI BLEEDING WAS OFFERRED EGD AND COLO FOR ANEMIA WORK UP AGAIN AND REFUSES PT UNDERSTANDS THAT FAILURE TO HAVE PROPER WORK UP COULD RESULT IN MISSED DIAGNOSIS, CANCER, CURE, TREATMENT OPPORTUNITIES LEADING TO EARLY OR UNFORSEABLE DISABILITY 1.FOLLOW H/H 2.CONT SUPP CARE 3.F/U PCP 4.WILL SEE NEEDED; CALL GI IF QUESTIONS OR IF PT CHANGES HIS MIND AND AGREES TO HAVE GI WORK UP
[2017-12-18] MEDS: Amino Acids 3% / Electrolytes 1,000 ML IV SCH (14:32)
--- NOTE | 2017-12-19 03:37 | Progress Notes ---
DATE: 12/18/2017 SUBJECTIVE: Case was discussed with staff of the patient, reviewed records. The patient today was alert. He was calm and cooperative. He was able to talk. He reported that he is feeling better. He denies any current intent to harm himself or anybody. He denies any auditory or visual hallucinations. He promises that he will not harm himself, says he seems to have done much better. He is on Remeron 7.5 mg at bedtime. I recommend that he continues with that. The patient may need to go to [facility] if he is still depressed; however, if he goes back to the senior care, he will need to follow up with the psychiatrist when discharged. Thank you very much for allowing me to participate in the care of this most interesting gentleman. JOB# [id number]
[2017-12-19] MEDS: methylPREDNISolone SS 40 mg Vial IV SCH ×3 (04:31→20:39)
--- NOTE | 2017-12-19 04:46 | Progress Notes ---
DATE: 12/18/2017 PROBLEM LIST: 1. Acute on chronic respiratory failure. 2. Severe pulmonary fibrosis with cicatricial emphysema. 3. Psychosis. SYMPTOMS: Nil. Appears to be at this time pretty lucid, currently on oxymizer. No respiratory distress, etc. PHYSICAL EXAMINATION: VITAL SIGNS: Temperature is 97, pulse is 84, saturation 98 on 4 liters with oxymizer. NECK: Veins not visualized. CHEST: Shows occasional rhonchi with diminished air entry. HEART: Regular. EXTREMITIES: Shows chronic changes, left side, but otherwise unremarkable. LABORATORY DATA: The patient's white count is 4.2. Chemistries are reasonably well. ASSESSMENT: The patient is clinically better. PLANS AND SUGGESTIONS: We will continue current treatment. We will decrease to low-flow O2, see how he does, and go from there. JOB# [id number]
[2017-12-19] MEDS: Amino Acids 3% / Electrolytes 1,000 ML IV SCH (06:40)
[2017-12-19 06:58] LABS: ALB/GLOB RATIO 0.8 (1.0-1.8); ALBUMIN 2.4 gm/dL (4.2-5.5); ALKALINE PHOSPHATASE 78 U/L (34-104); ANION GAP 3.1 (7.0-16.0); BILIRUBIN,TOTAL 0.3 mg/dL (0.3-1.0); BUN - UREA NITROGEN 35 mg/dL (7-25); CALCIUM SERUM 8.7 mg/dL (8.6-10.3); CARBON DIOXIDE 39.7 mEq/L (21.0-31.0); CHLORIDE 98 mEq/L (98-107); GLUCOSE 248 mg/dL (70-105); POTASSIUM SERUM 4.8 mEq/L (3.5-5.1); SGOT 11 U/L (13-39); SGPT/ALT 14 U/L (7-52); SODIUM SERUM 136 mEq/L (136-145); TOTAL PROTEIN,SERUM 5.3 gm/dL (6.0-8.3)
[2017-12-19] MEDS: Budesonide 0.5 Mg/2 mL Ud HHN SCH ×2 (07:26→19:20)
[2017-12-19] MEDS: Albuterol/Ipratropium Neb 3 ML AERS HHN SCH ×4 (07:26→19:20)
[2017-12-19] MEDS: INSULIN ASPART SLIDING SCALE 100 UNITS/ML UNIT SUBQ SCH ×4 (08:05→20:39)
[2017-12-19] MEDS: Levofloxacin 500mg/100mL 500 MG/100 ML BAG IV SCH (08:19)
--- NOTE | 2017-12-19 08:25 | General Progress Note ---
Subjective - Review of Systems Service Date: 12/19/17 Subjective: Patient more awake and alert tody. Patient's Hb 10. No overt bleeding. Eating better (apr 75%) meals. Swelling noted to the left lower ext. Venous US neg for DVT. Discussed with son regarding patient's condition. For Hospice Eval. Objective - Results Result Diagrams: 12/18/17 06:50 03 06:20 Recent Labs: Laboratory Last Values WBC 4.2 Th/cmm (4.8-10.8) L D 12/18/17 06:50 RBC 3.37 Mil/cmm (3.80-5.80) L 12/18/17 06:50 Hgb 10.1 gm/dL (12-16) L 12/18/17 06:50 Hct 30.8 % (41.0-60) L D 12/18/17 06:50 MCV 91.6 fl (80-99) 12/18/17 06:50 MCH 30.1 pg (27.0-31.0) 12/18/17 06:50 MCHC Differential 32.8 pg (28.0-36.0) 12/18/17 06:50 RDW 18.2 % (11.5-20.0) 12/18/17 06:50 Plt Count 254 Th/cmm (150-400) 12/18/17 06:50 MPV 6.1 fl 12/18/17 06:50 Neutrophils % 69.9 % (40.0-80.0) 12/16/17 21:00 Band Neutrophils % 4 % (0-10) 12/18/17 06:50 Lymphocytes % 10.6 % (20.0-50.0) L 12/16/17 21:00 Monocytes % 13.9 % (2.0-10.0) H 12/16/17 21:00 Eosinophils % 4.8 % (0.0-5.0) 12/16/17 21:00 Basophils % 0.8 % (0.0-2.0) 12/16/17 21:00 Neutrophils (Manual) 83 % (40-80) H 12/18/17 06:50 Lymphocytes 5 % (20-50) L 12/18/17 06:50 Monocytes 8 % (2-10) 12/18/17 06:50 Eosinophils 8 % (0-5) H 12/16/17 05:40 Basophils 1 % (0-3) 12/16/17 05:40 Hypochromia 1+ 12/16/17 05:40 Platelet Estimate ADEQUATE (NORMAL) 12/18/17 06:50 Polychromasia 1+ 12/16/17 05:40 Anisocytosis 1+ 12/18/17 06:50 Tear Drop Cells 1+ 12/16/17 05:40 Ovalocytes 1+ 12/16/17 05:40 ESR > 105 mm/hr (0-20) H 12/12/17 09:30 Total Retics Counted 2.7 % (0.5-1.5) H 12/12/17 09:30 Absolute Retic 67.2 Th/cmm 12/12/17 09:30 Corrected Retic Count 1.4 % (0.5-1.5) 12/12/17 09:30 Lupus Anticoag aPTT 40.5 sec (0.0-51.9) 12/12/17 09:30 dRVVT Screen 57.2 sec (0.0-47.0) H 12/12/17 09:30 dRVVT Confirm Seconds 1.2 ratio (0.8-1.2) 12/12/17 09:30 dRVVT Mix 47.2 sec (0.0-47.0) H 12/12/17 09:30 Lupus Anticoag Interp Comment: 12/12/17 09:30 Specimen Source Arterial 12/17/17 09:55 Sample Site RB 12/17/17 09:55 pH 7.34 (7.35-7.45) L 12/17/17 09:55 pCO2 77.0 mmHg (35.0-45.0) H* 12/17/17 09:55 pO2 81.0 mmHg (80.0-100.0) 12/17/17 09:55 HCO3 34.6 mEq/L (20.0-26.0) H 12/17/17 09:55 Base Excess 12.5 mEq/L (-3.0-3.0) H 12/17/17 09:55 O2 Saturation 95.0 % (92.0-100.0) 12/17/17 09:55 Lan Test NA 12/17/17 09:55 Vent Rate NA 12/17/17 09:55 Inspired O2 50 12/17/17 09:55 Tidal Volume NA 12/17/17 09:55 PEEP NA 12/17/17 09:55 Pressure (ins/psv/peep) NA 12/17/17 09:55 Critical Value E.MCGOWAN 12/17/17 09:55 Sodium 136 mEq/L (136-145) 12/19/17 06:20 Potassium 4.8 mEq/L (3.5-5.1) 12/19/17 06:20 Chloride 98 mEq/L (98-107) 12/19/17 06:20 Carbon Dioxide 39.7 mEq/L (21.0-31.0) H 12/19/17 06:20 Anion Gap 3.1 (7.0-16.0) L 12/19/17 06:20 BUN 35 mg/dL (7-25) H 12/19/17 06:20 Creatinine 1.0 mg/dL (0.7-1.3) 12/19/17 06:20 Est GFR ( Amer) TNP 12/19/17 06:20 Est GFR (Non-Af Amer) TNP 12/19/17 06:20 BUN/Creatinine Ratio 35.0 12/19/17 06:20 Glucose 248 mg/dL (70-105) H 12/19/17 06:20 POC Glucose 246 MG/DL (70 - 105) H 12/19/17 06:48 Uric Acid 4.4 mg/dL (4.4-7.6) 12/15/17 13:10 Calcium 8.7 mg/dL (8.6-10.3) 12/19/17 06:20 Phosphorus 3.4 mg/dL (2.5-5.0) 12/18/17 06:50 Magnesium 2.1 mg/dL (1.9-2.7) 12/18/17 06:50 Iron 27 ug/dL (38-169) L 12/12/17 09:30 TIBC 206 ug/dL (250-450) L 12/12/17 09:30 Iron Saturation 13 % (15-55) L 12/12/17 09:30 Unsaturated IBC 179 ug/dL (111-343) 12/12/17 09:30 Ferritin 184 ng/mL (30-400) 12/12/17 09:30 Total Bilirubin 0.3 mg/dL (0.3-1.0) 12/19/17 06:20 Direct Bilirubin 0.14 mg/dL (0.0-0.2) 12/12/17 09:30 AST 11 U/L (13-39) L 12/19/17 06:20 ALT 14 U/L (7-52) 12/19/17 06:20 Alkaline Phosphatase 78 U/L (34-104) 12/19/17 06:20 Ammonia 38 umol/L (16-53) 12/15/17 13:10 Lactate Dehydrogenase 119 U/L (140-271) L 12/12/17 09:30 B-Natriuretic Peptide 79.4 pg/mL (5.0-100.0) 12/19/17 06:20 Total Protein 5.3 gm/dL (6.0-8.3) L 12/19/17 06:20 Albumin 2.4 gm/dL (4.2-5.5) L 12/19/17 06:20 Globulin 2.9 gm/dL 12/19/17 06:20 Albumin/Globulin Ratio 0.8 (1.0-1.8) L 12/19/17 06:20 Prealbumin 8 mg/dL (9-32) L 12/18/17 06:50 Triglycerides 129 mg/dL (<150) 12/18/17 06:50 Cholesterol 146 mg/dL (<200) 12/18/17 06:50 LDL Cholesterol Direct 82 mg/dL (75-193) 12/12/17 09:30 HDL Cholesterol 39 mg/dL (23-92) 12/12/17 09:30 Vitamin B12 1546 pg/mL (232-1245) H 12/12/17 09:30 Folic Acid 12.3 ng/mL (>3.0) 12/12/17 09:30 Free T4 1.23 ng/dL (0.82-1.77) 12/12/17 09:30 Free T3 1.7 pg/mL (2.0-4.4) L 12/12/17 09:30 TSH 1.64 uIU/ml (0.34-5.60) 12/12/17 09:30 Rheumatoid Factor 16.1 IU/mL (0.0-13.9) H 12/15/17 13:10 ACOSTA Screen Negative 12/12/17 09:30 ANCA Screen SEE REF REPORT 12/12/17 09:30 Proteinase 3 (PR3) SEE REF. LAB REPORT 12/12/17 09:30 Anti-Myeloperoxidase SEE REF. LAB REPORT 12/12/17 09:30 Anti-Ribosomal Ab <0.2 12/12/17 09:30 Chromatin Antibody SEE REF. LAB REPORT 12/12/17 09:30 S.cerevisiae IgG Ab SEE REF. LAB REPORT 12/12/17 09:30 S.cerevisiae IgA Ab SEE REF. LAB REPORT 12/12/17 09:30 Blood Type O NEGATIVE 12/15/17 13:10 Antibody Screen NEGATIVE 12/15/17 13:10 Crossmatch See Detail 12/15/17 13:10 - Physical Exam Vitals and I&O: Vital Signs Temp 97.2 F 12/19/17 04:00 Pulse 99 12/19/17 07:43 Resp 20 12/19/17 07:43 BP 157/92 12/19/17 04:00 Pulse Ox 99 12/19/17 07:43 Intake & Output 12/18/17 12/19/17 12/19/17 18:59 06:59 18:59 Intake Total 500 1218 Output Total 0 Balance 500 1218 Weight (lbs) 78.471 kg 80.331 kg Intake: Intake, IV Amount 100 968 Amino Acids 3% / 968 Electrolytes 1,000 ml @ 60 mls/hr IV .[id number] [facility] Rx#:[id number] Levofloxacin 500mg/100mL 100 500 mg In 100 ml @ 100 mls/hr IV Q24HR [facility] Rx#: [id number] Oral 400 250 Output: Stool 0 Other: # Voids 3 2 # Bowel Movements 0 1 Active Medications: Current Medications Albuterol Sulfate (Albuterol 2.5mg/3ml Neb Ud) 2.5 mg HHN Q4HRT PRN PRN Reason: Shortness of Breath or Wheeze Stop: 02/09/18 13:17 Last Admin: 12/16/17 02:30 Dose: 2.5 mg Albuterol/Ipratropium (Duoneb Neb) 3 ml HHN [id number] [facility] Stop: 02/10/18 06:59 Last Admin: 12/19/17 07:26 Dose: 3 ml Budesonide (Pulmicort) 0.5 mg HHN BIDRT [facility] Stop: 02/10/18 06:59 Last Admin: 12/19/17 07:26 Dose: 0.5 mg Levofloxacin (Levaquin Pb) 500 mg in 100 mls @ 100 mls/hr IV Q24HR [facility] Stop: 02/15/18 08:59 Last Admin: 12/19/17 08:19 Dose: 100 mls/hr Amino Acids/Electrolytes (Procalamine) 1,000 mls @ 60 mls/hr IV .[id number] [facility] Stop: 02/16/18 11:59 Last Admin: 12/19/17 06:40 Dose: 60 mls/hr Insulin Aspart (Novolog Insulin Sliding Scale) 0 units SUBQ ACHS [facility] PRN Reason: Protocol Stop: 02/09/18 16:29 Last Admin: 12/19/17 08:05 Dose: 4 units Methylprednisolone Sodium Succinate (Solu-Medrol) 40 mg IV Q8HR [facility] Stop: 12/20/17 13:01 Last Admin: 12/19/17 04:31 Dose: 40 mg Mirtazapine (Remeron) 7.5 mg PO HS [facility] PRN Reason: Protocol Stop: 02/10/18 20:59 Last Admin: 12/18/17 21:48 Dose: 7.5 mg Miscellaneous (Probiotic Screen) 1 ea PRN PRN PRN Reason: PROTOCOL Stop: 02/10/18 15:20 Miscellaneous (Ppn Per Pharmacy) 1 [facility] PRN PRN PRN Reason: PROTOCOL Stop: 02/15/18 14:20 Pantoprazole Sodium (Protonix) 40 mg IVP DAILY [facility] Stop: 02/15/18 08:59 Last Admin: 12/19/17 08:14 Dose: 40 mg General: Alert, Oriented x3, No acute distress HEENT: Atraumatic, PERRLA, EOMI Neck: Supple Cardiovascular: Regular rate Lungs: Other (OCC RHONCHI) Abdomen: Bowel sounds, Soft, no Distended, no Obese Extremities: no Clubbing, no Cyanosis Neurological: Normal speech - Procedures Procedures: Procedures Procedure Code Date BLOOD TRANSFUSION SERVICE 88033 12/11/17 TRANSFUSE NONAUT RED BLOOD CELLS IN PERIPH VEIN, [facility] 12561D3 12/11/17 Assessment/Plan - Assessment Assessment: moderate malnutrition chronic interstitial lung disease/pulmonary fibrosis CHF cellulitis to lower extremity psychosis dementia COPD/emphysema asthma HTN DM chronic anemia r/o GIB h/o malignant melanoma w/ lymph node dissection of the L groin left LE edema Elevated Rheimatoid factor elevated ESR r/o SLE will check ACOSTA malnutrition/dehydration ... poor PO intake. hyperkalemia - Plan Plan: see orders Doppler US venous to the Left LE ACOSTA, uric acid, RA pending continue Azithromycin IV and rocephin IV anemia ... will order type and screen 2 units and transfused 2 units packed RBC' s start solumedrol 40mg IV q8 Start on TPN. Hospice Evaluation will add Lasix 40mg IV daily and KCL 20meq PO daily. Nutritional Asmnt/Malnutr-PDOC - Dietary Evaluation Malnutrition Findings (Please click <Entered> for more info): Nutritional Asmnt/Malnutrition Start: 12/17/17 16: 15 Text: Status: Complete Freq: Document 12/17/17 16:15 AYSHA (Rec: 12/17/17 16:27 [email or web address] Nutritional Asmnt/Malnutrition Patient General Information Nutritional Screening Moderate Risk Diagnosis pulmonary fibrosis, acute resp failure Pertinent Medical Hx/Surgical Hx HTN, asthma/COPD, depression, melanoma, DM Subjective Information Pt seen lying in bed on bipap mask. Per record PO intake 0- 50%. RN reported pt had poor PO intake d/t weakness and MD ordered PPN will start soon. Current Diet Order/ Nutrition Support CCHO-60gm Pertinent Medications D5-0.9ns, novolog, levaquin, remeron, protonix Pertinent Labs 12/17 Na 136, K 5.4, Cl 99, BUN 19, Cr 0.9, glucose 209, POC 206-221 Nutritional Hx/Data Height 1.78 m Height (Calculated Centimeters) 177.8 Current Weight (lbs) 78.018 kg Weight (Calculated Kilograms) 78.0 Weight (Calculated Grams) 89335.9 Body Mass Index (BMI) 24.7 GI Symptoms GI Symptoms None Last BM 12/16 Difficult in: None Skin Integrity/Comment: reddened to sacral coccyx buttocks, left leg, left arm Estimated Nutritional Goals BEE in Kcals: Using Current wt Calories/Kcals/Kg 25-30 Kcals Calculated 3621-0206 Protein: Using Current wt Protein g/k-1.2 Protein Calculated 78-94 Fluid: ml 1950-2340ml (1ml/kcal) Nutritional Problem 1. Problem Problem inadequate food intake Etiology weakness, poor appetite Signs/Symptoms: PO intake <50%, need for PPN Intervention/Recommendation Comments 1. Start PPN. Monitor intake from nutrition support. 2. Monitor wt, labs and skin integrity 3. F/U as high risk in 2-3 days, 3/2-3/3 Expected Outcomes/Goals Expected Outcomes/Goals 1. PO intake to meet at least 75% of nutritional needs from nutrition support. 2. Wt stability, skin to remain intact, labs to approach WNL.
[2017-12-19] MEDS: Potassium Chloride 20 mEq ER Tab PO SCH (09:47)
[2017-12-19] MEDS: PPN D20%/AMI 8.5% IV SCH (15:33)
--- NOTE | 2017-12-19 22:40 | Progress Notes ---
DATE: 12/19/2017 SUBJECTIVE: Case was discussed with staff of the patient. The patient seems to be showing progress. He is calmer. He is less angry and agitated as he was the first few days he was here. He denies any current intent to harm himself or anybody. He denies any auditory or visual hallucinations or paranoia. He is on Remeron with no side effects, also on antibiotic and he is also on oxygen mask. No side effects with the medication, no sedation, no nausea. Thank you very much for allowing me to participate in the care of this most interesting patient. JOB# [id number]
--- NOTE | 2017-12-20 03:43 | Progress Notes ---
DATE: 12/19/2017 PULMONARY PROGRESS NOTE PROBLEM LIST: 1. Acute respiratory failure. 2. Pulmonary fibrosis. 3. Possible tobacco dependent, underlying psychosis, and also left leg cellulitis. SYMPTOMS: The patient is more cooperative, less distress, does not offer any specific symptomatology. Currently using a breathing treatment. PHYSICAL EXAMINATION: VITAL SIGNS: Afebrile. Respiration is 20, pulse is 99, saturation 96% on 4 liters per minute. NECK: Veins not visualized. CHEST: Shows diminished air entry with occasional rhonchi. HEART: Regular. ABDOMEN: Soft, nontender. LABORATORY DATA: The patient's electrolytes are okay. The patient is overall seemingly improving, tolerating low-flow oxygen okay. PLANS AND SUGGESTIONS: We will go ahead and continue current treatment. Recheck oxygen level tomorrow again and possible consideration for discharge planning. JOB# [id number]
[2017-12-20] MEDS: methylPREDNISolone SS 40 mg Vial IV SCH ×2 (04:13→12:46)
--- NOTE | 2017-12-20 06:33 | General Progress Note ---
Subjective - Review of Systems Service Date: 12/20/17 Subjective: Patient resting confortably in bed. Patient's Hb 10. No overt bleeding. Eating better (apr 75%) meals. Swelling noted to the left lower ext. Venous US neg for DVT. Discussed with son regarding patient's condition. For Hospice Eval. Objective - Results Result Diagrams: 12/18/17 06:50 03 06:20 Recent Labs: Laboratory Last Values WBC 4.2 Th/cmm (4.8-10.8) L D 12/18/17 06:50 RBC 3.37 Mil/cmm (3.80-5.80) L 12/18/17 06:50 Hgb 10.1 gm/dL (12-16) L 12/18/17 06:50 Hct 30.8 % (41.0-60) L D 12/18/17 06:50 MCV 91.6 fl (80-99) 12/18/17 06:50 MCH 30.1 pg (27.0-31.0) 12/18/17 06:50 MCHC Differential 32.8 pg (28.0-36.0) 12/18/17 06:50 RDW 18.2 % (11.5-20.0) 12/18/17 06:50 Plt Count 254 Th/cmm (150-400) 12/18/17 06:50 MPV 6.1 fl 12/18/17 06:50 Neutrophils % 69.9 % (40.0-80.0) 12/16/17 21:00 Band Neutrophils % 4 % (0-10) 12/18/17 06:50 Lymphocytes % 10.6 % (20.0-50.0) L 12/16/17 21:00 Monocytes % 13.9 % (2.0-10.0) H 12/16/17 21:00 Eosinophils % 4.8 % (0.0-5.0) 12/16/17 21:00 Basophils % 0.8 % (0.0-2.0) 12/16/17 21:00 Neutrophils (Manual) 83 % (40-80) H 12/18/17 06:50 Lymphocytes 5 % (20-50) L 12/18/17 06:50 Monocytes 8 % (2-10) 12/18/17 06:50 Eosinophils 8 % (0-5) H 12/16/17 05:40 Basophils 1 % (0-3) 12/16/17 05:40 Hypochromia 1+ 12/16/17 05:40 Platelet Estimate ADEQUATE (NORMAL) 12/18/17 06:50 Polychromasia 1+ 12/16/17 05:40 Anisocytosis 1+ 12/18/17 06:50 Tear Drop Cells 1+ 12/16/17 05:40 Ovalocytes 1+ 12/16/17 05:40 ESR > 105 mm/hr (0-20) H 12/12/17 09:30 Total Retics Counted 2.7 % (0.5-1.5) H 12/12/17 09:30 Absolute Retic 67.2 Th/cmm 12/12/17 09:30 Corrected Retic Count 1.4 % (0.5-1.5) 12/12/17 09:30 Lupus Anticoag aPTT 40.5 sec (0.0-51.9) 12/12/17 09:30 dRVVT Screen 57.2 sec (0.0-47.0) H 12/12/17 09:30 dRVVT Confirm Seconds 1.2 ratio (0.8-1.2) 12/12/17 09:30 dRVVT Mix 47.2 sec (0.0-47.0) H 12/12/17 09:30 Lupus Anticoag Interp Comment: 12/12/17 09:30 Specimen Source Arterial 12/17/17 09:55 Sample Site RB 12/17/17 09:55 pH 7.34 (7.35-7.45) L 12/17/17 09:55 pCO2 77.0 mmHg (35.0-45.0) H* 12/17/17 09:55 pO2 81.0 mmHg (80.0-100.0) 12/17/17 09:55 HCO3 34.6 mEq/L (20.0-26.0) H 12/17/17 09:55 Base Excess 12.5 mEq/L (-3.0-3.0) H 12/17/17 09:55 O2 Saturation 95.0 % (92.0-100.0) 12/17/17 09:55 Lan Test NA 12/17/17 09:55 Vent Rate NA 12/17/17 09:55 Inspired O2 50 12/17/17 09:55 Tidal Volume NA 12/17/17 09:55 PEEP NA 12/17/17 09:55 Pressure (ins/psv/peep) NA 12/17/17 09:55 Critical Value E.MCGOWAN 12/17/17 09:55 Sodium 136 mEq/L (136-145) 12/19/17 06:20 Potassium 4.8 mEq/L (3.5-5.1) 12/19/17 06:20 Chloride 98 mEq/L (98-107) 12/19/17 06:20 Carbon Dioxide 39.7 mEq/L (21.0-31.0) H 12/19/17 06:20 Anion Gap 3.1 (7.0-16.0) L 12/19/17 06:20 BUN 35 mg/dL (7-25) H 12/19/17 06:20 Creatinine 1.0 mg/dL (0.7-1.3) 12/19/17 06:20 Est GFR ( Amer) TNP 12/19/17 06:20 Est GFR (Non-Af Amer) TNP 12/19/17 06:20 BUN/Creatinine Ratio 35.0 12/19/17 06:20 Glucose 248 mg/dL (70-105) H 12/19/17 06:20 POC Glucose 333 MG/DL (70 - 105) H 12/20/17 06:12 Uric Acid 4.4 mg/dL (4.4-7.6) 12/15/17 13:10 Calcium 8.7 mg/dL (8.6-10.3) 12/19/17 06:20 Phosphorus 3.4 mg/dL (2.5-5.0) 12/18/17 06:50 Magnesium 2.1 mg/dL (1.9-2.7) 12/18/17 06:50 Iron 27 ug/dL (38-169) L 12/12/17 09:30 TIBC 206 ug/dL (250-450) L 12/12/17 09:30 Iron Saturation 13 % (15-55) L 12/12/17 09:30 Unsaturated IBC 179 ug/dL (111-343) 12/12/17 09:30 Ferritin 184 ng/mL (30-400) 12/12/17 09:30 Total Bilirubin 0.3 mg/dL (0.3-1.0) 12/19/17 06:20 Direct Bilirubin 0.14 mg/dL (0.0-0.2) 12/12/17 09:30 AST 11 U/L (13-39) L 12/19/17 06:20 ALT 14 U/L (7-52) 12/19/17 06:20 Alkaline Phosphatase 78 U/L (34-104) 12/19/17 06:20 Ammonia 38 umol/L (16-53) 12/15/17 13:10 Lactate Dehydrogenase 119 U/L (140-271) L 12/12/17 09:30 B-Natriuretic Peptide 79.4 pg/mL (5.0-100.0) 12/19/17 06:20 Total Protein 5.3 gm/dL (6.0-8.3) L 12/19/17 06:20 Albumin 2.4 gm/dL (4.2-5.5) L 12/19/17 06:20 Globulin 2.9 gm/dL 12/19/17 06:20 Albumin/Globulin Ratio 0.8 (1.0-1.8) L 12/19/17 06:20 Prealbumin 8 mg/dL (9-32) L 12/18/17 06:50 Triglycerides 129 mg/dL (<150) 12/18/17 06:50 Cholesterol 146 mg/dL (<200) 12/18/17 06:50 LDL Cholesterol Direct 82 mg/dL (75-193) 12/12/17 09:30 HDL Cholesterol 39 mg/dL (23-92) 12/12/17 09:30 Vitamin B12 1546 pg/mL (232-1245) H 12/12/17 09:30 Folic Acid 12.3 ng/mL (>3.0) 12/12/17 09:30 Free T4 1.23 ng/dL (0.82-1.77) 12/12/17 09:30 Free T3 1.7 pg/mL (2.0-4.4) L 12/12/17 09:30 TSH 1.64 uIU/ml (0.34-5.60) 12/12/17 09:30 Rheumatoid Factor 16.1 IU/mL (0.0-13.9) H 12/15/17 13:10 ACOSTA Screen Negative 12/12/17 09:30 ANCA Screen SEE REF REPORT 12/12/17 09:30 Proteinase 3 (PR3) SEE REF. LAB REPORT 12/12/17 09:30 Anti-Myeloperoxidase SEE REF. LAB REPORT 12/12/17 09:30 Anti-Ribosomal Ab <0.2 12/12/17 09:30 Chromatin Antibody SEE REF. LAB REPORT 12/12/17 09:30 S.cerevisiae IgG Ab SEE REF. LAB REPORT 12/12/17 09:30 S.cerevisiae IgA Ab SEE REF. LAB REPORT 12/12/17 09:30 Blood Type O NEGATIVE 12/15/17 13:10 Antibody Screen NEGATIVE 12/15/17 13:10 Crossmatch See Detail 12/15/17 13:10 - Physical Exam Vitals and I&O: Vital Signs Temp 97.8 F 12/20/17 04:00 Pulse 86 12/20/17 04:00 Resp 18 12/20/17 04:00 BP 139/73 12/20/17 04:00 Pulse Ox 98 12/20/17 04:00 Intake & Output 12/19/17 12/19/17 12/20/17 06:59 18:59 06:59 Intake Total 1218 100 Balance 1218 100 Weight (lbs) 80.331 kg Intake: Intake, IV Amount 968 100 Amino Acids 3% / 968 Electrolytes 1,000 ml @ 60 mls/hr IV .[id number] [facility] Rx#:[id number] Levofloxacin 500mg/100mL 100 500 mg In 100 ml @ 100 mls/hr IV Q24HR [facility] Rx#: [id number] Oral 250 Other: # Voids 2 # Bowel Movements 1 Stool Characteristics Soft Brown Brown Active Medications: Current Medications Albuterol Sulfate (Albuterol 2.5mg/3ml Neb Ud) 2.5 mg HHN Q4HRT PRN PRN Reason: Shortness of Breath or Wheeze Stop: 02/09/18 13:17 Last Admin: 12/16/17 02:30 Dose: 2.5 mg Albuterol/Ipratropium (Duoneb Neb) 3 ml HHN [id number] [facility] Stop: 02/10/18 06:59 Last Admin: 12/19/17 19:20 Dose: 3 ml Budesonide (Pulmicort) 0.5 mg HHN BIDRT [facility] Stop: 02/10/18 06:59 Last Admin: 12/19/17 19:20 Dose: 0.5 mg Furosemide (Lasix) 40 mg IVP DAILY [facility] Stop: 02/17/18 08:59 Last Admin: 12/19/17 09:51 Dose: 40 mg Levofloxacin (Levaquin Pb) 500 mg in 100 mls @ 100 mls/hr IV Q24HR [facility] Stop: 02/15/18 08:59 Last Infusion: 12/19/17 12:49 Dose: Infused Multivitamins/Minerals 10 ml/ (Amino Acids) 1,450 mls @ 60 mls/hr IV .Q24H [facility] Stop: 01/15/18 14:59 Last Admin: 12/19/17 15:33 Dose: 60 mls/hr Insulin Aspart (Novolog Insulin Sliding Scale) 0 units SUBQ ACHS [facility] PRN Reason: Protocol Stop: 02/09/18 16:29 Last Admin: 12/19/17 20:39 Dose: 8 units Methylprednisolone Sodium Succinate (Solu-Medrol) 40 mg IV Q8HR [facility] Stop: 12/20/17 13:01 Last Admin: 12/20/17 04:13 Dose: 40 mg Mirtazapine (Remeron) 7.5 mg PO HS [facility] PRN Reason: Protocol Stop: 02/10/18 20:59 Last Admin: 12/19/17 20:34 Dose: 7.5 mg Miscellaneous (Probiotic Screen) 1 [facility] PRN PRN PRN Reason: PROTOCOL Stop: 02/10/18 15:20 Miscellaneous (Ppn Per Pharmacy) 1 [facility] PRN PRN PRN Reason: PROTOCOL Stop: 02/15/18 14:20 Pantoprazole Sodium (Protonix) 40 mg IVP DAILY [facility] Stop: 02/15/18 08:59 Last Admin: 12/19/17 08:14 Dose: 40 mg Potassium Chloride (Klor-Con) 20 meq PO DAILY [facility] Stop: 02/17/18 08:59 Last Admin: 12/19/17 09:47 Dose: 20 meq General: Alert, Oriented x3, No acute distress HEENT: Atraumatic, PERRLA, EOMI Neck: Supple Cardiovascular: Regular rate Lungs: Other (OCC RHONCHI) Abdomen: Bowel sounds, Soft, no Distended, no Obese Extremities: no Clubbing, no Cyanosis Neurological: Normal speech - Procedures Procedures: Procedures Procedure Code Date BLOOD TRANSFUSION SERVICE 30312 12/11/17 TRANSFUSE NONAUT RED BLOOD CELLS IN PERIPH VEIN, [facility] 51864H6 12/11/17 Assessment/Plan - Assessment Assessment: moderate malnutrition chronic interstitial lung disease/pulmonary fibrosis CHF cellulitis to lower extremity psychosis dementia COPD/emphysema asthma HTN DM chronic anemia r/o GIB h/o malignant melanoma w/ lymph node dissection of the L groin left LE edema Elevated Rheimatoid factor elevated ESR r/o SLE will check ACOSTA malnutrition/dehydration ... poor PO intake. hyperkalemia hyperglycemia secondary to IV steroids. - Plan Plan: see orders Doppler US venous to the Left LE ACOSTA, uric acid, RA pending continue Azithromycin IV and rocephin IV anemia ... will order type and screen 2 units and transfused 2 units packed RBC' s start solumedrol 40mg IV q8 Start on TPN. Hospice Evaluation will add Lasix 40mg IV daily and KCL 20meq PO daily. Nutritional Asmnt/Malnutr-PDOC - Dietary Evaluation Malnutrition Findings (Please click <Entered> for more info): Nutritional Asmnt/Malnutrition Start: 12/17/17 16: 15 Text: Status: Complete Freq: Document 12/17/17 16:15 LCHENG (Rec: 12/17/17 16:27 LCHENG [email or web address]) Nutritional Asmnt/Malnutrition Patient General Information Nutritional Screening Moderate Risk Diagnosis pulmonary fibrosis, acute resp failure Pertinent Medical Hx/Surgical Hx HTN, asthma/COPD, depression, melanoma, DM Subjective Information Pt seen lying in bed on bipap mask. Per record PO intake 0- 50%. RN reported pt had poor PO intake d/t weakness and MD ordered PPN will start soon. Current Diet Order/ Nutrition Support CCHO-60gm Pertinent Medications D5-0.9ns, novolog, levaquin, remeron, protonix Pertinent Labs 12/17 Na 136, K 5.4, Cl 99, BUN 19, Cr 0.9, glucose 209, POC 206-221 Nutritional Hx/Data Height 1.78 m Height (Calculated Centimeters) 177.8 Current Weight (lbs) 78.018 kg Weight (Calculated Kilograms) 78.0 Weight (Calculated Grams) 31204.9 Body Mass Index (BMI) 24.7 GI Symptoms GI Symptoms None Last BM 12/16 Difficult in: None Skin Integrity/Comment: reddened to sacral coccyx buttocks, left leg, left arm Estimated Nutritional Goals BEE in Kcals: Using Current wt Calories/Kcals/Kg 25-30 Kcals Calculated 0362-5203 Protein: Using Current wt Protein g/k-1.2 Protein Calculated 78-94 Fluid: ml 1950-2340ml (1ml/kcal) Nutritional Problem 1. Problem Problem inadequate food intake Etiology weakness, poor appetite Signs/Symptoms: PO intake <50%, need for PPN Intervention/Recommendation Comments 1. Start PPN. Monitor intake from nutrition support. 2. Monitor wt, labs and skin integrity 3. F/U as high risk in 2-3 days, 3/2-3/3 Expected Outcomes/Goals Expected Outcomes/Goals 1. PO intake to meet at least 75% of nutritional needs from nutrition support. 2. Wt stability, skin to remain intact, labs to approach WNL.
[2017-12-20 07:09] LABS: ALB/GLOB RATIO 0.8 (1.0-1.8); ALBUMIN 2.4 gm/dL (4.2-5.5); ALKALINE PHOSPHATASE 82 U/L (34-104); ANION GAP 4.8 (7.0-16.0); BILIRUBIN,TOTAL 0.3 mg/dL (0.3-1.0); BUN - UREA NITROGEN 42 mg/dL (7-25); CALCIUM SERUM 8.6 mg/dL (8.6-10.3); CARBON DIOXIDE 37.7 mEq/L (21.0-31.0); CHLORIDE 98 mEq/L (98-107); GLUCOSE 318 mg/dL (70-105); MAGNESIUM 2.1 mg/dL (1.9-2.7); PHOSPHOROUS 2.3 mg/dL (2.5-5.0); POTASSIUM SERUM 4.5 mEq/L (3.5-5.1); SGOT 15 U/L (13-39); SGPT/ALT 20 U/L (7-52); SODIUM SERUM 136 mEq/L (136-145); TOTAL PROTEIN,SERUM 5.4 gm/dL (6.0-8.3); TRIGLYCERIDES 107 mg/dL (<150)
[2017-12-20] MEDS: Albuterol/Ipratropium Neb 3 ML AERS HHN SCH ×4 (07:50→18:39)
[2017-12-20] MEDS: Budesonide 0.5 Mg/2 mL Ud HHN SCH ×2 (07:50→18:47)
[2017-12-20] MEDS: INSULIN ASPART SLIDING SCALE 100 UNITS/ML UNIT SUBQ SCH ×4 (08:17→20:18)
[2017-12-20] MEDS: Potassium Chloride 20 mEq ER Tab PO SCH (08:32)
[2017-12-20] MEDS: Levofloxacin 500mg/100mL 500 MG/100 ML BAG IV SCH (10:19)
[2017-12-20] MEDS: PPN D20%/AMI 8.5% IV SCH (20:17)
[2017-12-20] MEDS: Albuterol Nebulizer 2.5mg/3mL HHN PRN (23:14)
--- NOTE | 2017-12-21 02:19 | Progress Notes ---
DATE: 12/20/2017 PULMONARY PROGRESS NOTE PROBLEM LIST: 1. Acute on chronic respiratory failure, stabilizing. 2. Pulmonary fibrosis with paracicatricial emphysema. 3. History of psychosis. SYMPTOMS: The patient is resting well with oxygen 3 liters per minute with fairly good saturation. PHYSICAL EXAMINATION: VITAL SIGNS: Temperature is 97.8, heart rate is 95, blood pressure 143/94, respiration 18. NECK: Veins not visualized. CHEST: Shows occasional rhonchi with diminished air entry. HEART: Regular. ABDOMEN: Soft, nontender. EXTREMITIES: Left leg shows slight swelling, otherwise unremarkable. LABORATORY DATA: Electrolytes are okay with phosphorus at 2.4 and albumin 2.4. ASSESSMENT: The patient clinically doing much better than a few days ago. PLANS AND SUGGESTIONS: Continue current treatment. We will repeat another blood gases prior to discharge and go from there. JOB# [id number]
[2017-12-21 07:05] LABS: ALB/GLOB RATIO 0.8 (1.0-1.8); ALBUMIN 2.5 gm/dL (4.2-5.5); ALKALINE PHOSPHATASE 97 U/L (34-104); ANION GAP 5.9 (7.0-16.0); BILIRUBIN,TOTAL 0.3 mg/dL (0.3-1.0); BUN - UREA NITROGEN 41 mg/dL (7-25); CALCIUM SERUM 8.9 mg/dL (8.6-10.3); CARBON DIOXIDE 37.7 mEq/L (21.0-31.0); CHLORIDE 98 mEq/L (98-107); GLUCOSE 283 mg/dL (70-105); MAGNESIUM 2.1 mg/dL (1.9-2.7); PHOSPHOROUS 2.1 mg/dL (2.5-5.0); POTASSIUM SERUM 4.6 mEq/L (3.5-5.1); SGOT 21 U/L (13-39); SGPT/ALT 28 U/L (7-52); SODIUM SERUM 137 mEq/L (136-145); TOTAL PROTEIN,SERUM 5.5 gm/dL (6.0-8.3)
[2017-12-21] MEDS: Budesonide 0.5 Mg/2 mL Ud HHN SCH ×2 (07:26→18:48)
[2017-12-21] MEDS: Albuterol/Ipratropium Neb 3 ML AERS HHN SCH ×4 (07:26→18:48)
[2017-12-21] MEDS: INSULIN ASPART SLIDING SCALE 100 UNITS/ML UNIT SUBQ SCH ×4 (08:29→22:13)
[2017-12-21] MEDS: Potassium Chloride 20 mEq ER Tab PO SCH (08:31)
[2017-12-21] MEDS: Levofloxacin 500mg/100mL 500 MG/100 ML BAG IV SCH (08:32)
--- NOTE | 2017-12-21 17:31 | General Progress Note ---
Subjective - Review of Systems Service Date: 12/21/17 Subjective: Patient appears better today. More awake and alert. Responding to questions more appropriately. Patient resting confortably in bed. Patient's Hb 10. No overt bleeding. Eating better (apr 75-100%) meals. No need for PPN. Will DC. Cellulitis to the left lower ext on Levofloxacin IV. Discussed with son regarding patient's condition. Patient's son would like to keep patient close to home. Objective - Results Result Diagrams: 12/18/17 06:50 12/21/17 06:16 Recent Labs: Laboratory Last Values WBC 4.2 Th/cmm (4.8-10.8) L D 12/18/17 06:50 RBC 3.37 Mil/cmm (3.80-5.80) L 12/18/17 06:50 Hgb 10.1 gm/dL (12-16) L 12/18/17 06:50 Hct 30.8 % (41.0-60) L D 12/18/17 06:50 MCV 91.6 fl (80-99) 12/18/17 06:50 MCH 30.1 pg (27.0-31.0) 12/18/17 06:50 MCHC Differential 32.8 pg (28.0-36.0) 12/18/17 06:50 RDW 18.2 % (11.5-20.0) 12/18/17 06:50 Plt Count 254 Th/cmm (150-400) 12/18/17 06:50 MPV 6.1 fl 12/18/17 06:50 Neutrophils % 69.9 % (40.0-80.0) 12/16/17 21:00 Band Neutrophils % 4 % (0-10) 12/18/17 06:50 Lymphocytes % 10.6 % (20.0-50.0) L 12/16/17 21:00 Monocytes % 13.9 % (2.0-10.0) H 12/16/17 21:00 Eosinophils % 4.8 % (0.0-5.0) 12/16/17 21:00 Basophils % 0.8 % (0.0-2.0) 12/16/17 21:00 Neutrophils (Manual) 83 % (40-80) H 12/18/17 06:50 Lymphocytes 5 % (20-50) L 12/18/17 06:50 Monocytes 8 % (2-10) 12/18/17 06:50 Eosinophils 8 % (0-5) H 12/16/17 05:40 Basophils 1 % (0-3) 12/16/17 05:40 Hypochromia 1+ 12/16/17 05:40 Platelet Estimate ADEQUATE (NORMAL) 12/18/17 06:50 Polychromasia 1+ 12/16/17 05:40 Anisocytosis 1+ 12/18/17 06:50 Tear Drop Cells 1+ 12/16/17 05:40 Ovalocytes 1+ 12/16/17 05:40 ESR > 105 mm/hr (0-20) H 12/12/17 09:30 Total Retics Counted 2.7 % (0.5-1.5) H 12/12/17 09:30 Absolute Retic 67.2 Th/cmm 12/12/17 09:30 Corrected Retic Count 1.4 % (0.5-1.5) 12/12/17 09:30 Lupus Anticoag aPTT 40.5 sec (0.0-51.9) 12/12/17 09:30 dRVVT Screen 57.2 sec (0.0-47.0) H 12/12/17 09:30 dRVVT Confirm Seconds 1.2 ratio (0.8-1.2) 12/12/17 09:30 dRVVT Mix 47.2 sec (0.0-47.0) H 12/12/17 09:30 Lupus Anticoag Interp Comment: 12/12/17 09:30 Specimen Source Arterial 12/17/17 09:55 Sample Site RB 12/17/17 09:55 pH 7.34 (7.35-7.45) L 12/17/17 09:55 pCO2 77.0 mmHg (35.0-45.0) H* 12/17/17 09:55 pO2 81.0 mmHg (80.0-100.0) 12/17/17 09:55 HCO3 34.6 mEq/L (20.0-26.0) H 12/17/17 09:55 Base Excess 12.5 mEq/L (-3.0-3.0) H 12/17/17 09:55 O2 Saturation 95.0 % (92.0-100.0) 12/17/17 09:55 Lan Test NA 12/17/17 09:55 Vent Rate NA 12/17/17 09:55 Inspired O2 50 12/17/17 09:55 Tidal Volume NA 12/17/17 09:55 PEEP NA 12/17/17 09:55 Pressure (ins/psv/peep) NA 12/17/17 09:55 Critical Value E.MCGOWAN 12/17/17 09:55 Sodium 137 mEq/L (136-145) 12/21/17 06:16 Potassium 4.6 mEq/L (3.5-5.1) 12/21/17 06:16 Chloride 98 mEq/L (98-107) 12/21/17 06:16 Carbon Dioxide 37.7 mEq/L (21.0-31.0) H 12/21/17 06:16 Anion Gap 5.9 (7.0-16.0) L 12/21/17 06:16 BUN 41 mg/dL (7-25) H 12/21/17 06:16 Creatinine 1.0 mg/dL (0.7-1.3) 12/21/17 06:16 Est GFR ( Amer) TNP 12/21/17 06:16 Est GFR (Non-Af Amer) TNP 12/21/17 06:16 BUN/Creatinine Ratio 41.0 12/21/17 06:16 Glucose 283 mg/dL (70-105) H 12/21/17 06:16 POC Glucose 177 MG/DL (70 - 105) H 12/21/17 17:13 Uric Acid 4.4 mg/dL (4.4-7.6) 12/15/17 13:10 Calcium 8.9 mg/dL (8.6-10.3) 12/21/17 06:16 Phosphorus 2.1 mg/dL (2.5-5.0) L 12/21/17 06:16 Magnesium 2.1 mg/dL (1.9-2.7) 12/21/17 06:16 Iron 27 ug/dL (38-169) L 12/12/17 09:30 TIBC 206 ug/dL (250-450) L 12/12/17 09:30 Iron Saturation 13 % (15-55) L 12/12/17 09:30 Unsaturated IBC 179 ug/dL (111-343) 12/12/17 09:30 Ferritin 184 ng/mL (30-400) 12/12/17 09:30 Total Bilirubin 0.3 mg/dL (0.3-1.0) 12/21/17 06:16 Direct Bilirubin 0.14 mg/dL (0.0-0.2) 12/12/17 09:30 AST 21 U/L (13-39) 12/21/17 06:16 ALT 28 U/L (7-52) 12/21/17 06:16 Alkaline Phosphatase 97 U/L (34-104) 12/21/17 06:16 Ammonia 38 umol/L (16-53) 12/15/17 13:10 Lactate Dehydrogenase 119 U/L (140-271) L 12/12/17 09:30 B-Natriuretic Peptide 79.4 pg/mL (5.0-100.0) 12/19/17 06:20 Total Protein 5.5 gm/dL (6.0-8.3) L 12/21/17 06:16 Albumin 2.5 gm/dL (4.2-5.5) L 12/21/17 06:16 Globulin 3.0 gm/dL 12/21/17 06:16 Albumin/Globulin Ratio 0.8 (1.0-1.8) L 12/21/17 06:16 Prealbumin 15 mg/dL (9-32) 12/20/17 05:39 Triglycerides 107 mg/dL (<150) 12/20/17 05:39 Cholesterol 146 mg/dL (<200) 12/18/17 06:50 LDL Cholesterol Direct 82 mg/dL (75-193) 12/12/17 09:30 HDL Cholesterol 39 mg/dL (23-92) 12/12/17 09:30 Vitamin B12 1546 pg/mL (232-1245) H 12/12/17 09:30 Folic Acid 12.3 ng/mL (>3.0) 12/12/17 09:30 Free T4 1.23 ng/dL (0.82-1.77) 12/12/17 09:30 Free T3 1.7 pg/mL (2.0-4.4) L 12/12/17 09:30 TSH 1.64 uIU/ml (0.34-5.60) 12/12/17 09:30 Stool Occult Blood NEGATIVE (NEGATIVE) 12/21/17 10:30 Rheumatoid Factor 16.1 IU/mL (0.0-13.9) H 12/15/17 13:10 ACOSTA Screen Negative 12/12/17 09:30 ANCA Screen SEE REF REPORT 12/12/17 09:30 Proteinase 3 (PR3) SEE REF. LAB REPORT 12/12/17 09:30 Anti-Myeloperoxidase SEE REF. LAB REPORT 12/12/17 09:30 Anti-Ribosomal Ab <0.2 12/12/17 09:30 Chromatin Antibody SEE REF. LAB REPORT 12/12/17 09:30 S.cerevisiae IgG Ab SEE REF. LAB REPORT 12/12/17 09:30 S.cerevisiae IgA Ab SEE REF. LAB REPORT 12/12/17 09:30 Blood Type O NEGATIVE 12/15/17 13:10 Antibody Screen NEGATIVE 12/15/17 13:10 Crossmatch See Detail 12/15/17 13:10 - Physical Exam Vitals and I&O: Vital Signs Temp 97.8 F 12/21/17 17:03 Pulse 101 12/21/17 17:03 Resp 20 12/21/17 17:03 BP 123/66 12/21/17 17:03 Pulse Ox 93 12/21/17 17:03 Intake & Output 12/20/17 12/21/17 12/21/17 18:59 06:59 18:59 Intake Total 1550 Balance 1550 Weight (lbs) 81.238 kg Intake: Intake, IV Amount 1550 Levofloxacin 500mg/100mL 100 500 mg In 100 ml @ 100 mls/hr IV Q24HR DARIANA Rx#: [id number] Multivitamin Inj 10 ml In 1450 Amino Acids 4.25% /Dext 10% 1,440 ml @ 60 mls/hr IV .Q24H [facility] Rx#: [id number] Other: Stool Characteristics Brown Brown Active Medications: Current Medications Albuterol Sulfate (Albuterol 2.5mg/3ml Neb Ud) 2.5 mg HHN Q4HRT PRN PRN Reason: Shortness of Breath or Wheeze Stop: 02/09/18 13:17 Last Admin: 12/20/17 23:14 Dose: 2.5 mg Albuterol/Ipratropium (Duoneb Neb) 3 ml HHN [id number] [facility] Stop: 02/10/18 06:59 Last Admin: 12/21/17 15:27 Dose: 3 ml Budesonide (Pulmicort) 0.5 mg HHN BIDRT DARIANA Stop: 02/10/18 06:59 Last Admin: 12/21/17 07:26 Dose: 0.5 mg Furosemide (Lasix) 40 mg IVP DAILY DARIANA Stop: 02/17/18 08:59 Last Admin: 12/21/17 08:32 Dose: 40 mg Levofloxacin (Levaquin Pb) 500 mg in 100 mls @ 100 mls/hr IV Q24HR DARIANA Stop: 02/15/18 08:59 Last Admin: 12/21/17 08:32 Dose: 100 mls/hr Multivitamins/Minerals 10 ml/ (Amino Acids) 1,450 mls @ 60 mls/hr IV .Q24H DARIANA Stop: 01/15/18 14:59 Last Admin: 12/20/17 20:17 Dose: 60 mls/hr Insulin Aspart (Novolog Insulin Sliding Scale) 0 units SUBQ ACHS DARIANA PRN Reason: Protocol Stop: 02/09/18 16:29 Last Admin: 12/21/17 13:00 Dose: 6 units Mirtazapine (Remeron) 7.5 mg PO HS DARIANA PRN Reason: Protocol Stop: 02/10/18 20:59 Last Admin: 12/20/17 20:19 Dose: 7.5 mg Miscellaneous (Probiotic Screen) 1 [facility] PRN PRN PRN Reason: PROTOCOL Stop: 02/10/18 15:20 Miscellaneous (Ppn Per Pharmacy) 1 [facility] PRN PRN PRN Reason: PROTOCOL Stop: 02/15/18 14:20 Pantoprazole Sodium (Protonix) 40 mg IVP DAILY DARIANA Stop: 02/15/18 08:59 Last Admin: 12/21/17 08:32 Dose: 40 mg Potassium Chloride (Klor-Con) 20 meq PO DAILY DARIANA Stop: 02/17/18 08:59 Last Admin: 12/21/17 08:31 Dose: 20 meq General: Alert, Oriented x3, No acute distress HEENT: Atraumatic, PERRLA, EOMI Neck: Supple Cardiovascular: Regular rate Lungs: Other (OCC RHONCHI) Abdomen: Bowel sounds, Soft, no Distended, no Obese Extremities: no Clubbing, no Cyanosis Neurological: Normal speech - Procedures Procedures: Procedures Procedure Code Date BLOOD TRANSFUSION SERVICE 06995 12/11/17 TRANSFUSE NONAUT RED BLOOD CELLS IN PERIPH VEIN, PERC 75193R9 12/11/17 Assessment/Plan - Assessment Assessment: moderate malnutrition chronic interstitial lung disease/pulmonary fibrosis CHF cellulitis to lower extremity psychosis dementia COPD/emphysema asthma HTN DM chronic anemia r/o GIB h/o malignant melanoma w/ lymph node dissection of the L groin left LE edema Elevated Rheimatoid factor elevated ESR r/o SLE will check ACOSTA malnutrition/dehydration ... poor PO intake. hyperkalemia hyperglycemia secondary to IV steroids. hypercapnia improved on BiPaP. hypophosphatemia - Plan Plan: see orders Doppler US venous to the Left LE ACOSTA, uric acid, RA pending continue Azithromycin IV and rocephin IV anemia ... will order type and screen 2 units and transfused 2 units packed RBC' s start solumedrol 40mg IV q8 Will DC TPN. will add Lasix 40mg IV daily and KCL 20meq PO daily. will order Phoslo PO Nutritional Asmnt/Malnutr-PDOC - Dietary Evaluation Malnutrition Findings (Please click <Entered> for more info): Nutritional Asmnt/Malnutrition Start: 12/17/17 16: 15 Text: Status: Complete Freq: Document 12/17/17 16:15 HEN (Rec: 12/17/17 16:27 HENG [email or web address]) Nutritional Asmnt/Malnutrition Patient General Information Nutritional Screening Moderate Risk Diagnosis pulmonary fibrosis, acute resp failure Pertinent Medical Hx/Surgical Hx HTN, asthma/COPD, depression, melanoma, DM Subjective Information Pt seen lying in bed on bipap mask. Per record PO intake 0- 50%. RN reported pt had poor PO intake d/t weakness and MD ordered PPN will start soon. Current Diet Order/ Nutrition Support CCHO-60gm Pertinent Medications D5-0.9ns, novolog, levaquin, remeron, protonix Pertinent Labs 12/17 Na 136, K 5.4, Cl 99, BUN 19, Cr 0.9, glucose 209, POC 206-221 Nutritional Hx/Data Height 1.78 m Height (Calculated Centimeters) 177.8 Current Weight (lbs) 78.018 kg Weight (Calculated Kilograms) 78.0 Weight (Calculated Grams) 18397.9 Body Mass Index (BMI) 24.7 GI Symptoms GI Symptoms None Last BM 12/16 Difficult in: None Skin Integrity/Comment: reddened to sacral coccyx buttocks, left leg, left arm Estimated Nutritional Goals BEE in Kcals: Using Current wt Calories/Kcals/Kg 25-30 Kcals Calculated 3450-6788 Protein: Using Current wt Protein g/k-1.2 Protein Calculated 78-94 Fluid: ml 1950-2340ml (1ml/kcal) Nutritional Problem 1. Problem Problem inadequate food intake Etiology weakness, poor appetite Signs/Symptoms: PO intake <50%, need for PPN Intervention/Recommendation Comments 1. Start PPN. Monitor intake from nutrition support. 2. Monitor wt, labs and skin integrity 3. F/U as high risk in 2-3 days, 3/2-3/3 Expected Outcomes/Goals Expected Outcomes/Goals 1. PO intake to meet at least 75% of nutritional needs from nutrition support. 2. Wt stability, skin to remain intact, labs to approach WNL.
--- NOTE | 2017-12-21 22:35 | Progress Notes ---
DATE: 12/21/2017 Case was discussed with staff of the patient, reviewed records. The patient is much better. He is alert. He seems to be relaxed. His depression is improving. Sleeping well, eating well. His physical condition is improving, compliant with the medication with no side effects. He denies any current intent to harm himself or anybody. No longer irritable. Thank you very much for allowing me to participate in the care of this most interesting gentleman. JOB# [id number]
--- NOTE | 2017-12-22 00:11 | Progress Notes ---
DATE: 12/21/2017 PULMONARY PROGRESS NOTE PROBLEM LIST: 1. Acute respiratory failure, improving. 2. 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 SYMPTOMS: Nil. The patient is quite lucid, awake, alert, oriented, not in acute respiratory distress. He told that he has some kind of lung condition, though he could not tell ____. Denies of any other related symptomatology. PHYSICAL EXAMINATION: VITAL SIGNS: The patient's recorded vitals: Temperature is 97.9, blood pressure 127/62, respirations 20, saturation 93% on 3 liters per minute. NECK: Veins not visualized. CHEST: Shows diminished air entry with occasional rhonchi. HEART: Regular. ABDOMEN: Soft, nontender. LABORATORY DATA: The patient's current laboratory studies show electrolytes are okay. CO2 content is 37 and sugar is slightly higher side. ABG refused. ASSESSMENT: The patient is clinically stable and improving. PLANS AND SUGGESTIONS: We will go ahead and continue current treatment. Pulmonary should be okay to discharge in next day or two, consideration for continue oxygen therapy at home including possibly BiPAP for respiratory failure. JOB# [id number]
[2017-12-22 06:23] LABS: ALB/GLOB RATIO 0.9 (1.0-1.8); ALBUMIN 2.5 gm/dL (4.2-5.5); ALKALINE PHOSPHATASE 99 U/L (34-104); ANION GAP 2.3 (7.0-16.0); BILIRUBIN,TOTAL 0.3 mg/dL (0.3-1.0); BUN - UREA NITROGEN 38 mg/dL (7-25); CALCIUM SERUM 8.9 mg/dL (8.6-10.3); CHLORIDE 99 mEq/L (98-107); PHOSPHOROUS 2.1 mg/dL (2.5-5.0); POTASSIUM SERUM 4.7 mEq/L (3.5-5.1); SGOT 23 U/L (13-39); SGPT/ALT 34 U/L (7-52); SODIUM SERUM 137 mEq/L (136-145); TOTAL PROTEIN,SERUM 5.3 gm/dL (6.0-8.3)
[2017-12-22 06:25] LABS: CARBON DIOXIDE 40.4 mEq/L (21.0-31.0); MEAN CELL VOLUME 92.1 fl (80-99); MEAN CORPUSCULAR HEMOGLOBIN 30.7 pg (27.0-31.0); MEAN CORPUSCULAR HGB CONC 33.3 pg (28.0-36.0); MEAN PLATELET VOLUME 6.2 fl; RED BLOOD COUNT 3.26 Mil/cmm (3.80-5.80); RED CELL DISTRIBUTION WIDTH 17.4 % (11.5-20.0)
[2017-12-22 06:26] LABS: GLUCOSE 118 mg/dL (70-105)
[2017-12-22 06:34] LABS: PLATELET COUNT 174 Th/cmm (150-400); WHITE BLOOD COUNT 7.1 Th/cmm (4.8-10.8)
[2017-12-22 06:35] LABS: MANUAL DIFF REQUIRED? YES
[2017-12-22] MEDS: INSULIN ASPART SLIDING SCALE 100 UNITS/ML UNIT SUBQ SCH ×4 (06:44→20:46)
[2017-12-22] MEDS: Budesonide 0.5 Mg/2 mL Ud HHN SCH ×2 (07:42→19:56)
[2017-12-22] MEDS: Albuterol/Ipratropium Neb 3 ML AERS HHN SCH ×3 (07:42→19:56)
--- NOTE | 2017-12-22 08:14 | General Progress Note ---
Subjective - Review of Systems Service Date: 12/22/17 Subjective: Patient appears better today. More awake and alert. Responding to questions more appropriately. Patient resting confortably in bed. Patient's Hb 10. No overt bleeding. Eating better (apr 75-100%) meals. No need for PPN. Will DC. Cellulitis to the left lower ext on Levofloxacin IV. Discussed with son regarding patient's condition. Patient's son would like to keep patient close to home. Objective - Results Result Diagrams: 12/22/17 05:32 12/22/17 05:32 Recent Labs: Laboratory Last Values WBC 7.1 Th/cmm (4.8-10.8) D 12/22/17 05:32 RBC 3.26 Mil/cmm (3.80-5.80) L 12/22/17 05:32 Hgb 10.0 gm/dL (12-16) L 12/22/17 05:32 Hct 30.0 % (41.0-60) L 12/22/17 05:32 MCV 92.1 fl (80-99) 12/22/17 05:32 MCH 30.7 pg (27.0-31.0) 12/22/17 05:32 MCHC Differential 33.3 pg (28.0-36.0) 12/22/17 05:32 RDW 17.4 % (11.5-20.0) 12/22/17 05:32 Plt Count 174 Th/cmm (150-400) D 12/22/17 05:32 MPV 6.2 fl 12/22/17 05:32 Neutrophils % 69.9 % (40.0-80.0) 12/16/17 21:00 Band Neutrophils % 4 % (0-10) 12/18/17 06:50 Lymphocytes % 10.6 % (20.0-50.0) L 12/16/17 21:00 Monocytes % 13.9 % (2.0-10.0) H 12/16/17 21:00 Eosinophils % 4.8 % (0.0-5.0) 12/16/17 21:00 Basophils % 0.8 % (0.0-2.0) 12/16/17 21:00 Neutrophils (Manual) 83 % (40-80) H 12/18/17 06:50 Lymphocytes 5 % (20-50) L 12/18/17 06:50 Monocytes 8 % (2-10) 12/18/17 06:50 Eosinophils 8 % (0-5) H 12/16/17 05:40 Basophils 1 % (0-3) 12/16/17 05:40 Hypochromia 1+ 12/16/17 05:40 Platelet Estimate ADEQUATE (NORMAL) 12/18/17 06:50 Polychromasia 1+ 12/16/17 05:40 Anisocytosis 1+ 12/18/17 06:50 Tear Drop Cells 1+ 12/16/17 05:40 Ovalocytes 1+ 12/16/17 05:40 ESR > 105 mm/hr (0-20) H 12/12/17 09:30 Total Retics Counted 2.7 % (0.5-1.5) H 12/12/17 09:30 Absolute Retic 67.2 Th/cmm 12/12/17 09:30 Corrected Retic Count 1.4 % (0.5-1.5) 12/12/17 09:30 Lupus Anticoag aPTT 40.5 sec (0.0-51.9) 12/12/17 09:30 dRVVT Screen 57.2 sec (0.0-47.0) H 12/12/17 09:30 dRVVT Confirm Seconds 1.2 ratio (0.8-1.2) 12/12/17 09:30 dRVVT Mix 47.2 sec (0.0-47.0) H 12/12/17 09:30 Lupus Anticoag Interp Comment: 12/12/17 09:30 Specimen Source Arterial 12/17/17 09:55 Sample Site RB 12/17/17 09:55 pH 7.34 (7.35-7.45) L 12/17/17 09:55 pCO2 77.0 mmHg (35.0-45.0) H* 12/17/17 09:55 pO2 81.0 mmHg (80.0-100.0) 12/17/17 09:55 HCO3 34.6 mEq/L (20.0-26.0) H 12/17/17 09:55 Base Excess 12.5 mEq/L (-3.0-3.0) H 12/17/17 09:55 O2 Saturation 95.0 % (92.0-100.0) 12/17/17 09:55 Lan Test NA 12/17/17 09:55 Vent Rate NA 12/17/17 09:55 Inspired O2 50 12/17/17 09:55 Tidal Volume NA 12/17/17 09:55 PEEP NA 12/17/17 09:55 Pressure (ins/psv/peep) NA 12/17/17 09:55 Critical Value E.MCGOWAN 12/17/17 09:55 Sodium 137 mEq/L (136-145) 12/22/17 05:32 Potassium 4.7 mEq/L (3.5-5.1) 12/22/17 05:32 Chloride 99 mEq/L (98-107) 12/22/17 05:32 Carbon Dioxide 40.4 mEq/L (21.0-31.0) H 12/22/17 05:32 Anion Gap 2.3 (7.0-16.0) L 12/22/17 05:32 BUN 38 mg/dL (7-25) H 12/22/17 05:32 Creatinine 1.0 mg/dL (0.7-1.3) 12/22/17 05:32 Est GFR ( Amer) TNP 12/22/17 05:32 Est GFR (Non-Af Amer) TNP 12/22/17 05:32 BUN/Creatinine Ratio 38.0 12/22/17 05:32 Glucose 118 mg/dL (70-105) H D 12/22/17 05:32 POC Glucose 123 MG/DL (70 - 105) H 12/22/17 05:28 Uric Acid 4.4 mg/dL (4.4-7.6) 12/15/17 13:10 Calcium 8.9 mg/dL (8.6-10.3) 12/22/17 05:32 Phosphorus 2.1 mg/dL (2.5-5.0) L 12/22/17 05:32 Magnesium 2.0 mg/dL (1.9-2.7) 12/22/17 05:32 Iron 27 ug/dL (38-169) L 12/12/17 09:30 TIBC 206 ug/dL (250-450) L 12/12/17 09:30 Iron Saturation 13 % (15-55) L 12/12/17 09:30 Unsaturated IBC 179 ug/dL (111-343) 12/12/17 09:30 Ferritin 184 ng/mL (30-400) 12/12/17 09:30 Total Bilirubin 0.3 mg/dL (0.3-1.0) 12/22/17 05:32 Direct Bilirubin 0.14 mg/dL (0.0-0.2) 12/12/17 09:30 AST 23 U/L (13-39) 12/22/17 05:32 ALT 34 U/L (7-52) 12/22/17 05:32 Alkaline Phosphatase 99 U/L (34-104) 12/22/17 05:32 Ammonia 38 umol/L (16-53) 12/15/17 13:10 Lactate Dehydrogenase 119 U/L (140-271) L 12/12/17 09:30 B-Natriuretic Peptide 79.4 pg/mL (5.0-100.0) 12/19/17 06:20 Total Protein 5.3 gm/dL (6.0-8.3) L 12/22/17 05:32 Albumin 2.5 gm/dL (4.2-5.5) L 12/22/17 05:32 Globulin 2.8 gm/dL 12/22/17 05:32 Albumin/Globulin Ratio 0.9 (1.0-1.8) L 12/22/17 05:32 Prealbumin 15 mg/dL (9-32) 12/20/17 05:39 Triglycerides 107 mg/dL (<150) 12/20/17 05:39 Cholesterol 146 mg/dL (<200) 12/18/17 06:50 LDL Cholesterol Direct 82 mg/dL (75-193) 12/12/17 09:30 HDL Cholesterol 39 mg/dL (23-92) 12/12/17 09:30 Vitamin B12 1546 pg/mL (232-1245) H 12/12/17 09:30 Folic Acid 12.3 ng/mL (>3.0) 12/12/17 09:30 Free T4 1.23 ng/dL (0.82-1.77) 12/12/17 09:30 Free T3 1.7 pg/mL (2.0-4.4) L 12/12/17 09:30 TSH 1.64 uIU/ml (0.34-5.60) 12/12/17 09:30 Stool Occult Blood NEGATIVE (NEGATIVE) 12/21/17 10:30 Rheumatoid Factor 16.1 IU/mL (0.0-13.9) H 12/15/17 13:10 ACOSTA Screen Negative 12/12/17 09:30 ANCA Screen SEE REF REPORT 12/12/17 09:30 Proteinase 3 (PR3) SEE REF. LAB REPORT 12/12/17 09:30 Anti-Myeloperoxidase SEE REF. LAB REPORT 12/12/17 09:30 Anti-Ribosomal Ab <0.2 12/12/17 09:30 Chromatin Antibody SEE REF. LAB REPORT 12/12/17 09:30 S.cerevisiae IgG Ab SEE REF. LAB REPORT 12/12/17 09:30 S.cerevisiae IgA Ab SEE REF. LAB REPORT 12/12/17 09:30 Blood Type O NEGATIVE 12/15/17 13:10 Antibody Screen NEGATIVE 12/15/17 13:10 Crossmatch See Detail 12/15/17 13:10 - Physical Exam Vitals and I&O: Vital Signs Temp 97.6 F 12/22/17 04:49 Pulse 97 12/22/17 04:49 Resp 20 12/22/17 04:49 BP 120/67 12/22/17 04:49 Pulse Ox 98 12/22/17 04:49 Intake & Output 12/21/17 12/22/17 12/22/17 18:59 06:59 18:59 Intake Total 475 Output Total 10 Balance 465 Weight (lbs) 81.193 kg Intake: Oral 475 Output: Emesis 10 Other: # Voids 2 # Bowel Movements 0 Stool Characteristics Brown Brown Active Medications: Current Medications Albuterol Sulfate (Albuterol 2.5mg/3ml Neb Ud) 2.5 mg HHN Q4HRT PRN PRN Reason: Shortness of Breath or Wheeze Stop: 02/09/18 13:17 Last Admin: 12/20/17 23:14 Dose: 2.5 mg Albuterol/Ipratropium (Duoneb Neb) 3 ml HHN [id number] [facility] Stop: 02/10/18 06:59 Last Admin: 12/22/17 07:42 Dose: 3 ml Budesonide (Pulmicort) 0.5 mg HHN BIDRT [facility] Stop: 02/10/18 06:59 Last Admin: 12/22/17 07:42 Dose: 0.5 mg Calcium Acetate (Phoslo) 667 mg PO TIDWM DARIANA Stop: 02/20/18 07:59 Furosemide (Lasix) 40 mg IVP DAILY DARIANA Stop: 02/17/18 08:59 Last Admin: 12/21/17 08:32 Dose: 40 mg Levofloxacin (Levaquin Pb) 500 mg in 100 mls @ 100 mls/hr IV Q24HR DARIANA Stop: 02/15/18 08:59 Last Admin: 12/21/17 08:32 Dose: 100 mls/hr Insulin Aspart (Novolog Insulin Sliding Scale) 0 units SUBQ ACHS DARIANA PRN Reason: Protocol Stop: 02/09/18 16:29 Last Admin: 12/22/17 06:44 Dose: Not Given Mirtazapine (Remeron) 7.5 mg PO HS DARIANA PRN Reason: Protocol Stop: 02/10/18 20:59 Last Admin: 12/21/17 22:00 Dose: 7.5 mg Miscellaneous (Probiotic Screen) 1 ea PRN PRN PRN Reason: PROTOCOL Stop: 02/10/18 15:20 Miscellaneous (Ppn Per Pharmacy) 1 ea PRN PRN PRN Reason: PROTOCOL Stop: 02/20/18 05:46 Pantoprazole Sodium (Protonix) 40 mg IVP DAILY DARIANA Stop: 02/15/18 08:59 Last Admin: 12/21/17 08:32 Dose: 40 mg Potassium Chloride (Klor-Con) 20 meq PO DAILY DARIANA Stop: 02/17/18 08:59 Last Admin: 12/21/17 08:31 Dose: 20 meq General: Alert, Oriented x3, No acute distress HEENT: Atraumatic, PERRLA, EOMI Neck: Supple Cardiovascular: Regular rate Lungs: Other (OCC RHONCHI) Abdomen: Bowel sounds, Soft, no Distended, no Obese Extremities: no Clubbing, no Cyanosis Neurological: Normal speech - Procedures Procedures: Procedures Procedure Code Date BLOOD TRANSFUSION SERVICE 81509 12/11/17 TRANSFUSE NONAUT RED BLOOD CELLS IN PERIPH VEIN, PERC 14298Q0 12/11/17 Assessment/Plan - Assessment Assessment: moderate malnutrition chronic interstitial lung disease/pulmonary fibrosis CHF cellulitis to lower extremity psychosis dementia COPD/emphysema asthma HTN DM chronic anemia r/o GIB h/o malignant melanoma w/ lymph node dissection of the L groin left LE edema Elevated Rheimatoid factor elevated ESR r/o SLE will check ACOSTA malnutrition/dehydration ... poor PO intake. hyperkalemia hyperglycemia secondary to IV steroids. hypercapnia improved on BiPaP. hypophosphatemia - Plan Plan: see orders Doppler US venous to the Left LE ACOSTA, uric acid, RA pending continue Azithromycin IV and rocephin IV anemia ... will order type and screen 2 units and transfused 2 units packed RBC' s start solumedrol 40mg IV q8 Will DC TPN. will add Lasix 40mg IV daily and KCL 20meq PO daily. will order Phoslo PO discharge planning Nutritional Asmnt/Malnutr-PDOC - Dietary Evaluation Malnutrition Findings (Please click <Entered> for more info): Nutritional Asmnt/Malnutrition Start: 12/17/17 16: 15 Text: Status: Complete Freq: Document 12/17/17 16:15 HEN (Rec: 12/17/17 16:27 [facility] Nutritional Asmnt/Malnutrition Patient General Information Nutritional Screening Moderate Risk Diagnosis pulmonary fibrosis, acute resp failure Pertinent Medical Hx/Surgical Hx HTN, asthma/COPD, depression, melanoma, DM Subjective Information Pt seen lying in bed on bipap mask. Per record PO intake 0- 50%. RN reported pt had poor PO intake d/t weakness and MD ordered PPN will start soon. Current Diet Order/ Nutrition Support CCHO-60gm Pertinent Medications D5-0.9ns, novolog, levaquin, remeron, protonix Pertinent Labs 12/17 Na 136, K 5.4, Cl 99, BUN 19, Cr 0.9, glucose 209, POC 206-221 Nutritional Hx/Data Height 1.78 m Height (Calculated Centimeters) 177.8 Current Weight (lbs) 78.018 kg Weight (Calculated Kilograms) 78.0 Weight (Calculated Grams) 67182.9 Body Mass Index (BMI) 24.7 GI Symptoms GI Symptoms None Last BM 12/16 Difficult in: None Skin Integrity/Comment: reddened to sacral coccyx buttocks, left leg, left arm Estimated Nutritional Goals BEE in Kcals: Using Current wt Calories/Kcals/Kg 25-30 Kcals Calculated 6622-0929 Protein: Using Current wt Protein g/k-1.2 Protein Calculated 78-94 Fluid: ml 1950-2340ml (1ml/kcal) Nutritional Problem 1. Problem Problem inadequate food intake Etiology weakness, poor appetite Signs/Symptoms: PO intake <50%, need for PPN Intervention/Recommendation Comments 1. Start PPN. Monitor intake from nutrition support. 2. Monitor wt, labs and skin integrity 3. F/U as high risk in 2-3 days, 3/2-3/3 Expected Outcomes/Goals Expected Outcomes/Goals 1. PO intake to meet at least 75% of nutritional needs from nutrition support. 2. Wt stability, skin to remain intact, labs to approach WNL.
[2017-12-22] MEDS: Potassium Chloride 20 mEq ER Tab PO SCH (08:29)
[2017-12-22 08:36] LABS: BAND NEUTROPHILE 2 % (0-10); LYMPHOCYTE 5 % (20-50); MONOCYTE 10 % (2-10); NEUTROPHILS 83 % (40-80); TOTAL CELLS COUNTED 100
[2017-12-22 08:37] LABS: PLATELET ESTIMATE ADEQUATE (NORMAL)
[2017-12-22] MEDS: Levofloxacin 500mg/100mL 500 MG/100 ML BAG IV SCH (09:13)
[2017-12-22] MEDS ORDERED: Sodium Phosphate 15 MMOLE in Sodium Chloride 0.9% 250 ML IV ONE (10:00)
--- NOTE | 2017-12-22 12:47 | Diagnostic Imaging Report ---
Bilateral lower extremity arterial Doppler study HISTORY: Bilateral lower extremity edema COMPARISON: None Technique: Longitudinal and transverse sonographic images of the bilateral lower extremity arteries were obtained with doppler analysis. FINDINGS: Exam of the right side demonstrates mild to moderate atherosclerotic vascular disease. There is biphasic flow extending from the right common femoral artery to the right tibia posterior artery. There is monophasic flow the right dorsalis pedis artery. No evidence of occlusion. Right YOSELIN: 1 Exam of the left side demonstrates [id number] atherosclerotic vascular disease with primarily biphasic flow seen throughout the left lower extremity venous system. No evidence of occlusion. Left YOSELIN was not readily performed due to patient's left-sided vascular catheter. IMPRESSION: Mild to moderate atherosclerotic vascular disease bilaterally. No sonographic evidence of occlusion. Please correlate clinically.
--- NOTE | 2017-12-22 22:25 | Progress Notes ---
DATE: 12/22/2017 Case was discussed with staff of the patient, reviewed records. The patient continues to be medically not stable. Sleeping better, eating better. His affect is more animated. He denies any self intent to harm himself or anybody. He denies any auditory or visual hallucinations, paranoia. Denies having any side effects. He is on Remeron, seems to have worked well for him so far. He is no longer angry. We will continue to work with the patient in group therapy, milieu therapy, adjust medication as needed. The patient needs to follow with the psychiatrist upon discharge. JOB# [id number]
--- NOTE | 2017-12-22 23:32 | Progress Notes ---
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 SYMPTOMS: Nil, feeling okay. No specific new symptoms. His discharge planning has been going on. PHYSICAL EXAMINATION: VITAL SIGNS: T-max 97.6, blood pressure 156/77, saturation 95%. NECK: Veins not visualized. CHEST: Shows diminished air entry with occasional rhonchi. HEART: Regular. ABDOMEN: Soft, nontender. ASSESSMENT: The patient is clinically stable, improving. PLANS AND SUGGESTIONS: Continue current treatment. Discussed with Dr. Fleming yesterday. Okay for discharge with low-flow oxygen, possibly might need a Trilogy down the line. JOB# [id number]
[2017-12-23 07:25] LABS: ALB/GLOB RATIO 0.9 (1.0-1.8); ALBUMIN 2.4 gm/dL (4.2-5.5); ALKALINE PHOSPHATASE 98 U/L (34-104); BILIRUBIN,TOTAL 0.4 mg/dL (0.3-1.0); BUN - UREA NITROGEN 31 mg/dL (7-25); CALCIUM SERUM 9.2 mg/dL (8.6-10.3); CHLORIDE 97 mEq/L (98-107); GLUCOSE 127 mg/dL (70-105); MAGNESIUM 1.9 mg/dL (1.9-2.7); POTASSIUM SERUM 4.3 mEq/L (3.5-5.1); SGOT 19 U/L (13-39); SGPT/ALT 30 U/L (7-52); SODIUM SERUM 137 mEq/L (136-145); TOTAL PROTEIN,SERUM 5.1 gm/dL (6.0-8.3)
[2017-12-23 07:47] LABS: ANION GAP 3.4 (7.0-16.0); CARBON DIOXIDE 40.9 mEq/L (21.0-31.0)
[2017-12-23] MEDS: Albuterol/Ipratropium Neb 3 ML AERS HHN SCH ×4 (08:02→19:21)
[2017-12-23] MEDS: Budesonide 0.5 Mg/2 mL Ud HHN SCH ×2 (08:19→19:22)
--- NOTE | 2017-12-23 08:23 | General Progress Note ---
Subjective - Review of Systems Service Date: 12/23/17 Subjective: Patient appears better today. More awake and alert. Responding to questions more appropriately. Patient resting confortably in bed. blood sugars elevated Objective - Results Result Diagrams: 12/22/17 05:32 12/23/17 05:40 Recent Labs: Laboratory Last Values WBC 7.1 Th/cmm (4.8-10.8) D 12/22/17 05:32 RBC 3.26 Mil/cmm (3.80-5.80) L 12/22/17 05:32 Hgb 10.0 gm/dL (12-16) L 12/22/17 05:32 Hct 30.0 % (41.0-60) L 12/22/17 05:32 MCV 92.1 fl (80-99) 12/22/17 05:32 MCH 30.7 pg (27.0-31.0) 12/22/17 05:32 MCHC Differential 33.3 pg (28.0-36.0) 12/22/17 05:32 RDW 17.4 % (11.5-20.0) 12/22/17 05:32 Plt Count 174 Th/cmm (150-400) D 12/22/17 05:32 MPV 6.2 fl 12/22/17 05:32 Neutrophils % 69.9 % (40.0-80.0) 12/16/17 21:00 Band Neutrophils % 2 % (0-10) 12/22/17 05:32 Lymphocytes % 10.6 % (20.0-50.0) L 12/16/17 21:00 Monocytes % 13.9 % (2.0-10.0) H 12/16/17 21:00 Eosinophils % 4.8 % (0.0-5.0) 12/16/17 21:00 Basophils % 0.8 % (0.0-2.0) 12/16/17 21:00 Neutrophils (Manual) 83 % (40-80) H 12/22/17 05:32 Lymphocytes 5 % (20-50) L 12/22/17 05:32 Monocytes 10 % (2-10) 12/22/17 05:32 Eosinophils 8 % (0-5) H 12/16/17 05:40 Basophils 1 % (0-3) 12/16/17 05:40 Hypochromia 1+ 12/16/17 05:40 Platelet Estimate ADEQUATE (NORMAL) 12/22/17 05:32 Polychromasia 1+ 12/16/17 05:40 Anisocytosis 1+ 12/18/17 06:50 Tear Drop Cells 1+ 12/16/17 05:40 Ovalocytes 1+ 12/16/17 05:40 ESR > 105 mm/hr (0-20) H 12/12/17 09:30 Total Retics Counted 2.7 % (0.5-1.5) H 12/12/17 09:30 Absolute Retic 67.2 Th/cmm 12/12/17 09:30 Corrected Retic Count 1.4 % (0.5-1.5) 12/12/17 09:30 Lupus Anticoag aPTT 40.5 sec (0.0-51.9) 12/12/17 09:30 dRVVT Screen 57.2 sec (0.0-47.0) H 12/12/17 09:30 dRVVT Confirm Seconds 1.2 ratio (0.8-1.2) 12/12/17 09:30 dRVVT Mix 47.2 sec (0.0-47.0) H 12/12/17 09:30 Lupus Anticoag Interp Comment: 12/12/17 09:30 Specimen Source Arterial 12/17/17 09:55 Sample Site RB 12/17/17 09:55 pH 7.34 (7.35-7.45) L 12/17/17 09:55 pCO2 77.0 mmHg (35.0-45.0) H* 12/17/17 09:55 pO2 81.0 mmHg (80.0-100.0) 12/17/17 09:55 HCO3 34.6 mEq/L (20.0-26.0) H 12/17/17 09:55 Base Excess 12.5 mEq/L (-3.0-3.0) H 12/17/17 09:55 O2 Saturation 95.0 % (92.0-100.0) 12/17/17 09:55 Lan Test NA 12/17/17 09:55 Vent Rate NA 12/17/17 09:55 Inspired O2 50 12/17/17 09:55 Tidal Volume NA 12/17/17 09:55 PEEP NA 12/17/17 09:55 Pressure (ins/psv/peep) NA 12/17/17 09:55 Critical Value E.MCGOWAN 12/17/17 09:55 Sodium 137 mEq/L (136-145) 12/23/17 05:40 Potassium 4.3 mEq/L (3.5-5.1) 12/23/17 05:40 Chloride 97 mEq/L (98-107) L 12/23/17 05:40 Carbon Dioxide 40.9 mEq/L (21.0-31.0) H 12/23/17 05:40 Anion Gap 3.4 (7.0-16.0) L 12/23/17 05:40 BUN 31 mg/dL (7-25) H 12/23/17 05:40 Creatinine 1.0 mg/dL (0.7-1.3) 12/23/17 05:40 Est GFR ( Amer) TNP 12/23/17 05:40 Est GFR (Non-Af Amer) TNP 12/23/17 05:40 BUN/Creatinine Ratio 31.0 12/23/17 05:40 Glucose 127 mg/dL (70-105) H 12/23/17 05:40 POC Glucose 130 MG/DL (70 - 105) H 12/23/17 06:22 Uric Acid 4.4 mg/dL (4.4-7.6) 12/15/17 13:10 Calcium 9.2 mg/dL (8.6-10.3) 12/23/17 05:40 Phosphorus 3.0 mg/dL (2.5-5.0) 12/23/17 05:40 Magnesium 1.9 mg/dL (1.9-2.7) 12/23/17 05:40 Iron 27 ug/dL (38-169) L 12/12/17 09:30 TIBC 206 ug/dL (250-450) L 12/12/17 09:30 Iron Saturation 13 % (15-55) L 12/12/17 09:30 Unsaturated IBC 179 ug/dL (111-343) 12/12/17 09:30 Ferritin 184 ng/mL (30-400) 12/12/17 09:30 Total Bilirubin 0.4 mg/dL (0.3-1.0) 12/23/17 05:40 Direct Bilirubin 0.14 mg/dL (0.0-0.2) 12/12/17 09:30 AST 19 U/L (13-39) 12/23/17 05:40 ALT 30 U/L (7-52) 12/23/17 05:40 Alkaline Phosphatase 98 U/L (34-104) 12/23/17 05:40 Ammonia 38 umol/L (16-53) 12/15/17 13:10 Lactate Dehydrogenase 119 U/L (140-271) L 12/12/17 09:30 B-Natriuretic Peptide 79.4 pg/mL (5.0-100.0) 12/19/17 06:20 Total Protein 5.1 gm/dL (6.0-8.3) L 12/23/17 05:40 Albumin 2.4 gm/dL (4.2-5.5) L 12/23/17 05:40 Globulin 2.7 gm/dL 12/23/17 05:40 Albumin/Globulin Ratio 0.9 (1.0-1.8) L 12/23/17 05:40 Prealbumin 15 mg/dL (9-32) 12/20/17 05:39 Triglycerides 107 mg/dL (<150) 12/20/17 05:39 Cholesterol 146 mg/dL (<200) 12/18/17 06:50 LDL Cholesterol Direct 82 mg/dL (75-193) 12/12/17 09:30 HDL Cholesterol 39 mg/dL (23-92) 12/12/17 09:30 Vitamin B12 1546 pg/mL (232-1245) H 12/12/17 09:30 Folic Acid 12.3 ng/mL (>3.0) 12/12/17 09:30 Free T4 1.23 ng/dL (0.82-1.77) 12/12/17 09:30 Free T3 1.7 pg/mL (2.0-4.4) L 12/12/17 09:30 TSH 1.64 uIU/ml (0.34-5.60) 12/12/17 09:30 Stool Occult Blood NEGATIVE (NEGATIVE) 12/21/17 10:30 Rheumatoid Factor 16.1 IU/mL (0.0-13.9) H 12/15/17 13:10 ACOSTA Screen Negative 02/23/18 09:30 ANCA Screen SEE REF REPORT 12/12/17 09:30 Proteinase 3 (PR3) SEE REF. LAB REPORT 12/12/17 09:30 Anti-Myeloperoxidase SEE REF. LAB REPORT 12/12/17 09:30 Anti-Ribosomal Ab <0.2 12/12/17 09:30 Chromatin Antibody SEE REF. LAB REPORT 12/12/17 09:30 S.cerevisiae IgG Ab SEE REF. LAB REPORT 12/12/17 09:30 S.cerevisiae IgA Ab SEE REF. LAB REPORT 12/12/17 09:30 Blood Type O NEGATIVE 12/15/17 13:10 Antibody Screen NEGATIVE 12/15/17 13:10 Crossmatch See Detail 12/15/17 13:10 - Physical Exam Vitals and I&O: Vital Signs Temp 97.4 F 12/23/17 04:00 Pulse 98 12/23/17 08:02 Resp 20 12/23/17 08:02 BP 123/66 12/23/17 04:00 Pulse Ox 96 12/23/17 08:02 Intake & Output 12/22/17 12/23/17 12/23/17 18:59 06:59 18:59 Intake Total 800 0 120 Balance 800 0 120 Weight (lbs) 81.193 kg 82.282 kg 82.282 kg Intake: Oral 800 0 120 Other: # Voids 3 3 4 # Bowel Movements 1 0 0 Stool Characteristics Soft Brown Active Medications: Current Medications Albuterol Sulfate (Albuterol 2.5mg/3ml Neb Ud) 2.5 mg HHN Q4HRT PRN PRN Reason: Shortness of Breath or Wheeze Stop: 02/09/18 13:17 Last Admin: 12/20/17 23:14 Dose: 2.5 mg Albuterol/Ipratropium (Duoneb Neb) 3 ml HHN [id number] [facility] Stop: 02/10/18 06:59 Last Admin: 12/23/17 08:02 Dose: 3 ml Budesonide (Pulmicort) 0.5 mg HHN BIDRT [facility] Stop: 02/10/18 06:59 Last Admin: 12/22/17 19:56 Dose: 0.5 mg Calcium Acetate (Phoslo) 667 mg PO TIDWM [facility] Stop: 02/20/18 07:59 Last Admin: 03/05/18 18:35 Dose: 667 mg Furosemide (Lasix) 40 mg IVP DAILY DARIANA Stop: 02/17/18 08:59 Last Admin: 12/22/17 08:29 Dose: 40 mg Levofloxacin (Levaquin Pb) 500 mg in 100 mls @ 100 mls/hr IV Q24HR [facility] Stop: 02/15/18 08:59 Last Admin: 12/22/17 09:13 Dose: 100 mls/hr Insulin Aspart (Novolog Insulin Sliding Scale) 0 units SUBQ ACHS DARIANA PRN Reason: Protocol Stop: 02/09/18 16:29 Last Admin: 12/22/17 20:46 Dose: Not Given Mirtazapine (Remeron) 7.5 mg PO HS DARIANA PRN Reason: Protocol Stop: 02/10/18 20:59 Last Admin: 12/22/17 20:46 Dose: 7.5 mg Miscellaneous (Probiotic Screen) 1 ea MC PRN PRN PRN Reason: PROTOCOL Stop: 02/10/18 15:20 Pantoprazole Sodium (Protonix) 40 mg IVP DAILY DARIANA Stop: 02/15/18 08:59 Last Admin: 12/22/17 08:29 Dose: 40 mg Potassium Chloride (Klor-Con) 20 meq PO DAILY DARIANA Stop: 02/17/18 08:59 Last Admin: 12/22/17 08:29 Dose: 20 meq General: Alert, Oriented x3, No acute distress HEENT: Atraumatic, PERRLA, EOMI Neck: Supple Cardiovascular: Regular rate Lungs: Other (OCC RHONCHI) Abdomen: Bowel sounds, Soft, no Distended, no Obese Extremities: no Clubbing, no Cyanosis Neurological: Normal speech - Procedures Procedures: Procedures Procedure Code Date BLOOD TRANSFUSION SERVICE 05094 12/11/17 TRANSFUSE NONAUT RED BLOOD CELLS IN PERIPH VEIN, [facility] [id number] 12/11/17 Assessment/Plan - Assessment Assessment: hypoalbuminemia/mild-moderate malnutrition chronic interstitial lung disease/pulmonary fibrosis cellulitis to left lower extremity Doppler US - DVT psychosis ... resolved. may be secondary to hypercapnia dementia HTN DM chronic anemia h/o malignant melanoma w/ lymph node dissection of the L groin arterial insufficiency to the lower extremities bilaterally L worse than R Elevated RA factor Elevated ESR ... may need outpatient Rheumatology workup hyperkalemia ... will check K+ level hyperglycemia secondary to IV steroids. hypercapnia improved on BiPaP. hypophosphatemia - Plan Plan: see orders Doppler US venous to the Left LE ACOSTA, uric acid, RA pending continue Azithromycin IV and rocephin IV anemia ... will order type and screen 2 units and transfused 2 units packed RBC' s hyperglycemia improved ... off steroids. off TPN. will add Lasix 40mg IV daily and KCL 20meq PO daily. will order Phoslo PO discharge planning Nutritional Asmnt/Malnutr-PDOC - Dietary Evaluation Malnutrition Findings (Please click <Entered> for more info): Nutritional Asmnt/Malnutrition Start: 12/17/17 16: 15 Text: Status: Complete Freq: Document 12/17/17 16:15 HEN (Rec: 12/17/17 16:27 LCHENG [email or web address]) Nutritional Asmnt/Malnutrition Patient General Information Nutritional Screening Moderate Risk Diagnosis pulmonary fibrosis, acute resp failure Pertinent Medical Hx/Surgical Hx HTN, asthma/COPD, depression, melanoma, DM Subjective Information Pt seen lying in bed on bipap mask. Per record PO intake 0- 50%. RN reported pt had poor PO intake d/t weakness and MD ordered PPN will start soon. Current Diet Order/ Nutrition Support CCHO-60gm Pertinent Medications D5-0.9ns, novolog, levaquin, remeron, protonix Pertinent Labs 12/17 Na 136, K 5.4, Cl 99, BUN 19, Cr 0.9, glucose 209, POC 206-221 Nutritional Hx/Data Height 1.78 m Height (Calculated Centimeters) 177.8 Current Weight (lbs) 78.018 kg Weight (Calculated Kilograms) 78.0 Weight (Calculated Grams) 31964.9 Body Mass Index (BMI) 24.7 GI Symptoms GI Symptoms None Last BM 12/16 Difficult in: None Skin Integrity/Comment: reddened to sacral coccyx buttocks, left leg, left arm Estimated Nutritional Goals BEE in Kcals: Using Current wt Calories/Kcals/Kg 25-30 Kcals Calculated 1779-2149 Protein: Using Current wt Protein g/k-1.2 Protein Calculated 78-94 Fluid: ml 1950-2340ml (1ml/kcal) Nutritional Problem 1. Problem Problem inadequate food intake Etiology weakness, poor appetite Signs/Symptoms: PO intake <50%, need for PPN Intervention/Recommendation Comments 1. Start PPN. Monitor intake from nutrition support. 2. Monitor wt, labs and skin integrity 3. F/U as high risk in 2-3 days, 3/2-3/3 Expected Outcomes/Goals Expected Outcomes/Goals 1. PO intake to meet at least 75% of nutritional needs from nutrition support. 2. Wt stability, skin to remain intact, labs to approach WNL.
[2017-12-23] MEDS: Levofloxacin 500mg/100mL 500 MG/100 ML BAG IV SCH (08:46)
[2017-12-23] MEDS: Potassium Chloride 20 mEq ER Tab PO SCH (08:46)
[2017-12-23] MEDS: INSULIN ASPART SLIDING SCALE 100 UNITS/ML UNIT SUBQ SCH ×5 (11:32→22:58)
--- NOTE | 2017-12-23 22:11 | Progress Notes ---
DATE: 12/23/2017 SUBJECTIVE: Case was discussed with staff of the patient, reviewed records. The patient is improving. Sleeping better, eating better, and still on the medical floor. He is not medically cleared yet, however, he is improving. He is sleeping well, eating well. He denies any current intent to harm himself in any way. Denies any visual hallucination or paranoia. No side effects on Remeron. Thank you very much for allowing me to participate in the care of this most interesting patient. JOB# [id number]
--- NOTE | 2017-12-23 23:44 | Progress Notes ---
DATE: 12/23/2017 PULMONARY PROGRESS NOTE PROBLEM LIST: 1. Acute on chronic respiratory failure, improving. 2. Extensive pulmonary fibrosis with chronic respiratory failure with cicatricial emphysema with his psychosis seemingly resolved, probably from hypercarbia as well as hypoxemia. SYMPTOMS: Nil. Feeling okay. Offers no specific new symptoms. Breathing is okay. PHYSICAL EXAMINATION: VITAL SIGNS: T-max 98.1, blood pressure 104/56, and saturation 98%. NECK: Veins not visualized. CHEST: Shows diminished air entry with occasional rhonchi. HEART: Regular. ABDOMEN: Soft. Nontender. LABORATORY DATA: The patient's electrolytes are okay with CO2 content 40. Albumin is 2.4. ASSESSMENT: The patient clinically appears to be stable, not much changed. PLANS AND SUGGESTIONS: We will go ahead and continue current treatment. We will follow through furthermore tests if he is going to be staying here. Otherwise, continue rest of the treatment. JOB# [id number]
[2017-12-24 05:34] LABS: ALB/GLOB RATIO 0.9 (1.0-1.8); ALBUMIN 2.3 gm/dL (4.2-5.5); ALKALINE PHOSPHATASE 94 U/L (34-104); ANION GAP 5.1 (7.0-16.0); BILIRUBIN,TOTAL 0.3 mg/dL (0.3-1.0); BUN - UREA NITROGEN 31 mg/dL (7-25); CALCIUM SERUM 8.9 mg/dL (8.6-10.3); CHLORIDE 95 mEq/L (98-107); CREATININE - SERUM 1.1 mg/dL (0.7-1.3); GLUCOSE 146 mg/dL (70-105); MAGNESIUM 1.9 mg/dL (1.9-2.7); POTASSIUM SERUM 4.1 mEq/L (3.5-5.1); SGOT 17 U/L (13-39); SGPT/ALT 27 U/L (7-52); SODIUM SERUM 136 mEq/L (136-145)
[2017-12-24] MEDS: Albuterol/Ipratropium Neb 3 ML AERS HHN SCH ×4 (06:54→19:20)
[2017-12-24] MEDS: Budesonide 0.5 Mg/2 mL Ud HHN SCH ×2 (06:54→19:20)
[2017-12-24] MEDS: INSULIN ASPART SLIDING SCALE 100 UNITS/ML UNIT SUBQ SCH ×3 (07:06→17:32)
--- NOTE | 2017-12-24 08:36 | General Progress Note ---
Subjective - Review of Systems Service Date: 12/24/17 Subjective: Patient appears better today. More awake and alert. Responding to questions more appropriately. Patient resting comfortably in bed. blood sugars elevated Objective - Results Result Diagrams: 12/22/17 05:32 12/24/17 04:45 Recent Labs: Laboratory Last Values WBC 7.1 Th/cmm (4.8-10.8) D 12/22/17 05:32 RBC 3.26 Mil/cmm (3.80-5.80) L 12/22/17 05:32 Hgb 10.0 gm/dL (12-16) L 12/22/17 05:32 Hct 30.0 % (41.0-60) L 12/22/17 05:32 MCV 92.1 fl (80-99) 12/22/17 05:32 MCH 30.7 pg (27.0-31.0) 12/22/17 05:32 MCHC Differential 33.3 pg (28.0-36.0) 12/22/17 05:32 RDW 17.4 % (11.5-20.0) 12/22/17 05:32 Plt Count 174 Th/cmm (150-400) D 12/22/17 05:32 MPV 6.2 fl 12/22/17 05:32 Neutrophils % 69.9 % (40.0-80.0) 12/16/17 21:00 Band Neutrophils % 2 % (0-10) 12/22/17 05:32 Lymphocytes % 10.6 % (20.0-50.0) L 12/16/17 21:00 Monocytes % 13.9 % (2.0-10.0) H 12/16/17 21:00 Eosinophils % 4.8 % (0.0-5.0) 12/16/17 21:00 Basophils % 0.8 % (0.0-2.0) 12/16/17 21:00 Neutrophils (Manual) 83 % (40-80) H 12/22/17 05:32 Lymphocytes 5 % (20-50) L 12/22/17 05:32 Monocytes 10 % (2-10) 12/22/17 05:32 Eosinophils 8 % (0-5) H 12/16/17 05:40 Basophils 1 % (0-3) 12/16/17 05:40 Hypochromia 1+ 12/16/17 05:40 Platelet Estimate ADEQUATE (NORMAL) 12/22/17 05:32 Polychromasia 1+ 12/16/17 05:40 Anisocytosis 1+ 12/18/17 06:50 Tear Drop Cells 1+ 12/16/17 05:40 Ovalocytes 1+ 12/16/17 05:40 ESR > 105 mm/hr (0-20) H 12/12/17 09:30 Total Retics Counted 2.7 % (0.5-1.5) H 12/12/17 09:30 Absolute Retic 67.2 Th/cmm 12/12/17 09:30 Corrected Retic Count 1.4 % (0.5-1.5) 12/12/17 09:30 Lupus Anticoag aPTT 40.5 sec (0.0-51.9) 12/12/17 09:30 dRVVT Screen 57.2 sec (0.0-47.0) H 12/12/17 09:30 dRVVT Confirm Seconds 1.2 ratio (0.8-1.2) 12/12/17 09:30 dRVVT Mix 47.2 sec (0.0-47.0) H 12/12/17 09:30 Lupus Anticoag Interp Comment: 12/12/17 09:30 Specimen Source Arterial 12/17/17 09:55 Sample Site RB 12/17/17 09:55 pH 7.34 (7.35-7.45) L 12/17/17 09:55 pCO2 77.0 mmHg (35.0-45.0) H* 12/17/17 09:55 pO2 81.0 mmHg (80.0-100.0) 12/17/17 09:55 HCO3 34.6 mEq/L (20.0-26.0) H 12/17/17 09:55 Base Excess 12.5 mEq/L (-3.0-3.0) H 12/17/17 09:55 O2 Saturation 95.0 % (92.0-100.0) 12/17/17 09:55 Lan Test NA 12/17/17 09:55 Vent Rate NA 12/17/17 09:55 Inspired O2 50 12/17/17 09:55 Tidal Volume NA 12/17/17 09:55 PEEP NA 12/17/17 09:55 Pressure (ins/psv/peep) NA 12/17/17 09:55 Critical Value E.MCGOWAN 12/17/17 09:55 Sodium 136 mEq/L (136-145) 12/24/17 04:45 Potassium 4.1 mEq/L (3.5-5.1) 12/24/17 04:45 Chloride 95 mEq/L (98-107) L 12/24/17 04:45 Carbon Dioxide 40.0 mEq/L (21.0-31.0) H 12/24/17 04:45 Anion Gap 5.1 (7.0-16.0) L 12/24/17 04:45 BUN 31 mg/dL (7-25) H 12/24/17 04:45 Creatinine 1.1 mg/dL (0.7-1.3) 12/24/17 04:45 Est GFR ( Amer) TNP 12/24/17 04:45 Est GFR (Non-Af Amer) TNP 12/24/17 04:45 BUN/Creatinine Ratio 28.2 12/24/17 04:45 Glucose 146 mg/dL (70-105) H 12/24/17 04:45 POC Glucose 121 MG/DL (70 - 105) H 12/24/17 06:27 Uric Acid 4.4 mg/dL (4.4-7.6) 12/15/17 13:10 Calcium 8.9 mg/dL (8.6-10.3) 12/24/17 04:45 Phosphorus 3.0 mg/dL (2.5-5.0) 12/24/17 04:45 Magnesium 1.9 mg/dL (1.9-2.7) 12/24/17 04:45 Iron 27 ug/dL (38-169) L 12/12/17 09:30 TIBC 206 ug/dL (250-450) L 12/12/17 09:30 Iron Saturation 13 % (15-55) L 12/12/17 09:30 Unsaturated IBC 179 ug/dL (111-343) 12/12/17 09:30 Ferritin 184 ng/mL (30-400) 12/12/17 09:30 Total Bilirubin 0.3 mg/dL (0.3-1.0) 12/24/17 04:45 Direct Bilirubin 0.14 mg/dL (0.0-0.2) 12/12/17 09:30 AST 17 U/L (13-39) 12/24/17 04:45 ALT 27 U/L (7-52) 12/24/17 04:45 Alkaline Phosphatase 94 U/L (34-104) 12/24/17 04:45 Ammonia 38 umol/L (16-53) 12/15/17 13:10 Lactate Dehydrogenase 119 U/L (140-271) L 12/12/17 09:30 B-Natriuretic Peptide 26.1 pg/mL (5.0-100.0) 12/24/17 04:45 Total Protein 5.0 gm/dL (6.0-8.3) L 12/24/17 04:45 Albumin 2.3 gm/dL (4.2-5.5) L 12/24/17 04:45 Globulin 2.7 gm/dL 12/24/17 04:45 Albumin/Globulin Ratio 0.9 (1.0-1.8) L 12/24/17 04:45 Prealbumin 15 mg/dL (9-32) 12/20/17 05:39 Triglycerides 107 mg/dL (<150) 12/20/17 05:39 Cholesterol 146 mg/dL (<200) 12/18/17 06:50 LDL Cholesterol Direct 82 mg/dL (75-193) 12/12/17 09:30 HDL Cholesterol 39 mg/dL (23-92) 12/12/17 09:30 Vitamin B12 1546 pg/mL (232-1245) H 12/12/17 09:30 Folic Acid 12.3 ng/mL (>3.0) 12/12/17 09:30 Free T4 1.23 ng/dL (0.82-1.77) 12/12/17 09:30 Free T3 1.7 pg/mL (2.0-4.4) L 12/12/17 09:30 TSH 1.64 uIU/ml (0.34-5.60) 12/12/17 09:30 Stool Occult Blood NEGATIVE (NEGATIVE) 12/21/17 10:30 Rheumatoid Factor 16.1 IU/mL (0.0-13.9) H 12/15/17 13:10 ACOSTA Screen Negative 12/12/17 09:30 ANCA Screen SEE REF REPORT 12/12/17 09:30 Proteinase 3 (PR3) SEE REF. LAB REPORT 12/12/17 09:30 Anti-Myeloperoxidase SEE REF. LAB REPORT 12/12/17 09:30 Anti-Ribosomal Ab <0.2 12/12/17 09:30 Chromatin Antibody SEE REF. LAB REPORT 12/12/17 09:30 S.cerevisiae IgG Ab SEE REF. LAB REPORT 12/12/17 09:30 S.cerevisiae IgA Ab SEE REF. LAB REPORT 12/12/17 09:30 Blood Type O NEGATIVE 12/15/17 13:10 Antibody Screen NEGATIVE 12/15/17 13:10 Crossmatch See Detail 12/15/17 13:10 - Physical Exam Vitals and I&O: Vital Signs Temp 97.9 F 12/24/17 04:00 Pulse 114 12/24/17 07:03 Resp 20 12/24/17 07:03 BP 117/60 12/24/17 04:00 Pulse Ox 97 12/24/17 07:03 Intake & Output 12/23/17 12/24/17 12/24/17 18:59 06:59 18:59 Intake Total 120 50 Output Total 1 Balance 120 49 Weight (lbs) 82.1 kg 82.1 kg Intake: Oral 120 50 Output: Urine/Stool Mix 1 Other: # Voids 4 2 # Bowel Movements 0 1 Active Medications: Current Medications Albuterol Sulfate (Albuterol 2.5mg/3ml Neb Ud) 2.5 mg HHN Q4HRT PRN PRN Reason: Shortness of Breath or Wheeze Stop: 02/09/18 13:17 Last Admin: 12/20/17 23:14 Dose: 2.5 mg Albuterol/Ipratropium (Duoneb Neb) 3 ml HHN [id number] DARIANA Stop: 02/10/18 06:59 Last Admin: 12/24/17 06:54 Dose: 3 ml Budesonide (Pulmicort) 0.5 mg HHN BIDRT DARIANA Stop: 02/10/18 06:59 Last Admin: 12/24/17 06:54 Dose: 0.5 mg Calcium Acetate (Phoslo) 667 mg PO TIDWM DARIANA Stop: 02/20/18 07:59 Last Admin: 12/23/17 17:25 Dose: 667 mg Furosemide (Lasix) 40 mg IVP DAILY DARIANA Stop: 02/17/18 08:59 Last Admin: 12/23/17 11:23 Dose: 40 mg Levofloxacin (Levaquin Pb) 500 mg in 100 mls @ 100 mls/hr IV Q24HR DARIANA Stop: 02/15/18 08:59 Last Admin: 12/23/17 08:46 Dose: 100 mls/hr Insulin Aspart (Novolog Insulin Sliding Scale) 0 units SUBQ ACHS DARIANA PRN Reason: Protocol Stop: 02/09/18 16:29 Last Admin: 12/24/17 07:06 Dose: Not Given Mirtazapine (Remeron) 7.5 mg PO HS DARIANA PRN Reason: Protocol Stop: 02/10/18 20:59 Last Admin: 12/23/17 22:58 Dose: 7.5 mg Miscellaneous (Probiotic Screen) 1 ea MC PRN PRN PRN Reason: PROTOCOL Stop: 02/10/18 15:20 Pantoprazole Sodium (Protonix) 40 mg IVP DAILY DARIANA Stop: 02/15/18 08:59 Last Admin: 12/23/17 08:46 Dose: 40 mg Potassium Chloride (Klor-Con) 20 meq PO DAILY DARIANA Stop: 02/17/18 08:59 Last Admin: 12/23/17 08:46 Dose: 20 meq General: Alert, Oriented x3, No acute distress HEENT: Atraumatic, PERRLA, EOMI Neck: Supple Cardiovascular: Regular rate Lungs: Other (OCC RHONCHI) Abdomen: Bowel sounds, Soft, no Distended, no Obese Extremities: no Clubbing, no Cyanosis Neurological: Normal speech - Procedures Procedures: Procedures Procedure Code Date BLOOD TRANSFUSION SERVICE 08527 12/11/17 TRANSFUSE NONAUT RED BLOOD CELLS IN PERIPH VEIN, [facility] [id number] 12/11/17 Assessment/Plan - Assessment Assessment: hypoalbuminemia/mild-moderate malnutrition chronic interstitial lung disease/pulmonary fibrosis cellulitis to left lower extremity Doppler US - DVT psychosis ... resolved. may be secondary to hypercapnia dementia HTN DM chronic anemia h/o malignant melanoma w/ lymph node dissection of the L groin arterial insufficiency to the lower extremities bilaterally L worse than R Elevated RA factor Elevated ESR ... may need outpatient Rheumatology workup hyperkalemia ... will check K+ level hyperglycemia secondary to IV steroids. hypercapnia improved on BiPaP. hypophosphatemia - Plan Plan: see orders Doppler US venous to the Left LE ACOSTA, uric acid, RA pending continue Azithromycin IV and rocephin IV anemia ... will order type and screen 2 units and transfused 2 units packed RBC' s hyperglycemia improved ... off steroids. off TPN. will add Lasix 40mg IV daily and KCL 20meq PO daily. will order Phoslo PO discharge planning Nutritional Asmnt/Malnutr-PDOC - Dietary Evaluation Malnutrition Findings (Please click <Entered> for more info): Nutritional Asmnt/Malnutrition Start: 12/17/17 16: 15 Text: Status: Complete Freq: Document 12/17/17 16:15 LCAYSHAG (Rec: 12/17/17 16:27 LCAYSHA HARSHA-[email or web address]) Nutritional Asmnt/Malnutrition Patient General Information Nutritional Screening Moderate Risk Diagnosis pulmonary fibrosis, acute resp failure Pertinent Medical Hx/Surgical Hx HTN, asthma/COPD, depression, melanoma, DM Subjective Information Pt seen lying in bed on bipap mask. Per record PO intake 0- 50%. RN reported pt had poor PO intake d/t weakness and MD ordered PPN will start soon. Current Diet Order/ Nutrition Support CCHO-60gm Pertinent Medications D5-0.9ns, novolog, levaquin, remeron, protonix Pertinent Labs 12/17 Na 136, K 5.4, Cl 99, BUN 19, Cr 0.9, glucose 209, POC 206-221 Nutritional Hx/Data Height 1.78 m Height (Calculated Centimeters) 177.8 Current Weight (lbs) 78.018 kg Weight (Calculated Kilograms) 78.0 Weight (Calculated Grams) 13679.9 Body Mass Index (BMI) 24.7 GI Symptoms GI Symptoms None Last BM 12/16 Difficult in: None Skin Integrity/Comment: reddened to sacral coccyx buttocks, left leg, left arm Estimated Nutritional Goals BEE in Kcals: Using Current wt Calories/Kcals/Kg 25-30 Kcals Calculated 6491-9591 Protein: Using Current wt Protein g/k-1.2 Protein Calculated 78-94 Fluid: ml 1950-2340ml (1ml/kcal) Nutritional Problem 1. Problem Problem inadequate food intake Etiology weakness, poor appetite Signs/Symptoms: PO intake <50%, need for PPN Intervention/Recommendation Comments 1. Start PPN. Monitor intake from nutrition support. 2. Monitor wt, labs and skin integrity 3. F/U as high risk in 2-3 days, 3/2-3/3 Expected Outcomes/Goals Expected Outcomes/Goals 1. PO intake to meet at least 75% of nutritional needs from nutrition support. 2. Wt stability, skin to remain intact, labs to approach WNL.
[2017-12-24] MEDS: Levofloxacin 500mg/100mL 500 MG/100 ML BAG IV SCH (08:42)
[2017-12-24] MEDS: Potassium Chloride 20 mEq ER Tab PO SCH (08:42)
--- NOTE | 2017-12-24 15:47 | Progress Notes ---
DATE: 12/24/2017 Case was discussed with staff of the patient, reviewed records. The patient was alert today. He was animated. He was eating. He is eating well, sleeping well. He denies any intent to harm self or anybody. He is much more cooperative, compliant. No auditory or visual hallucination or paranoia. He tolerated the Remeron with no side effects. The patient to follow up with the psychiatrist on discharge. Thank you very much for allowing me to participate in the care of this most interesting patient. JOB# [id number]
--- NOTE | 2017-12-25 00:03 | Progress Notes ---
DATE: 12/24/2017 PROBLEM LIST: 1. Chronic respiratory failure. 2. Pulmonary fibrosis. 3. History of hypercarbia and hypoxemia. SYMPTOMS: Nil, feeling okay, offers no specific new symptoms. PHYSICAL EXAMINATION: VITAL SIGNS: Temperature is 98.1, blood pressure 97/47, saturation 100% on 6 L. NECK: Veins not visualized. CHEST: Shows diminished air entry with occasional rhonchi. HEART: Regular. ABDOMEN: Soft, nontender. EXTREMITIES: Shows no peripheral edema. LABORATORY DATA: The patient's current lab is essentially unremarkable done today. ASSESSMENT: The patient is clinically stable. PLANS AND SUGGESTIONS: We will discuss with RT has to cut down oxygen to 2-3 L per minute and see how he does and go from there. JOB# [id number]
[2017-12-25] MEDS: INSULIN ASPART SLIDING SCALE 100 UNITS/ML UNIT SUBQ SCH ×4 (01:11→18:48)
[2017-12-25] MEDS: Albuterol Nebulizer 2.5mg/3mL HHN PRN (02:00)
[2017-12-25 06:05] LABS: ANION GAP 5.4 (7.0-16.0); BUN - UREA NITROGEN 31 mg/dL (7-25); CALCIUM SERUM 9.4 mg/dL (8.6-10.3); CHLORIDE 92 mEq/L (98-107); CREATININE - SERUM 1.4 mg/dL (0.7-1.3); GLUCOSE 121 mg/dL (70-105); POTASSIUM SERUM 4.3 mEq/L (3.5-5.1); SODIUM SERUM 135 mEq/L (136-145)
[2017-12-25 06:23] LABS: CARBON DIOXIDE 41.9 mEq/L (21.0-31.0)
[2017-12-25] MEDS ORDERED: Potassium Chloride 20 mEq ER Tab PO SCH (06:43)
[2017-12-25] MEDS: Albuterol/Ipratropium Neb 3 ML AERS HHN SCH ×3 (07:02→14:43)
[2017-12-25] MEDS: Budesonide 0.5 Mg/2 mL Ud HHN SCH (07:16)
--- NOTE | 2017-12-25 08:28 | General Progress Note ---
Subjective - Review of Systems Service Date: 12/25/17 Subjective: Patient appears better today. More awake and alert. Responding to questions more appropriately. Patient resting comfortably in bed. blood sugars elevated. congested this AM. unable to sleep last night. Objective - Results Result Diagrams: 12/22/17 05:32 12/25/17 05:30 Recent Labs: Laboratory Last Values WBC 7.1 Th/cmm (4.8-10.8) D 12/22/17 05:32 RBC 3.26 Mil/cmm (3.80-5.80) L 12/22/17 05:32 Hgb 10.0 gm/dL (12-16) L 12/22/17 05:32 Hct 30.0 % (41.0-60) L 12/22/17 05:32 MCV 92.1 fl (80-99) 12/22/17 05:32 MCH 30.7 pg (27.0-31.0) 12/22/17 05:32 MCHC Differential 33.3 pg (28.0-36.0) 12/22/17 05:32 RDW 17.4 % (11.5-20.0) 12/22/17 05:32 Plt Count 174 Th/cmm (150-400) D 12/22/17 05:32 MPV 6.2 fl 12/22/17 05:32 Neutrophils % 69.9 % (40.0-80.0) 12/16/17 21:00 Band Neutrophils % 2 % (0-10) 12/22/17 05:32 Lymphocytes % 10.6 % (20.0-50.0) L 12/16/17 21:00 Monocytes % 13.9 % (2.0-10.0) H 12/16/17 21:00 Eosinophils % 4.8 % (0.0-5.0) 12/16/17 21:00 Basophils % 0.8 % (0.0-2.0) 12/16/17 21:00 Neutrophils (Manual) 83 % (40-80) H 12/22/17 05:32 Lymphocytes 5 % (20-50) L 12/22/17 05:32 Monocytes 10 % (2-10) 12/22/17 05:32 Eosinophils 8 % (0-5) H 12/16/17 05:40 Basophils 1 % (0-3) 12/16/17 05:40 Hypochromia 1+ 12/16/17 05:40 Platelet Estimate ADEQUATE (NORMAL) 12/22/17 05:32 Polychromasia 1+ 12/16/17 05:40 Anisocytosis 1+ 12/18/17 06:50 Tear Drop Cells 1+ 12/16/17 05:40 Ovalocytes 1+ 12/16/17 05:40 ESR > 105 mm/hr (0-20) H 12/12/17 09:30 Total Retics Counted 2.7 % (0.5-1.5) H 12/12/17 09:30 Absolute Retic 67.2 Th/cmm 12/12/17 09:30 Corrected Retic Count 1.4 % (0.5-1.5) 12/12/17 09:30 Lupus Anticoag aPTT 40.5 sec (0.0-51.9) 12/12/17 09:30 dRVVT Screen 57.2 sec (0.0-47.0) H 12/12/17 09:30 dRVVT Confirm Seconds 1.2 ratio (0.8-1.2) 12/12/17 09:30 dRVVT Mix 47.2 sec (0.0-47.0) H 12/12/17 09:30 Lupus Anticoag Interp Comment: 12/12/17 09:30 Specimen Source Arterial 12/17/17 09:55 Sample Site RB 12/17/17 09:55 pH 7.34 (7.35-7.45) L 12/17/17 09:55 pCO2 77.0 mmHg (35.0-45.0) H* 12/17/17 09:55 pO2 81.0 mmHg (80.0-100.0) 12/17/17 09:55 HCO3 34.6 mEq/L (20.0-26.0) H 12/17/17 09:55 Base Excess 12.5 mEq/L (-3.0-3.0) H 12/17/17 09:55 O2 Saturation 95.0 % (92.0-100.0) 12/17/17 09:55 Lan Test NA 12/17/17 09:55 Vent Rate NA 12/17/17 09:55 Inspired O2 50 12/17/17 09:55 Tidal Volume NA 12/17/17 09:55 PEEP NA 12/17/17 09:55 Pressure (ins/psv/peep) NA 12/17/17 09:55 Critical Value YOHANNES 12/17/17 09:55 Sodium 135 mEq/L (136-145) L 12/25/17 05:30 Potassium 4.3 mEq/L (3.5-5.1) 12/25/17 05:30 Chloride 92 mEq/L (98-107) L 12/25/17 05:30 Carbon Dioxide 41.9 mEq/L (21.0-31.0) H 12/25/17 05:30 Anion Gap 5.4 (7.0-16.0) L 12/25/17 05:30 BUN 31 mg/dL (7-25) H 12/25/17 05:30 Creatinine 1.4 mg/dL (0.7-1.3) H 12/25/17 05:30 Est GFR ( Amer) TNP 12/25/17 05:30 Est GFR (Non-Af Amer) TNP 12/25/17 05:30 BUN/Creatinine Ratio 22.1 12/25/17 05:30 Glucose 121 mg/dL (70-105) H 12/25/17 05:30 POC Glucose 121 MG/DL (70 - 105) H 12/25/17 07:35 Uric Acid 4.4 mg/dL (4.4-7.6) 12/15/17 13:10 Calcium 9.4 mg/dL (8.6-10.3) 12/25/17 05:30 Phosphorus 3.0 mg/dL (2.5-5.0) 12/24/17 04:45 Magnesium 1.9 mg/dL (1.9-2.7) 12/24/17 04:45 Iron 27 ug/dL (38-169) L 12/12/17 09:30 TIBC 206 ug/dL (250-450) L 12/12/17 09:30 Iron Saturation 13 % (15-55) L 12/12/17 09:30 Unsaturated IBC 179 ug/dL (111-343) 12/12/17 09:30 Ferritin 184 ng/mL (30-400) 12/12/17 09:30 Total Bilirubin 0.3 mg/dL (0.3-1.0) 12/24/17 04:45 Direct Bilirubin 0.14 mg/dL (0.0-0.2) 12/12/17 09:30 AST 17 U/L (13-39) 12/24/17 04:45 ALT 27 U/L (7-52) 12/24/17 04:45 Alkaline Phosphatase 94 U/L (34-104) 12/24/17 04:45 Ammonia 38 umol/L (16-53) 12/15/17 13:10 Lactate Dehydrogenase 119 U/L (140-271) L 12/12/17 09:30 B-Natriuretic Peptide 26.1 pg/mL (5.0-100.0) 12/24/17 04:45 Total Protein 5.0 gm/dL (6.0-8.3) L 12/24/17 04:45 Albumin 2.3 gm/dL (4.2-5.5) L 12/24/17 04:45 Globulin 2.7 gm/dL 12/24/17 04:45 Albumin/Globulin Ratio 0.9 (1.0-1.8) L 12/24/17 04:45 Prealbumin 15 mg/dL (9-32) 12/20/17 05:39 Triglycerides 107 mg/dL (<150) 12/20/17 05:39 Cholesterol 146 mg/dL (<200) 12/18/17 06:50 LDL Cholesterol Direct 82 mg/dL (75-193) 12/12/17 09:30 HDL Cholesterol 39 mg/dL (23-92) 12/12/17 09:30 Vitamin B12 1546 pg/mL (232-1245) H 12/12/17 09:30 Folic Acid 12.3 ng/mL (>3.0) 12/12/17 09:30 Free T4 1.23 ng/dL (0.82-1.77) 12/12/17 09:30 Free T3 1.7 pg/mL (2.0-4.4) L 12/12/17 09:30 TSH 1.64 uIU/ml (0.34-5.60) 12/12/17 09:30 Stool Occult Blood NEGATIVE (NEGATIVE) 12/21/17 10:30 Rheumatoid Factor 16.1 IU/mL (0.0-13.9) H 12/15/17 13:10 ACOSTA Screen Negative 12/12/17 09:30 ANCA Screen SEE REF REPORT 12/12/17 09:30 Proteinase 3 (PR3) SEE REF. LAB REPORT 12/12/17 09:30 Anti-Myeloperoxidase SEE REF. LAB REPORT 12/12/17 09:30 Anti-Ribosomal Ab <0.2 12/12/17 09:30 Chromatin Antibody SEE REF. LAB REPORT 12/12/17 09:30 S.cerevisiae IgG Ab SEE REF. LAB REPORT 12/12/17 09:30 S.cerevisiae IgA Ab SEE REF. LAB REPORT 12/12/17 09:30 Blood Type O NEGATIVE 12/15/17 13:10 Antibody Screen NEGATIVE 12/15/17 13:10 Crossmatch See Detail 12/15/17 13:10 - Physical Exam Vitals and I&O: Vital Signs Temp 97.5 F 12/25/17 00:00 Pulse 106 12/25/17 07:16 Resp 20 12/25/17 08:00 BP 104/46 12/25/17 00:00 Pulse Ox 94 12/25/17 07:16 Intake & Output 12/24/17 12/25/17 12/25/17 18:59 06:59 18:59 Intake Total 100 300 Balance 100 300 Weight (lbs) 79.605 kg Intake: Intake, IV Amount 100 Levofloxacin 500mg/100mL 100 500 mg In 100 ml @ 100 mls/hr IV Q24HR [facility] Rx#: [id number] Oral 300 Other: # Voids 3 # Bowel Movements 0 Active Medications: Current Medications Albuterol Sulfate (Albuterol 2.5mg/3ml Neb Ud) 2.5 mg HHN Q4HRT PRN PRN Reason: Shortness of Breath or Wheeze Stop: 02/09/18 13:17 Last Admin: 12/25/17 02:00 Dose: 2.5 mg Albuterol/Ipratropium (Duoneb Neb) 3 ml HHN [id number] [facility] Stop: 02/10/18 06:59 Last Admin: 12/25/17 07:02 Dose: 3 ml Budesonide (Pulmicort) 0.5 mg HHN BIDRT [facility] Stop: 02/10/18 06:59 Last Admin: 12/25/17 07:16 Dose: 0.5 mg Calcium Acetate (Phoslo) 667 mg PO TIDWM DARIANA Stop: 02/20/18 07:59 Last Admin: 12/25/17 07:33 Dose: 667 mg Furosemide (Lasix) 20 mg PO DAILY DARIANA Stop: 02/23/18 08:59 Levofloxacin (Levaquin Pb) 500 mg in 100 mls @ 100 mls/hr IV Q24HR DARIANA Stop: 02/15/18 08:59 Last Infusion: 12/24/17 09:45 Dose: Infused Insulin Aspart (Novolog Insulin Sliding Scale) 0 units SUBQ ACHS DARIANA PRN Reason: Protocol Stop: 02/09/18 16:29 Last Admin: 12/25/17 07:36 Dose: Not Given Mirtazapine (Remeron) 7.5 mg PO HS DARIANA PRN Reason: Protocol Stop: 02/10/18 20:59 Last Admin: 12/24/17 20:36 Dose: 7.5 mg Miscellaneous (Probiotic Screen) 1 ea MC PRN PRN PRN Reason: PROTOCOL Stop: 02/10/18 15:20 Pantoprazole Sodium (Protonix) 40 mg IVP DAILY DARIANA Stop: 02/15/18 08:59 Last Admin: 12/24/17 08:42 Dose: 40 mg Potassium Chloride (Klor-Con) 10 meq PO DAILY DARIANA Stop: 02/23/18 06:42 General: Alert, Oriented x3, No acute distress HEENT: Atraumatic, PERRLA, EOMI Neck: Supple Cardiovascular: Regular rate Lungs: Other (OCC RHONCHI) Abdomen: Bowel sounds, Soft, no Distended, no Obese Extremities: no Clubbing, no Cyanosis Neurological: Normal speech - Procedures Procedures: Procedures Procedure Code Date BLOOD TRANSFUSION SERVICE 94675 12/11/17 TRANSFUSE NONAUT RED BLOOD CELLS IN PERIPH VEIN, [facility] [id number] 12/11/17 Assessment/Plan - Assessment Assessment: hypoalbuminemia/mild-moderate malnutrition chronic interstitial lung disease/pulmonary fibrosis cellulitis to left lower extremity Doppler US - DVT psychosis ... resolved. may be secondary to hypercapnia dementia HTN DM chronic anemia h/o malignant melanoma w/ lymph node dissection of the L groin arterial insufficiency to the lower extremities bilaterally L worse than R Elevated RA factor Elevated ESR ... may need outpatient Rheumatology workup hyperkalemia ... will check K+ level hyperglycemia secondary to IV steroids. hypercapnia improved on BiPaP. hypophosphatemia - Plan Plan: see orders Doppler US venous to the Left LE ACOSTA, uric acid, RA pending continue Azithromycin IV and rocephin IV anemia ... will order type and screen 2 units and transfused 2 units packed RBC' s hyperglycemia improved ... off steroids. off TPN. will add Lasix 40mg IV daily and KCL 20meq PO daily. will order Phoslo PO will restart oral prednisone will check chest xray this AM discharge planning Nutritional Asmnt/Malnutr-PDOC - Dietary Evaluation Malnutrition Findings (Please click <Entered> for more info): Nutritional Asmnt/Malnutrition Start: 12/17/17 16: 15 Text: Status: Complete Freq: Document 12/17/17 16:15 HEN (Rec: 12/17/17 16:27 [email or web address] Nutritional Asmnt/Malnutrition Patient General Information Nutritional Screening Moderate Risk Diagnosis pulmonary fibrosis, acute resp failure Pertinent Medical Hx/Surgical Hx HTN, asthma/COPD, depression, melanoma, DM Subjective Information Pt seen lying in bed on bipap mask. Per record PO intake 0- 50%. RN reported pt had poor PO intake d/t weakness and MD ordered PPN will start soon. Current Diet Order/ Nutrition Support CCHO-60gm Pertinent Medications D5-0.9ns, novolog, levaquin, remeron, protonix Pertinent Labs 12/17 Na 136, K 5.4, Cl 99, BUN 19, Cr 0.9, glucose 209, POC 206-221 Nutritional Hx/Data Height 1.78 m Height (Calculated Centimeters) 177.8 Current Weight (lbs) 78.018 kg Weight (Calculated Kilograms) 78.0 Weight (Calculated Grams) 33641.9 Body Mass Index (BMI) 24.7 GI Symptoms GI Symptoms None Last BM 12/16 Difficult in: None Skin Integrity/Comment: reddened to sacral coccyx buttocks, left leg, left arm Estimated Nutritional Goals BEE in Kcals: Using Current wt Calories/Kcals/Kg 25-30 Kcals Calculated 5460-3115 Protein: Using Current wt Protein g/k-1.2 Protein Calculated 78-94 Fluid: ml 1950-2340ml (1ml/kcal) Nutritional Problem 1. Problem Problem inadequate food intake Etiology weakness, poor appetite Signs/Symptoms: PO intake <50%, need for PPN Intervention/Recommendation Comments 1. Start PPN. Monitor intake from nutrition support. 2. Monitor wt, labs and skin integrity 3. F/U as high risk in 2-3 days, 3/2-3/3 Expected Outcomes/Goals Expected Outcomes/Goals 1. PO intake to meet at least 75% of nutritional needs from nutrition support. 2. Wt stability, skin to remain intact, labs to approach WNL.
[2017-12-25] MEDS: Levofloxacin 500mg/100mL 500 MG/100 ML BAG IV SCH (09:43)
--- NOTE | 2017-12-25 10:04 | Diagnostic Imaging Report ---
CHEST X-RAY: AP view INDICATION: Congestion COMPARISON: Chest x-ray 12/17/[address] chest on 12/17/2017 FINDINGS: Congestive changes are seen with diffuse bilateral infiltrates greatest within the lung bases. Heart size is normal. Left upper lobe scarring is noted. Heart size is normal. IMPRESSION: Persistent congestive changes and bilateral infiltrates greatest within the lung bases. Chronic lung changes.
[2017-12-25] MEDS ORDERED: NYSTATIN 100000 UNITS/GM POWD TP SCH (17:00)
--- NOTE | 2017-12-25 19:25 | Progress Notes ---
DATE: 12/25/2017 The patient's depression has improved. He is sleeping better, eating better. He is compliant with the medication with no side effects, no sedation, no nausea, and he denies any current intent to harm self or anybody. He denies any auditory or visual hallucination or paranoia. Seems to be showing progress; however, physically, he is still not doing well and we will continue to work. Thank you very much for allowing me to participate in the care of this most interesting gentleman. [facility]# [id number]
--- NOTE | 2017-12-25 22:17 | Progress Notes ---
DATE: 12/25/2017 PULMONARY PROGRESS NOTE PROBLEM LIST: Respiratory failure secondary to extensive pulmonary fibrosis, etc. No other specific new symptoms. PHYSICAL EXAMINATION: VITAL SIGNS: The patient's recorded vitals: Temperature is 98.5, blood pressure 113/64. NECK: Veins not visualized. CHEST: Shows diminished air entry with occasional rhonchi. HEART: Regular. ABDOMEN: Soft, nontender. EXTREMITIES: Shows no peripheral edema. ASSESSMENT: The patient clinically appears to be stable with chronic infiltrated and pulmonary fibrotic changes. PLANS AND SUGGESTIONS: We will continue current respiratory care, inhalation treatment, etc., and go from there. JOB# [id number]
--- NOTE | 2017-12-27 02:26 | Progress Notes ---
DATE: 12/25/2017 PULMONARY PROGRESS NOTE PROBLEM LIST: 1. Acute respiratory failure, improving. 2. Bilateral pulmonary fibrosis with cicatricial emphysema, unchanged. SYMPTOMS: Nil and he is doing okay. No specific new symptomatology at this particular time. PHYSICAL EXAMINATION: VITAL SIGNS: Temperature is 98.8, respirations 20 and saturation 99. NECK: Veins not visualized. CHEST: Shows diminished air entry with occasional rhonchi. HEART: Regular. ABDOMEN: Soft, nontender. ASSESSMENT: The patient clinically appears to be stable, not much changed. PLANS AND SUGGESTIONS: We will go ahead and continue current treatment and go from there. JOB# [id number]
--- NOTE | 2017-12-27 08:38 | Discharge Summary ---
DATE OF DISCHARGE: 12/25/2017 PRELIMINARY DIAGNOSES: 1. Hypoalbuminemia, [id number] malnutrition. 2. Chronic interstitial lung disease secondary to pulmonary fibrosis. 3. Cellulitis to the left lower extremity. 4. Psychosis. 5. Dementia. 6. Hypertension. 7. Diabetes mellitus. 8. Chronic anemia. 9. History of malignant melanoma versus lymph node with lymph node dissection in the left groin. 10. Arterial insufficiency to the lower extremities bilaterally. 11. Elevated RA factor. 12. Elevated sed rate. 13. Hyperkalemia. 14. Hyperglycemia secondary to IV steroids. DISCHARGE DIAGNOSES: 1. Hypoalbuminemia, wlsm-[id number]-wuzwloas malnutrition. 2. Chronic interstitial lung disease secondary to pulmonary fibrosis. 3. Cellulitis to the left lower extremity. 4. Psychosis. 5. Dementia. 6. Hypertension. 7. Diabetes mellitus. 8. Chronic anemia. 9. History of malignant melanoma versus lymph node with lymph node dissection in the left groin. 10. Arterial insufficiency to the lower extremities bilaterally. 11. Elevated RA factor. 12. Elevated sed rate. 13. Hyperkalemia. 14. Hyperglycemia secondary to IV steroids. BRIEF HISTORY OF PRESENT ILLNESS: This is a 77-year-old male who was originally admitted to [facility] for severe depression and for possible thoughts of hurting himself. The patient was noted to have increased chest congestion with low O2 and was then subsequently transferred to medical surgical floor for further evaluation and treatment. The patient has a previous history of hypertension, diabetes, asthma, COPD, malignant melanoma with lymph node dissection to the left groin. HOSPITAL COURSE: The patient improved during his hospital stay, was seen and evaluated by Cardiology. See dictated report. Also, Pulmonology, Dr. Jaime Neil. See dictated report. During his hospital stay, CT of the chest was ordered and revealed the patient is showing extensive emphysematous changes to the lungs consistent with pulmonary fibrosis, interstitial lung disease, also was noted small bibasilar consolidation consistent with possible pneumonia. The patient was started on IV antibiotics, given IV steroids, started on breathing treatments. During his hospital stay, the patient was found to have an elevated sed rate along with RA factor consistent with rheumatoid arthritis, during which time the patient was started on steroids. His blood sugar was noted to be elevated due to the steroids and was placed on a sliding scale index with regular insulin. During his hospital stay, the patient also was found to be anemic and was given blood transfusions. The patient was found to be malnourished as well with a low albumin, poor p.o. intake. The patient was initially started on TPN per pharmacy, but this was subsequently discontinued as the patient's appetite improved. The patient was then subsequently discharged in stable condition actually to long-term acute care and to continue his treatment and evaluation there. [facility]# [id number]
== END 2017-12-25 19:14 | DRG 196 ==
LOC: MSI 09:56 → TELE 12-22 15:18 → MSI 12-25 17:52
PROVIDERS: ADMIT Family Medicine; ATTEND Family Medicine
PROC: 30233N1 Transfusion of Nonautologous Red Blood Cells into Peripheral Vein, Percutaneous Approach (ICD-10-PCS; principal; 2017-12-16)
PROC: 0XH Anatomical Regions, Upper Extremities, Insertion (ICD-10-PCS; 2017-12-16)
PROC: 5A09457 Assistance with Respiratory Ventilation, 24-96 Consecutive Hours, Continuous Positive Airway Pressure (ICD-10-PCS; 2017-12-17)
PROC: 3E0336Z Introduction of Nutritional Substance into Peripheral Vein, Percutaneous Approach (ICD-10-PCS; 2017-12-17)
PROC: 5A09357 Assistance with Respiratory Ventilation, Less than 24 Consecutive Hours, Continuous Positive Airway Pressure (ICD-10-PCS; 2017-12-19)
PROC: 5A09357 Assistance with Respiratory Ventilation, Less than 24 Consecutive Hours, Continuous Positive Airway Pressure (ICD-10-PCS; 2017-12-20)
PROC: 5A09457 Assistance with Respiratory Ventilation, 24-96 Consecutive Hours, Continuous Positive Airway Pressure (ICD-10-PCS; 2017-12-22)
DX: J84.10 Pulmonary fibrosis, unspecified (principal); J18.9 Pneumonia, unspecified organism; J96.21 Acute and chronic respiratory failure with hypoxia; E43 Unspecified severe protein-calorie malnutrition; L03.116 Cellulitis of left lower limb; I11.0 Hypertensive heart disease with heart failure; F33.2 Major depressive disorder, recurrent severe without psychotic features; E87.5 Hyperkalemia; I50.32 Chronic diastolic (congestive) heart failure; E83.39 Other disorders of phosphorus metabolism; J96.22 Acute and chronic respiratory failure with hypercapnia; J44.0 Chronic obstructive pulmonary disease with (acute) lower respiratory infection; J44.1 Chronic obstructive pulmonary disease with (acute) exacerbation; G47.33 Obstructive sleep apnea (adult) (pediatric); D50.9 Iron deficiency anemia, unspecified; J20.9 Acute bronchitis, unspecified; F29 Unspecified psychosis not due to a substance or known physiological condition; F03.90 Unspecified dementia, unspecified severity, without behavioral disturbance, psychotic disturbance, mood disturbance, and anxiety; R73.9 Hyperglycemia, unspecified; T38.0X5A Adverse effect of glucocorticoids and synthetic analogues, initial encounter; M06.9 Rheumatoid arthritis, unspecified; Z85.820 Personal history of malignant melanoma of skin; Y92.89 Other specified places as the place of occurrence of the external cause; Z79.4 Long term (current) use of insulin; Z68.25 Body mass index [BMI] 25.0-25.9, adult
CPT/HCPCS: 36415-UA; 36600-90; 71045-TC; 71250-TC; 80048-TC; 80053-TC; 80061-TC; 82140-TC; 82248-TC; 82270-TC; 82465-TC; 82607-90; 82728-90; 82746-90; 82803-TC; 82948-90; 83520-90; 83540-90; 83550-90; 83615-TC; 83735-TC; 83880-TC; 84100-TC; 84134-90; 84439-90; 84443-TC; 84478-TC; 84479-90; 84550-TC; 85007-TC; 85025-TC; 85027-TC; 85044-TC; 85613; 85613-90; 85652-TC; 85730-90; 86021-90; 86038-90; 86235-90; 86430-90; 86671-90; 86850-TC; 86900-TC; 86901-TC; 86922-TC; 87046-90; 90799; 93005; 93925-TC; 93970-TC-50; 94660; 94760; C9113; J0456; J0696; J1364; J1815; J1940; J1956; J2920; J7040; J7042; J7613; P9016; X6598; Z7610